=== PATIENT | male | born 1965 | race Caucasian/White ===

== ENCOUNTER → 2021-01-31 02:48 | Outpatient (CLI) | payer OTHER, SELFPAY ==
[2021-01-31 20:46] LABS: SARS-CoV-2 RNA PCR Negative
== END ==
PROVIDERS: PCP Internal Medicine; Visit Provider Internal Medicine Gastroenterology
DX: Z01.812 Encounter for preprocedural laboratory examination (principal); Z20.822 Contact with and (suspected) exposure to COVID-19
CPT/HCPCS: C9803; U0003; U0005

== ENCOUNTER 2021-02-03 02:06 | Day surgery (SDC) | payer OTHER, SELFPAY ==
[2021-01-24 15:14] VITALS: BMI 32.5
[2021-02-03 10:34] VITALS: BP 166/91; PULSE 104; RESP 18; TEMP 36.9; O2SAT 98
[2021-02-03] MEDS: LACTATED RINGERS 1,000 ML 150 ML IV CONT (10:45)
--- NOTE | 2021-02-03 11:10 | WPDANESEPPF ---
Anes - Initial Pre Proc Eval Procedure: Operation Date: 02/03/21 11:00 Proposed Procedures p Screening Colonoscopy - Jeffrey Duke MD Date/Time: 02/03/21 11:10 Surgeon: Jeffrey Duke MD Pre Op Diagnosis: neoplasm screening z12.11 Patient Data Age: 55 Gender: M Height: 1.83 m Weight: 109.6 kg Last Vital Signs Temp 98.4 F 02/03/21 10:34 Pulse 104 H 02/03/21 10:34 Resp 18 02/03/21 10:34 BP 166/91 H 02/03/21 10:34 Pulse Ox 98 02/03/21 10:34 Allergies Allergy/AdvReac Type Severity Reaction Status Date / Time No Known Allergies Allergy Verified 02/03/21 10:33 Home Medications Medication Instructions Recorded Confirmed Type allopurinol 100 mg PO DAILY 01/24/21 02/03/21 History duloxetine [Cymbalta] 30 mg PO DAILY 01/24/21 02/03/21 History furosemide 40 mg PO DAILY 01/24/21 02/03/21 History lisinopril 10 mg PO DAILY 01/24/21 02/03/21 History meloxicam 15 mg PO DAILY 01/24/21 02/03/21 History omeprazole 40 mg PO DAILY 01/24/21 02/03/21 History prednisone 5 mg PO DAILY 01/24/21 02/03/21 History Patient hx anesthesia problems: none Family hx anesthesia problems: none PMFSH Social History Social History Smoking status: Never smoker Substance use: never Substance use type: does not use Living arrangements: alone Gender identity (if verbalized by the patient): Male Spiritual care concerns: No Anes - Eval Final PreProcedure Day of Procedure 02/03/21 11:10 Patient weight: obese Heart: regular rate and rhythm Lungs: clear to auscultation Airway: Mallampati scale class II Neurological: alert and oriented Last oral intake: >/= 8 hours ASA classification: III Emergent: no Anesthetic plan: proceed Anesthesia type and monitoring: general GIVS and standard monitoring Informed Consent: The patient's anesthetic plan and its attendant risks and benefits were discussed with the patient/family/POA. Questions were solicited and answers provided to the satisfaction of the patient/family/POA.
--- NOTE | 2021-02-03 11:21 | PM.HPGS ---
History of Present Illness History of Present Illness Consent: Risks, benefits, and alternatives have been discussed and questions answered. Patient agrees to proceed with procedure. Chief complaint: neoplasm screening z12.11 Narrative: Odilon May is a 55 year old male here for first screening colonoscopy Review of Systems Constitutional: Constitutional: Denies headache(s) and Denies weakness Eyes: Eyes: Denies blurry vision ENT: Reports Normal hearing present, Denies headache(s) and Denies neck pain Cardiovascular: Cardiovascular: Denies chest pain and Denies dyspnea Respiratory: Respiratory: Denies dyspnea Gastrointestinal: Gastrointestinal: Reports no additional gastrointestinal complaints Genitourinary: Genitourinary: Denies dysuria Musculoskeletal: Musculoskeletal: Denies neck pain Integumentary/Breasts: Skin/Breast: Denies dry skin Neurologic: Reports Normal hearing present, Denies headache(s) and Denies weakness Psychiatric: Psychiatric: Denies anxiety Endocrine: Endocrine: Denies change in body appearance Hematologic/Lymphatic: Hematologic/Lymphatic: Denies easy bleeding Allergic/Immunologic: Allergic/Immunologic: Denies urticaria PMFSH Past Medical History Medical History (Updated 02/03/21 @ 11:21 by Jeffrey Duke MD) Colon cancer screening Social History Social History Smoking status: Never smoker Substance use: never Substance use type: does not use Living arrangements: alone Gender identity (if verbalized by the patient): Male Spiritual care concerns: No Meds Home Medications and Allergies Home Medications Medication Instructions Recorded Confirmed Type allopurinol 100 mg PO DAILY 01/24/21 02/03/21 History duloxetine [Cymbalta] 30 mg PO DAILY 01/24/21 02/03/21 History furosemide 40 mg PO DAILY 01/24/21 02/03/21 History lisinopril 10 mg PO DAILY 01/24/21 02/03/21 History meloxicam 15 mg PO DAILY 01/24/21 02/03/21 History omeprazole 40 mg PO DAILY 01/24/21 02/03/21 History prednisone 5 mg PO DAILY 01/24/21 02/03/21 History Allergies Allergy/AdvReac Type Severity Reaction Status Date / Time No Known Allergies Allergy Verified 02/03/21 10:33 Vital Signs Vital Signs - 24 hr 02/03/21 10:34 Temperature 98.4 F Pulse Rate 104 H Respiratory Rate 18 Blood Pressure 166/91 H Pulse Oximetry 98 Exam Const: General: comfortable and no acute distress HENMT: General nose exam: Normal nares present Eyes: General: appearance normal, both eyes and all related structures Neck: Neck: no JVD Resp: Auscultation: clear to auscultation bilaterally Cardio: Rate: regular rate Rhythm: regular rhythm GI: Inspection: non-distended GI Palp: Yes Soft to palpation Skin: General skin exam: normal color Neuro: General: gait normal Speech: normal speech Extrem: General: normal to inspection Psych: Mental Status: mental status grossly normal Assessment and Plan Assessment and plan (1) Colon cancer screening: Code(s): Z12.11 - Encounter for screening for malignant neoplasm of colon Status: Acute Assessment and Plan: colonoscopy
[2021-02-03 12:02] VITALS: BP 124/87; PULSE 91; RESP 23; O2SAT 94
[2021-02-03 12:12] VITALS: BP 130/84; PULSE 96; RESP 24; O2SAT 96
[2021-02-03 12:22] VITALS: BP 127/71; PULSE 80; RESP 19; O2SAT 100
== END 2021-02-03 12:49 | disposition home or self-care (01) ==
PROVIDERS: PCP Internal Medicine; Visit Provider Internal Medicine Gastroenterology
PROC: 0DJD8ZZ Inspection of Lower Intestinal Tract, Via Natural or Artificial Opening Endoscopic (ICD-10-PCS; CPT 45378; principal; 2021-02-03 11:00)
DX: Z12.11 Encounter for screening for malignant neoplasm of colon (principal); D12.3 Benign neoplasm of transverse colon; D12.4 Benign neoplasm of descending colon; D12.5 Benign neoplasm of sigmoid colon; D12.7 Benign neoplasm of rectosigmoid junction; K63.5 Polyp of colon; K64.8 Other hemorrhoids; E66.9 Obesity, unspecified; Z68.32 Body mass index [BMI] 32.0-32.9, adult
CPT/HCPCS: 45385; 45381; 88305; J2704; J7120

== ENCOUNTER 2021-02-05 21:23 | Emergency (ER) | payer OTHER, SELFPAY ==
--- NOTE | ~2021-02-05 | XR_ITS ---
EXAMINATION: XR knee RT 3V DATE: 02/05/2021 21:57 INDICATION: Right knee pain. TECHNIQUE: 4 views of right knee were obtained. COMPARISON: Right knee radiographs 05/09/2016 FINDINGS: There is a total right knee arthroplasty in near-anatomic alignment with patellar resurfaci ng. No fracture. No periprosthetic lucency to suggest loosening or infection. There is a moderate-siz ed knee joint effusion. There is prepatellar and superficial infrapatellar soft tissue swelling. IMPRESSION: 1. Total right knee arthroplasty in near-anatomic alignment. 2. Moderate-sized right knee joint effusion. Reviewed, dictated and finalized at location A.
[2021-02-05 21:25] VITALS: BP 139/91; PULSE 103; RESP 20; TEMP 36.8; O2SAT 99
[2021-02-05] MEDS: KETOROLAC (*BKC) 60 MG/2 ML VIAL IM (21:57)
--- NOTE | 2021-02-05 22:25 | ED.EXTPRO ---
HPI - Extremity Problem General Chief complaint: Extremity Problem,Nontraumatic Stated complaint: knee pain Time Seen by Provider: 02/05/21 21:25 Source: patient and RN notes reviewed Mode of arrival: ambulatory Limitations: no limitations History of Present Illness MD Complaint: extremity pain and joint paint (right knee pain after a twist x this PM.) Onset (ago): hour(s) (2) Location: right and knee Severity scale (1-10): 8 Quality: aching Radiation: none Relieving factors: immobilization and medication Related Data Home Medications Medication Instructions Recorded Confirmed allopurinol 100 mg PO DAILY 01/24/21 02/05/21 duloxetine [Cymbalta] 30 mg PO DAILY 01/24/21 02/05/21 furosemide 40 mg PO DAILY 01/24/21 02/05/21 lisinopril 10 mg PO DAILY 01/24/21 02/05/21 meloxicam 15 mg PO DAILY 01/24/21 02/05/21 omeprazole 40 mg PO DAILY 01/24/21 02/05/21 prednisone 5 mg PO DAILY 01/24/21 02/05/21 Allergies Allergy/AdvReac Type Severity Reaction Status Date / Time No Known Allergies Allergy Verified 02/03/21 10:33 Review of Systems Review of Systems: All systems reviewed & are unremarkable except as noted in HPI and below Musculoskeletal: Musculoskeletal: Reports arthralgias PMFSH Past Medical History Medical History Colon cancer screening Knee pain Social History Social History Smoking status: Never smoker Substance use: never Substance use type: does not use Gender identity (if verbalized by the patient): Male Spiritual care concerns: No Exam Const: General: no acute distress and alert Nutritional Appearance: well nourished Orientation/consciousness: patient oriented x3 Limitations: no limitations HENMT: Head: normal to inspection Ears: external ears normal and TM's normal bilaterally General nose exam: Normal external nose present and Normal nares present Mouth: Yes moist mucous membranes Eyes: Conjunctivae: conjunctivae normal Pupils: Equal, round and reactive pupils present EOM: EOMs intact bilaterally Neck: Neck: normal visual inspection and no lymphadenopathy Chest: Chest palpation & inspection: normal inspection of the chest Resp: Effort & Inspection: normal respiratory effort Auscultation: clear to auscultation bilaterally Cardio: Rate: regular rate Rhythm: regular rhythm GI: GI Palp: Yes Soft to palpation (non-tender.) Percussion: Yes normal to percussion : General: Yes bladder normal to palpation and Yes no CVA tenderness Male General Exam: Yes normal external exam Testes: Testes normal Back/Spine/Pelvis: Back: no CVA tenderness Skin: General skin exam: normal color Neuro: General: patient oriented x3, moves all extremities, no meningeal signs, no focal motor deficits and CN's II-XI intact bilaterally Extrem: General: no pedal edema Other: mild right knee effusion with no acute redness, deformity or marked swelling. full ROM with pain. no acute neurovascular deficit. Psych: Appearance: grossly normal and well kempt Mental Status: mental status grossly normal Affect: normal affect Thought content: Yes Normal thought content present Course Course Emergency Course: Pt was stable in the ED with less right knee pain. Reevaluation(s) Reevaluation #1: Pt was stable in the ED with less right knee pain Date: 02/06/21 Time: 22:21 Vital Signs Vital signs: Vital Signs Temperature 36.8 C 02/05/21 21:25 Pulse Rate 103 H 02/05/21 21:25 Respiratory Rate 02/05/21 21:25 Blood Pressure 139/91 H 02/05/21 21:25 Pulse Oximetry 99 02/05/21 21:25 Temperature 36.3 C L 02/05/21 22:36 Pulse Rate 84 02/05/21 22:36 Respiratory Rate 20 02/05/21 22:36 Blood Pressure 142/67 H 02/05/21 22:36 Pulse Oximetry 98 02/05/21 22:36 MDM - Extremity (Nontraumatic) Differential Diagnosis Differential diagnosis: Likely other (right knee sprain)
[2021-02-05 22:36] VITALS: BP 142/67; PULSE 84; RESP 20; TEMP 36.3; O2SAT 98
== END 2021-02-05 22:40 | disposition home or self-care (01) ==
PROVIDERS: Emergency Provider Emergency Medicine; PCP Internal Medicine
DX: S83.91XA Sprain of unspecified site of right knee, initial encounter (principal)
CPT/HCPCS: 73562; 96372; 99283; J1885; L1830

== ENCOUNTER 2021-02-13 10:52 | Outpatient (RCR) | payer OTHER, SELFPAY ==
--- NOTE | 2021-02-13 12:04 | PTOPEVAL ---
Thank you for referring Odilon May to [facility].? The patient is scheduled to be seen for therapy? ____x/week for ___ weeks. Please review, sign, date and return this plan of care JUAN ALBERTO. I agree with and certify that the following plan of care is medically necessary. Referring Physician Date Admitting Provider: Attending Provider: Sally Cason, MINILAB OPERATOR Referring Provider: *PT Outpatient Evaluation Start: 02/13/21 11:05 Freq: Status: Active Protocol: Document 02/13/21 11:05 [facility] (Rec: 02/13/21 12:03 [facility] [id number]) Therapy Assessment Status Assessment Status Assessment Status Evaluation Outpatient Past Medical History Neurological History Hx Neurological Disorders No Significant History Cardiovascular History Hx Hypercholesterolemia Yes Hx Hypertension Yes Respiratory History Hx Sleep Apnea Yes Gastrointestinal History Hx Other Gastrointestinal Disorders Yes: colonoscopy 02/03/21 Genitourinary History Hx Genitourinary Disorders No Significant History Musculoskeletal History Hx Arthritis Yes Hx Joint Replacement Yes: R. knee Hx Rheumatoid Arthritis Yes Hematological History Hx Hematological Disorders No Significant History Endocrine History Hx Endocrine Disorders No Significant History HEENT History Hx HEENT Disorders No Significant History Integumentary History Hx Skin Disorders No Significant History Reproductive History Hx Reproductive Disorders No Significant History Psychosocial History Hx Depression Yes Pain History History of Any Previous or Ongoing No Significant History Instance of Pain Anesthesia History Hx Anesthesia Reactions No Significant History Evaluation Information Problem Diagnosis R knee pain Onset 02/05/21 Additional Evaluation Detail LEFS = 42% functionally declined Subjective Information patient reports he has been Query Text:As Reported By Patient/ doing well with his knee Family replacement up until this past weekend when he stepped off his porch. he reports he did not twist the knee, but felt a sharp/immediate pop/pain along the inside of the R knee . he reports the ortho thinks his hardware looks goog, but he may have had an ligamentous injury along the medial R knee. he reports initially he had a palpable swollen knot,
--- NOTE | 2021-03-03 13:49 | PTOPEVAL ---
Thank you for referring Odilon May to [facility].? The patient is scheduled to be seen for therapy? ____x/week for ___ weeks. Please review, sign, date and return this plan of care JUAN ALBERTO. I agree with and certify that the following plan of care is medically necessary. Referring Physician Date Admitting Provider: Attending Provider: Sally Cason, CAMERA TUNING ENGINEER Referring Provider: *PT Outpatient Evaluation Start: 02/13/21 11:05 Freq: Status: Active Protocol: Document 03/03/21 13:00 [facility] (Rec: 03/03/21 13:47 [facility] [id number]) Therapy Assessment Status Assessment Status Assessment Status Evaluation Outpatient Past Medical History Neurological History Hx Neurological Disorders No Significant History Cardiovascular History Hx Hypercholesterolemia Yes Hx Hypertension Yes Respiratory History Hx Sleep Apnea Yes Gastrointestinal History Hx Other Gastrointestinal Disorders Yes: colonoscopy 02/03/21 Genitourinary History Hx Genitourinary Disorders No Significant History Musculoskeletal History Hx Arthritis Yes Hx Joint Replacement Yes: R. knee Hx Rheumatoid Arthritis Yes Hematological History Hx Hematological Disorders No Significant History Endocrine History Hx Endocrine Disorders No Significant History HEENT History Hx HEENT Disorders No Significant History Integumentary History Hx Skin Disorders No Significant History Reproductive History Hx Reproductive Disorders No Significant History Psychosocial History Hx Depression Yes Pain History History of Any Previous or Ongoing No Significant History Instance of Pain Anesthesia History Hx Anesthesia Reactions No Significant History Evaluation Information Problem Diagnosis R knee pain Onset 02/05/21 Subjective Information patient reports he feels good Query Text:As Reported By Patient/ this date. he reports no Family pain in the R knee this date. he reports the last few days he has no noticed any fluid in the R knee. he reports a mild bit of tightness in the R knee, but reports barely even enough to notice. Pain Assessment Timing of Pain Assessment Timing of Pain Assessment Assessment Pain Scale Pain Scale Used Numeric (1 - 10) Self Report Pain Assessment Right Knee(s) Reported Pain Level 0 Pain Score Pain Score 0: Self Report Interventions Used Interventions Used By Clinicians Activity or ADL's,Education, Exercise Lower Extremity R
== END 2021-03-03 14:41 | disposition home or self-care (01) ==
LOC: CHSPT 10:52
PROVIDERS: PCP Internal Medicine; Visit Provider Nurse Practitioner Family
DX: S86.911A Strain of unspecified muscle(s) and tendon(s) at lower leg level, right leg, initial encounter (principal)
CPT/HCPCS: 97110; 97161; 97530

== ENCOUNTER → 2021-09-12 01:59 | Outpatient (CLI) | payer MEDICARE, SELFPAY ==
[2021-09-12 11:50] LABS: SARS-CoV-2 RNA PCR Negative
== END ==
PROVIDERS: PCP Internal Medicine; Visit Provider Internal Medicine Gastroenterology
DX: Z01.812 Encounter for preprocedural laboratory examination (principal); Z20.822 Contact with and (suspected) exposure to COVID-19
CPT/HCPCS: C9803; U0003; U0005

== ENCOUNTER 2021-09-15 00:31 | Day surgery (SDC) | payer MEDICARE, SELFPAY ==
[2021-09-04 13:09] VITALS: BMI 33.0
[2021-09-15 10:08] VITALS: BP 155/86; PULSE 91; RESP 18; TEMP 36.1; O2SAT 99
--- NOTE | 2021-09-15 10:10 | P.PNAN_ITS ---
Anes - Initial Pre Proc Eval Procedure: Operation Date: 09/15/21 11:30 Proposed Procedures p Screening Colonoscopy - Jeffrey Duke MD Date/Time: 09/15/21 10:10 Surgeon: Jeffrey Duke MD Pre Op Diagnosis: hx of colon polyps Patient Data Age: 55 Gender: M Height: 1.85 m Weight: 113.6 kg Allergies Allergy/AdvReac Type Severity Reaction Status Date / Time No Known Allergies Allergy Verified 09/15/21 10:06 Home Medications Medication Instructions Recorded Confirmed Type allopurinol 100 mg PO DAILY 01/24/21 09/15/21 History duloxetine [Cymbalta] 30 mg PO DAILY 01/24/21 09/15/21 History furosemide 40 mg PO DAILY 01/24/21 09/15/21 History lisinopril 10 mg PO DAILY 01/24/21 09/15/21 History meloxicam 15 mg PO DAILY 01/24/21 09/15/21 History omeprazole 40 mg PO DAILY 01/24/21 09/15/21 History prednisone 5 mg PO DAILY 01/24/21 09/15/21 History tamsulosin 0.4 mg PO DAILY 09/04/21 09/15/21 History Patient hx anesthesia problems: none Family hx anesthesia problems: none Results Review: All pre-operative results and documents have been reviewed as part of the pre-operative evaluation. [facility] Past Medical History Medical History (Updated 09/15/21 @ 10:10 by Orlando Loaiza MD) Colon cancer screening HTN (hypertension) Knee pain Obesity MYA (obstructive sleep apnea) Social History Social History Smoking status: Never smoker Substance use: never Substance use type: does not use Living arrangements: alone Gender identity (if verbalized by the patient): Male Spiritual care concerns: No Anes - Eval Final PreProcedure Day of Procedure 09/15/21 10:10 Patient weight: obese Heart: regular rate and rhythm Lungs: clear to auscultation Airway: Mallampati scale class II and special considerations poor dentition (chipped teeth) Neurological: alert and oriented Last oral intake: >/= 8 hours ASA classification: III Emergent: no Anesthetic plan: proceed Anesthesia type and monitoring: general GIVS and standard monitoring Results Review: All pre-operative results and documents have been reviewed as part of the pre-operative evaluation. Informed Consent: The patient's anesthetic plan and its attendant risks and benefits were discussed with the patient/family/POA. Questions were solicited and answers provided to the satisfaction of the patient/family/POA.
[2021-09-15] MEDS: LACTATED RINGERS 1,000 ML 150 ML IV CONT (10:19)
--- NOTE | 2021-09-15 10:21 | PM.HPGS ---
History of Present Illness History of Present Illness Consent: Risks, benefits, and alternatives have been discussed and questions answered. Patient agrees to proceed with procedure. Chief complaint: hx of colon polyps Narrative: Odilon May is a 55 year old male with large polyp removed in piece-meal 01/2021 Review of Systems Constitutional: Constitutional: Denies headache(s) and Denies weakness Eyes: Eyes: Denies blurry vision ENT: Reports Normal hearing present, Denies headache(s) and Denies neck pain Cardiovascular: Cardiovascular: Denies chest pain and Denies dyspnea Respiratory: Respiratory: Denies dyspnea Gastrointestinal: Gastrointestinal: Reports no additional gastrointestinal complaints Genitourinary: Genitourinary: Denies dysuria Musculoskeletal: Musculoskeletal: Denies neck pain Integumentary/Breasts: Skin/Breast: Denies dry skin Neurologic: Reports Normal hearing present, Denies headache(s) and Denies weakness Psychiatric: Psychiatric: Denies anxiety Endocrine: Endocrine: Denies change in body appearance Hematologic/Lymphatic: Hematologic/Lymphatic: Denies easy bleeding Allergic/Immunologic: Allergic/Immunologic: Denies urticaria PMFSH Past Medical History Medical History (Updated 09/15/21 @ 10:21 by Jeffrey Duke MD) Adenomatous colon polyp Colon cancer screening HTN (hypertension) Knee pain Obesity MYA (obstructive sleep apnea) Social History Social History Smoking status: Never smoker Substance use: never Substance use type: does not use Living arrangements: alone Gender identity (if verbalized by the patient): Male Spiritual care concerns: No Meds Home Medications and Allergies Home Medications Medication Instructions Recorded Confirmed Type allopurinol 100 mg PO DAILY 01/24/21 09/15/21 History duloxetine [Cymbalta] 30 mg PO DAILY 01/24/21 09/15/21 History furosemide 40 mg PO DAILY 01/24/21 09/15/21 History lisinopril 10 mg PO DAILY 01/24/21 09/15/21 History meloxicam 15 mg PO DAILY 01/24/21 09/15/21 History omeprazole 40 mg PO DAILY 01/24/21 09/15/21 History prednisone 5 mg PO DAILY 01/24/21 09/15/21 History tamsulosin 0.4 mg PO DAILY 04/18/22 04/29/22 History Allergies Allergy/AdvReac Type Severity Reaction Status Date / Time No Known Allergies Allergy Verified 09/15/21 10:06 Vital Signs Vital Signs - 24 hr 09/15/21 10:08 Temperature 97.0 F L Pulse Rate 91 Respiratory Rate 18 Blood Pressure 155/86 H Pulse Oximetry 99 Exam Const: General: comfortable and no acute distress HENMT: General nose exam: Normal nares present Eyes: General: appearance normal, both eyes and all related structures Neck: Neck: no JVD Resp: Auscultation: clear to auscultation bilaterally Cardio: Rate: regular rate Rhythm: regular rhythm GI: Inspection: non-distended GI Palp: Yes Soft to palpation Skin: General skin exam: normal color Neuro: General: gait normal Speech: normal speech Extrem: General: normal to inspection Psych: Mental Status: mental status grossly normal Assessment and Plan Assessment and plan (1) Adenomatous colon polyp: Code(s): D12.6 - Benign neoplasm of colon, unspecified Status: Acute Assessment and Plan: colonoscopy
[2021-09-15 10:51] VITALS: BP 125/75; PULSE 71; RESP 14; O2SAT 97
[2021-09-15 11:01] VITALS: BP 139/91; PULSE 66; RESP 17; O2SAT 98
[2021-09-15 11:11] VITALS: BP 138/90; PULSE 65; RESP 16; O2SAT 98
== END 2021-09-15 11:17 | disposition home or self-care (01) ==
PROVIDERS: PCP Internal Medicine; Visit Provider Internal Medicine Gastroenterology
PROC: 0DJD8ZZ Inspection of Lower Intestinal Tract, Via Natural or Artificial Opening Endoscopic (ICD-10-PCS; CPT 45378; principal; 2021-09-15 11:30)
DX: Z09 Encounter for follow-up examination after completed treatment for conditions other than malignant neoplasm (principal); D12.3 Benign neoplasm of transverse colon; K63.5 Polyp of colon; K57.30 Diverticulosis of large intestine without perforation or abscess without bleeding; K64.8 Other hemorrhoids; I10 Essential (primary) hypertension; G47.33 Obstructive sleep apnea (adult) (pediatric); E66.9 Obesity, unspecified; Z68.32 Body mass index [BMI] 32.0-32.9, adult
CPT/HCPCS: 45385; 88305; C9803; J2704; J7120; U0003; U0005

== ENCOUNTER 2022-09-03 09:28 | Outpatient (CLI) | payer MEDICARE, MEDICAID, SELFPAY ==
--- NOTE | ~2022-09-03 | XR_ITS ---
Lumbosacral Spine: AP and lateral views Clinical History: Pain Findings: The normal lordotic curve is maintained. The vertebral bodies and posterior elements are i ntact. There is mild degenerative disc narrowing at L4-L5 and L5-S1. There is mild facet arthropathy from L3 through S1.. The sacroiliac joints are normally outlined. Impression: Mild degenerative change, as above. Reviewed, dictated and finalized at location M. Impression: Mild degenerative change, as above.
== END 2022-09-03 09:29 | disposition home or self-care (01) ==
LOC: CHSLAB 09:32
PROVIDERS: PCP Internal Medicine; Visit Provider Internal Medicine
DX: M54.50 Low back pain, unspecified (principal)
CPT/HCPCS: 72100

== ENCOUNTER 2022-10-11 09:03 | Outpatient (CLI) | payer MEDICARE, MEDICAID, SELFPAY ==
--- NOTE | 2022-10-11 11:00 | NEURO_ITS ---
IMPRESSION: Patient reports a history of numbness on the plantar surface of both feet. 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 # Clinical correlation recommended. Nerve Conduction Studies Anti Sensory Summary Table Stim Site NR Peak (ms) P-T Amp (?V) Site1 Site2 Delta-P (ms) Dist (cm) Sawyer (m/s) Left Sup Fibular Anti Sensory (Ant Lat Mall) 14 cm 4.2 3.8 14 cm Ant Lat Mall 4.2 16.0 38 Right Sup Fibular Anti Sensory (Ant Lat Mall) 14 cm 4.6 2.6 14 cm Ant Lat Mall 4.6 16.0 35 Left Sural Anti Sensory (Lat Mall) Calf 4.9 4.8 Calf Lat Mall 4.9 16.0 33 Right Sural Anti Sensory (Lat Mall) Calf 4.8 5.4 Calf Lat Mall 4.8 16.0 33 Motor Summary Table Stim Site NR Onset (ms) O-P Amp (mV) Site1 Site2 Delta-0 (ms) Dist (cm) Sawyer (m/s) Left Peroneal Motor (Vastus Med) Ankle 5.0 1.6 Popit Ankle 10.0 50.0 50 Popit 15.0 1.2 B Fib Ankle 7.3 38.0 52 B Fib 12.3 1.2 Right Peroneal Motor (Vastus Med) Ankle 4.7 2.8 Popit Ankle 12.5 50.0 40 Popit 17.2 2.1 B Fib Ankle 9.1 38.0 42 B Fib 13.8 2.4 Left Tibial Motor (Abd Giraldo Brev) Ankle 4.8 0.8 Knee Ankle 13.1 47.0 36 Knee 17.9 1.0 Right Tibial Motor (Abd Giraldo Brev) Ankle 5.4 1.5 Knee Ankle 10.9 46.0 42 Knee 16.3 0.5 F Wave Studies NR F-Lat (ms) L-R F-Lat (ms) Left Peroneal (Mrkrs) (EDB) 59.13 3.04 Right Peroneal (Mrkrs) (EDB) 56.09 3.04 Left Tibial (Mrkrs) (Abd Hallucis) 57.89 0.22 Right Tibial (Mrkrs) Run #2 (Abd Hallucis) 58.11 0.22 EMG Side Muscle Nerve Root Ins Act Fibs Amp Dur Recrt Comment Right AntTibialis Dp Br Fibular L4-5 Nml Nml Nml Nml Nml Right Gastroc Tibial S1-2 Nml Nml Nml Nml Reduced Right Fibularis Long Sup Br Fibular L5-S1 Nml Nml Nml Nml Reduced Right Flex Dig Long Tibial L5-S2 Nml Nml Nml Nml Nml Right Ext Dig Brev Dp Br Fibular L5, S1 Nml Nml Nml Nml Reduced Left AntTibialis Dp Br Fibular L4-5 Nml Nml Nml Nml Nml Left Gastroc Tibial S1-2 Nml Nml Nml Nml Nml Left Fibularis Long Sup Br Fibular L5-S1 Nml Nml Nml Nml Reduced Left Flex Dig Long Tibial L5-S2 Nml Nml Nml Nml Nml Left Ext Dig Brev Dp Br Fibular L5, S1 Nml Nml Nml Nml Reduced MTDD
== END 2022-10-11 09:04 | disposition home or self-care (01) ==
LOC: ANHNEURO 09:04
PROVIDERS: PCP Internal Medicine; Visit Provider Internal Medicine
DX: I73.89 Other specified peripheral vascular diseases (principal); R94.131 Abnormal electromyogram [EMG]
CPT/HCPCS: 95886; 95910

== ENCOUNTER 2023-03-26 23:57 | Emergency (ER) | payer MEDICARE, MEDICAID, SELFPAY ==
--- NOTE | ~2023-03-26 | XR_ITS ---
Portable chest x-ray Comparison: 07/11/2015 Clinical History: Chest pain Findings: Lungs are clear, without focal consolidation or pleural effusion. Cardiomediastinal silho uette is stable. Bones and soft tissues are unremarkable. Impression: Normal chest. Reviewed, dictated and finalized at location . NICAL ARTIST Impression: Normal chest.
[2023-03-27 00:02] VITALS: BP 152/74; PULSE 116; RESP 20; TEMP 38.3; O2SAT 96
--- NOTE | 2023-03-27 00:06 | ECG_ITS ---
Measurements Intervals Butler Rate: 110 P: 37 MT: 156 QRS: 1 QRSD: 88 T: 29 QT: 301 QTc: 409 Interpretive Statements SINUS TACHYCARDIA MINIMAL Q WAVES- INFERIOR LEADS BASELINE WANDER- II, III ABNORMAL ECG NO PREVIOUS ECG AVAILABLE FOR COMPARISON Electronically Signed On 03-27-2023 6:55:54 ETHNOGRAPHER by Porter Hays D.O.
--- NOTE | 2023-03-27 00:08 | ED.CHESTPAIN ---
HPI - Chest Pain General Chief Complaint: Chest Pain Stated Complaint: chest burning and dizziness Time Seen by Provider: 03/27/23 00:06 Source: patient and family Mode of arrival: ambulatory Limitations: no limitations History of Present Illness HPI narrative: 57 years old white male status post prostatectomy secondary to cancer 1 month ago at [facility] / Dr. Galindo. Patient complaining of cold chills, headache, started 3-4 days ago gets better on Tylenol and Advil. Tonight while lying down in bed felt a burning sensation across the chest with tender nails lasted for 20 minutes. He denies any shortness of breath. History of hypertension, hyperlipidemia, congestive heart failure, stop taking his Lasix for the last 1 and half weeks because urination comes suddenly hand he does not like that. currently patient wearing depend Related Data Home Medications Medication Instructions Recorded Confirmed allopurinol 100 mg tablet 100 mg PO BID 03/27/23 03/27/23 (Zyloprim) duloxetine 30 mg capsule,delayed 30 mg PO DAILY 03/27/23 03/27/23 release (Cymbalta) duloxetine 60 mg capsule,delayed 60 mg PO DAILY 03/27/23 03/27/23 release (Cymbalta) furosemide 40 mg tablet (Lasix) 40 mg PO DAILY 03/27/23 03/27/23 lisinopril 10 mg tablet (Zestril) 10 mg PO DAILY 03/27/23 03/27/23 meloxicam 15 mg tablet 15 mg PO DAILY 03/27/23 03/27/23 omeprazole 40 mg capsule,delayed 40 mg PO DAILY 03/27/23 03/27/23 release prednisone 5 mg tablet 5 mg PO DAILY 03/27/23 03/27/23 Allergies Allergy/AdvReac Type Severity Reaction Status Date / Time Qutawxn-[id number]-KjI Reductase AdvReac Unknown Unknown Verified 03/27/23 00:52 Inhibitor Review of Systems Review of Systems: All systems reviewed & are unremarkable except as noted in HPI and below PMFSH Past Medical History Medical History Adenomatous colon polyp Colon cancer screening HTN (hypertension) Knee pain Obesity MYA (obstructive sleep apnea) Social History Social History Smoking status: Never smoker Substance use: never Substance use type: does not use Living arrangements: alone Gender identity (if verbalized by the patient): Male Spiritual care concerns: No Exam Narrative: General appearance: Well-developed, well-nourished Skin: Normal color Head: Normocephalic, nontraumatic Eyes: Clear conjunctiva ENT: Oropharynx normal, ears normal, nose normal Neck: Supple, nontender Chest and respiratory: Airway patent, no respiratory distress, no accessory muscle use Heart: Regular rate/rhythm Abdomen: Soft, nontender, no organomegaly, quiet bowel sounds, surgical wounds dry and clean without any sign of infection Vascular: Normal peripheral pulses, normal capillary refill. Musculoskeletal: Normal range of motion, nontender back Neurologic: Alert and oriented ?3, PLANNING OFFICIAL is normal as tested, no gross motor deficit Course Vital Signs Vital signs: Vital Signs Temperature 38.3 C H 03/27/23 00:02 Pulse Rate 116 H 03/27/23 00:02 Respiratory Rate 20 03/27/23 00:02 Blood Pressure 152/74 H 03/27/23 00:02 Pulse Oximetry 96 03/27/23 00:02 Oxygen Delivery Room Air 03/27/23 00:02 Temperature 38.3 C H 03/27/23 00:02 Pulse Rate 97 03/27/23 01:00 Respiratory Rate 20 03/27/23 01:00 Blood Pressure 133/78 03/27/23 01:00 Pulse Oximetry 97 03/27/23 01:00 Oxygen Delivery Room Air 03/27/23 01:00 MDM - Chest Pain MDM Narrative Medical decision making narrative: patient presents with fever, Physical examination was unremarkable, vital signs s
[2023-03-27 00:34] LABS: Basophils Absolute Auto 0.03 K/mm3 (0.00-0.10); Basophils Percent Auto 0.2 % (0.0-1.0); Eosinophils Absolute Auto 0.04 K/mm3 (0.02-0.50); Eosinophils Percent Auto 0.3 % (1.0-6.0); Hematocrit 38.9 % (40.0-54.0); Immature Granulocyte Absolute 0.06 K/mm3 (0.00-0.00); Immature Granulocyte Percent A 0.5 % (0.0-0.0); Lymphocytes Absolute Auto 0.72 K/mm3 (1.10-4.50); Lymphocytes Percent Auto 5.7 % (18.0-42.0); Mean Corpuscular HGB Conc 33.4 g/dL (32.0-36.0); Mean Corpuscular Hemoglobin 30.9 pg (27.0-31.0); Mean Corpuscular Volume 92.4 fL (78.0-102.0); Mean Platelet Volume 9.2 fl (8.7-11.0); Monocytes Absolute Auto 0.89 K/mm3 (0.10-0.90); Monocytes Percent Auto 7.1 % (2.0-11.0); Neutrophils Absolute Auto 10.9 K/mm3 (1.7-7.2); Neutrophils Percent Auto 86.2 % (50.0-70.0); Platelet Count Result 257 K/mm3 (150-420); Red Blood Count 4.21 M/mm3 (4.70-6.10); Red Cell Distribution Width 13.5 % (11.6-14.4); White Blood Count 12.6 K/mm3 (4.8-10.8)
[2023-03-27] MEDS: ASPIRIN 81 MG CHEWABLE TABLET 324 MG PO (00:34)
[2023-03-27 00:44] LABS: Alanine Aminotransferase 25 U/L (16-63); Albumin Level 2.8 g/dL (3.4-5.0); Alkaline Phosphatase 82 U/L (46-116); Anion Gap 11 mmol/L (8-16); Aspartate Amino Transferase 16 U/L (15-37); Bilirubin,Total 0.4 mg/dL (0.00-1.00); Blood Urea Nitrogen 21 mg/dL (7-18); Calcium 9.1 mg/dL (8.5-10.1); Carbon Dioxide 25 mmol/L (21-32); Chloride 101 mmol/L (98-108); Estimated CRCL calculation 77 ml/min; Estimated Glomerular Filt Rate > 60; Glucose 148 mg/dL (70-99); Osmolality Calculated 290 mOsm/kg (285-295); Potassium 3.6 mmol/L (3.5-5.1); Sodium 137 mmol/L (136-145); Total Protein 7.3 g/dL (6.4-8.2); Troponin I 5.4 ng/L (0.00-60.4)
[2023-03-27 00:47] LABS: INR 1.1; Lactic Acid Reflex 1.8 mmol/L (0.4-2.0); Partial Thromboplastin Time 36.1 SEC (23.90-30.70); Prothrombin Time 11.9 Seconds (9.50-12.10)
[2023-03-27 00:48] VITALS: PULSE 110
[2023-03-27 00:48] LABS: CRP 22.2 mg/dL (0.0-0.9)
[2023-03-27 01:00] VITALS: BP 133/78; PULSE 97; RESP 20; O2SAT 97
[2023-03-27 01:06] LABS: Influenza A QL RT-PCR Negative (Negative); Influenza B QL RT-PCR Negative (Negative); SARS-CoV-2 RNA PCR Negative (Negative)
[2023-03-27 01:07] LABS: NT Pro B Type Natriuretic Pept 82 pg/mL (0-125)
[2023-03-27] MEDS: SODIUM CHLORIDE 0.9% IV 1,000 ML 999 ML IV CONT (01:07)
[2023-03-27 01:08] LABS: RSV RNA, RT-PCR Negative (Negative)
[2023-03-27 01:11] LABS: Appearance Urine Cloudy (Clear); Bilirubin Urine 1+ (Negative); Blood Urine 3+ (Negative); Glucose Urine UA Negative (Negative); Ketones Urine Negative (Negative); Leukocyte Esterase Ur 1+ LEU/UL (Negative); Nitrate Urine Positive (Negative); Protein Urine 2+ (Negative); Urobilinogen Urine >=8.0 mg/dL (0.2-1.0)
[2023-03-27 01:16] LABS: Add Urine Microscopic? YES; Bacteria Urine 2+ /hpf; Color Urine Dark Yellow (Yellow); RBC Urine 21-50 /hpf (0-2); Squamous Epithelial Cell Urine Few /hpf (Few); WBC Urine 51-75 /hpf (0-3)
[2023-03-27 01:17] LABS: Mucus Urine Few /lpf
[2023-03-27 02:25] VITALS: BP 132/87; PULSE 92; RESP 20; TEMP 37.7; O2SAT 97
--- NOTE | 2023-03-30 15:50 | PC.NURSE ---
Final Urine culture report: Escherichia Coli- patient was discharged on Clindamycin 300mg 1 po BID x10 days, medication is resistant to the organism, New prescription for Macrobid 100mg, 1 po BID x7 days, #14,[address] Hooks to be called to [facility] per patient request.
--- NOTE | 2023-04-02 12:56 | PC.NURSE ---
FINAL BLOOD CULTURE RESULTS X1 SET: NO GROWTH AFTER 5 DAYS. NO ACTION NEEDED.
--- NOTE | 2023-04-02 13:17 | PC.NURSE ---
FINAL BLOOD CULTURE X1: ISOLATE 1 : ESCHERICHIA COLI IN AEROBIC BOTTLE ONLY PT TO STOP MACROBID, START TAKING BACTRIM DS PO BID X [address] COX AND C&S. RX CALLED INTO [facility] IN [place]. SPOKE WITH PT, HE IS AWARE OF PLAN OF CARE. REPORTS HE IS FEELING BETTER, HAS NOT HAD FOLLOW UP WITH PMD OF YET.
== END 2023-03-27 02:30 | disposition home or self-care (01) ==
LOC: CHSED 03-27 02:21
PROVIDERS: Emergency Provider Emergency Medicine; PCP Internal Medicine
DX: N39.0 Urinary tract infection, site not specified (principal); I11.0 Hypertensive heart disease with heart failure; I50.9 Heart failure, unspecified; Z79.1 Long term (current) use of non-steroidal anti-inflammatories (NSAID); Z20.822 Contact with and (suspected) exposure to COVID-19; Z79.899 Other long term (current) drug therapy
CPT/HCPCS: 36415; 71045; 80053; 81001; 83605; 83880; 84484; 85025; 85610; 85730; 86140; 87040; 87077; 87086; 87088; 87147; 87186; 87637; 93005; 96365; 99284; A9270; J0696; J7030

== ENCOUNTER 2024-09-10 11:38 | Outpatient (CLI) | payer MEDICARE, SELFPAY ==
--- NOTE | ~2024-09-10 | XR_ITS ---
Clinical Indication: Cough PA and lateral views of the chest: Comparison: 03/27/2023 Findings: The lungs are clear, without evidence of focal consolidation or pleural effusion. Cardiome diastinal silhouette is within normal limits. Bones and soft tissues are unremarkable. Impression: Normal chest. Reviewed, dictated and finalized at location . Impression: Normal chest.
[2024-09-10 11:59] LABS: Add Urine Microscopic? YES; Bilirubin Urine Negative (Negative); Blood Urine Trace-intact (Negative); Color Urine Yellow (Yellow); Glucose Urine UA Negative (Negative); Hematocrit 43.9 % (40.0-54.0); Ketones Urine Negative (Negative); Leukocyte Esterase Ur 1+ (Negative); Mean Corpuscular HGB Conc 31.9 g/dL (32-36); Mean Corpuscular Hemoglobin 31.3 pg (27.0-31.0); Mean Corpuscular Volume 98.2 fL (78.0-102.0); Mean Platelet Volume 9.3 fl (8.7-11.0); Nitrate Urine Positive (Negative); Platelet Count Result 373 K/mm3 (150-420); Protein Urine 1+ (Negative); Red Blood Count 4.47 M/mm3 (4.70-6.10); Red Cell Distribution Width 15.6 % (11.6-14.4); Specific Grav Ur >= 1.030 (1.010-1.020); White Blood Count 7.7 K/mm3 (4.8-10.8); pH Urine 5.5 (5.0-8.0)
[2024-09-10 12:11] LABS: Appearance Urine Cloudy (Clear); Bacteria Urine 2+ /hpf; RBC Urine 0-2 /hpf (0-2); Squamous Epithelial Cell Urine Few /hpf (Few); WBC Urine >75 /hpf (0-3)
[2024-09-10 12:50] LABS: Alanine Aminotransferase 22 U/L (16-63); Albumin Level 3.6 g/dL (3.4-5.0); Alkaline Phosphatase 119 U/L (46-116); Anion Gap 8 mmol/L (4-12); Aspartate Amino Transferase 16 U/L (15-37); Bilirubin,Total 0.4 mg/dL (0.00-1.00); Blood Urea Nitrogen 14 mg/dL (7-18); Carbon Dioxide 30 mmol/L (21-32); Chloride 103 mmol/L (98-108); Cholesterol 227 mg/dL (0-200); Estimated Glomerular Filt Rate > 60; Glucose 100 mg/dL (70-99); HDL Direct 47 mg/dL (40-60); LDL Cholesterol Calculated 156 mg/dL (<130); Osmolality Calculated 292 mOsm/kg (285-295); Potassium 4.7 mmol/L (3.5-5.1); Sodium 141 mmol/L (136-145); Total Protein 7.5 g/dL (6.4-8.2); Triglycerides 119 mg/dL (0-150); Uric Acid 3.6 mg/dL (3.5-7.2)
[2024-09-10 12:54] LABS: Prostate Specific Antigen < 0.1 ng/mL (< OR = 4.0)
--- OUTSIDE RECORDS SUMMARY | 2024-09-10 13:09 | XMS_ITS | Referral Summary ---
Author Organization [facility] Address [address] [place] [address] Care Team Providers Care Certified Fire Investigator Name Role Phone Mikel Krueger MD Primary Care Provider [phone] Allergies Active Allergy Reactions Criticality Noted Date Comments Ezetimibe Muscle pain High Reaction: myalgias, Ulzfyqy-Rki-Qzy Reductase Inhibitors Muscle pain High Reaction: myalgias, Medications allopurinol (ZYLOPRIM) 100 mg tablet 11/12/2016 Active furosemide (LASIX) 40 mg tablet 10/29/2016 Active lisinopril (PRINIVIL,ZESTRI L) 10 mg tablet 11/22/2016 Act alejandrina omeprazole (PriLOSEC) 40 mg capsule Take 40 mg by mouth daily. Active HYDROcodone-acet aminophen (NORCO) 5-325 mg per tabletIndication s:Pain 0 06/09/2018 Active ibuprofen (ADVIL,MOTRIN) 600 mg tablet Take 1 tablet (600 mg total) by mouth every 6 (six) hours as needed for pain. 06/24/2018 Active Active Problems Problem Noted Date Diagnosed Date Obstructive sleep apnea syndrome 10/03/2013 Overview (08/22/2016): OBSTRUCTIVE SLEEP APNEA Disorder of intervertebral disc 10/03/2013 Overview (08/23/2016): DISC DIS NEC/NOS-LUMBAR Impaired glucose tolerance 11/26/2011 Overview (08/23/2016): Prediabetes Benign hypertension 12/31/2008 Overview (08/23/2016): BENIGN HYPERTENSION Hyperlipidemia 04/23/2008 Overview (08/22/2016): Hyperlipidemia NEC/NOS Adiposity 04/23/2008 Overview (08/22/2016): OBESITY NOS Immunizations Immunization Administration Dates Next Due Influenza, Split 07/06/2011 Social History Tobacco Use Types Packs/Day Years Used Date Smoking Tobacco: Never Smokeless Tobacco: Never Alcohol Use Standard Drinks/Week Comments No 0 (1 standard drink = 0.6 oz pur e alcohol) Sex and Gender Information Value Date Recorded Sex Assigned at Not on file Legal Sex Male 12:50 AM COAL MILL OPERATOR Gender Identity Not on file Sexual Orientation Not on file Last Filed Vital Signs Vital Sign Reading Time Taken Comments Blood Pressure 155/94 07/25/2018 8:36 AM COAL MILL OPERATOR Pulse 106 07/25/2018 8:36 AM COAL MILL OPERATOR Temperature - - Respiratory Rate - - Oxygen Saturation - - Inhaled Oxygen Concentration - - Weight 118.8 kg (262 lb) 07/25/2018 8:36 AM COAL MILL OPERATOR Height 185.4 cm (6' 1 ) 07/25/2018 8:36 AM COAL MILL OPERATOR Body Mass Index 34.57 07/25/2018 8:36 AM COAL MILL OPERATOR Plan of Treatment Not on file Insurance [employer] MEDICARE ADVANTAGE Care Teams Certified Fire Investigator Relationship Specialty Start Date End Date Mikel Krueger MD PCP - General 07/06/16
--- OUTSIDE RECORDS SUMMARY | 2024-09-10 13:09 | XMS_ITS | Clinical Summary ---
Author Organization [facility] Address [address] [place] [address] Care Team Providers Care Clinical Research Specialist Name Role Phone Mikel Krueger MD Primary Care Provider [phone] Allergies Active Allergy Reactions Criticality Noted Date Comments Ezetimibe Muscle pain High Reaction: myalgias, Yixzvzw-Csj-Wtk Reductase Inhibitors Muscle pain High Reaction: myalgias, [...] Administration Dates Next Due Influenza, Split 07/06/2011 Surgical History Surgery Date Site/Laterality Comments OTHER SURGICAL HISTORY 1989 L wrist cartilage tear: repair OTHER SURGICAL HISTORY Nasal polyps: Excision OTHER SURGICAL HISTORY 2009 LIPOPROTEIN DEFICIENCIES: OTHER SURGICAL HISTORY 1990 Left Wrist cartilage damage: Surgery OTHER SURGICAL HISTORY 1995 Left wrist: metal plate Medical History Medical History Date Comments Hx Other Medical 01/1990 L wrist cartila ge tear; Comments: [facility] this injury has had multiple procedures: 3 cartilage repairs, 1 bone fusion, 1 metal plate, 1 screw removal. dates from Jan 1990 - 1996 Hx Other Medical Nasal polyps Hx Other Medical LIPOPROTEIN DEF ICIENCIES; Comments: Henry Jacobsen DO; Outcome: Resolved from Problem List Hx Other Medical 1990 Left Wrist cart ilage damage Hx Other Medical L wrist bone fu garry Hx Other Medical 1995 Left wrist Hx Other Medical 1996 Left Wrist scew removed Hx Other Medical chest pain Family History Medical History Relation Name Comments Asthma Daughter Lyssa Asthma; Cancer Father Cancer; cancer started behind knee cap (per pt) Lung cancer Father Cancer -lung; C ause of : Cancer -lung Prostate cancer Maternal Grandfather Canc er -prostate; Cause of : Cancer -prostate Bone cancer Mother bone cancer; Breast cancer Mother Cancer -breast ; Cause of : Cancer -breast Breast cancer Sister 1 Vida Cancer -breast ; Throat cancer Sister 2 Angy Cancer -throat ; Diabetes Sister 3 Qian Diabetes [facility]; Relation Name Status Comments Daughter Lyssa Father Alive Maternal Grandfather (Age 70) Mother (Age 51) Sister 1 Vida Alive Sister 2 Angy Sister 3 Qian Social History Tobacco Use Types Packs/Day Years Used Date Smoking Tobacco: Never Smokeless Tobacco: Never Alcohol Use Standard Drinks/Week Comments No 0 (1 standard drink = 0.6 oz pur e alcohol) Sex and Gender Information Value Date Recorded Sex Assigned at Not on file Legal Sex Male 12:50 AM CHIEF LOCK TENDER OPERATOR Gender Identity Not on file Sexual Orientation Not on file Obstetrics History Last Filed Vital Signs Vital Sign Reading Time Taken Comments Blood Pressure 155/94 07/25/2018 8:36 AM CHIEF LOCK TENDER OPERATOR Pulse 106 07/25/2018 8:36 AM CHIEF LOCK TENDER OPERATOR Temperature - - Respiratory Rate - - Oxygen Saturation - - Inhaled Oxygen Concentration - - Weight 118.8 kg (262 lb) 07/25/2018 8:36 AM CHIEF LOCK TENDER OPERATOR Height 185.4 cm (6' 1 ) 07/25/2018 8:36 AM CHIEF LOCK TENDER OPERATOR Body Mass Index 34.57 07/25/2018 8:36 AM CHIEF LOCK TENDER OPERATOR Plan of Treatment Not on file Insurance MEDICARE ADVANTAGE Care Teams Clinical Research Specialist Relationship Specialty Start Date End Date Mikel Krueger MD [facility] - General 07/06/16
--- OUTSIDE RECORDS SUMMARY | 2024-09-10 13:09 | XMS_ITS | Clinical Summary ---
Author Organization [facility] Address [address] [place] [address] Phone Care Team Providers Care Data Entry Assistant Name Role Phone Mikel Krueger MD Primary Care Provider [phone] Allergies Active Allergy Reactions Criticality Noted Date Comments Ezetimibe Unknown High 07/03/2021 Reaction: myalgias, Reaction: myalgias, Statins Unknown High 07/03/2021 Reaction: myalgias, Medications allopurinol (ZYLOPRIM) 100 MG Tablet 06/08/2021 Active DULoxetine (CYMBALTA) [address] Particles 06/26/2021 Active furosemide (LASIX) 40 MG Tablet 06/08/2021 Active lisinopril (PRINIVIL, ZESTRIL) 10 MG Tablet Take 10 mg by mouth. 11/22/2016 Active meloxicam (MOBIC) 15 MG Tablet Take 15 mg by mouth. 04/01/2019 Active omeprazole (PriLOSEC) 40 MG CAPSULE DELAYED RELEASE Take 40 mg by mouth. Active predniSONE (DELTASONE) 5 MG Tablet Take 5 mg by mouth daily. Active ibuprofen (MOTRIN) 600 MG Tablet Take 600 mg by mouth. 06/24/2018 Active tamsulosin (FLOMAX) 0.4 MG Capsule Take 1 Capsule by mouth daily. 90 Capsule 3 07/03/2021 Active Social History Tobacco Use Types Packs/Day Years Used Date Smoking Tobacco: Never Smokeless Tobacco: Never Tobacco Cessation:Counseling Given: No Alcohol Use Standard Drinks/Week Comments Never 0 (1 standard drink = 0.6 oz pur e alcohol) Sex and Gender Information Value Date Recorded Sex Assigned at Not on file Legal Sex Male 8:22 AM TRAPEZE PERFORMER Gender Identity Not on file Sexual Orientation Not on file Last Filed Vital Signs Vital Sign Reading Time Taken Comments Blood Pressure 122/82 07/03/2021 9:10 AM TRAPEZE PERFORMER Pulse 102 07/03/2021 9:10 AM TRAPEZE PERFORMER Temperature 36.4 C (97.6 F) 07/03/2021 9:10 AM TRAPEZE PERFORMER Respiratory Rate 20 07/03/2021 9:10 AM TRAPEZE PERFORMER Oxygen Saturation 97% 07/03/2021 9:10 AM TRAPEZE PERFORMER Inhaled Oxygen Concentration - - Weight 115.3 kg (254 lb 3.2 oz) 07/03/2021 9:10 AM TRAPEZE PERFORMER Height 185.4 cm (6' 1 ) 07/03/2021 9:10 AM TRAPEZE PERFORMER Body Mass Index 33.54 07/03/2021 9:10 AM TRAPEZE PERFORMER Plan of Treatment Health Maintenance Due Date Last Done Comments Hepatitis C Virus (HCV) Screening 1965 TdaP Immunization 1965 Colonoscopy 11/10/2008 Colorectal Cancer Screening 11/10/2008 Cologuard 11/10/2013 Immunochemical Fecal Occult Blood 11/10/2013 Pneumococcal Immunization (5 0+ years) (1 of 1 - PCV) 11/10/2013 Zoster Immunization (1 of 2) 11/10/2013 Influenza Immunization (#1) 2024 1009/2016, 05/09/2016 SARS-COV-2 Immunization ( - 2023- season) 2024 Respiratory Syncytial Virus (RSV) Immunization (Adult) (1 - 1-dose 75+ series) 11/10/2038 PSA Discussion Discontinued 07/03/2021 Hepatitis B Immunization Aged Out No longer eligible based on patient's age to complete this topic Meningococcal Immunization (ACWY) Aged Out No longer eligible based on patient's age to complete this topic Rotavirus Immunization Aged Out No lo nger eligible based on patient's age to complete this topic Procedures Procedure Name Priority Date/Time Associated Diagnosis Comments PSA SCREEN Routine 07/03/2021 10:28 AM TRAPEZE PERFORMER Elevated PSA from Last 3 Months or Most Recently Relevant to Health Maintenance Results * (ABNORMAL) PSA SCREEN (07/03/2021 10:28 AM TRAPEZE PERFORMER) PSA SCREEN, TOTAL 6.22(H) <=4.00 ng/mL 07/03/2021 12:02 PM TRAPEZE PERFORMER [facility] Blood Venipuncture / Unknown 07/03/2021 10:28 AM TRAPEZE PERFORMER 07/03/2021 10:51 AM TRAPEZE PERFORMER Narrative [facility] - 07/03/2021 12:02 PM TRAPEZE PERFORMER PSA NOTE: The PSA value should be used in conjunction with information available from clinical evaluation and other diagnostic procedures. us Elias Bridges MD CHEMISTRY ORDERABLES Final Result [facility] [address] [place] [address] from Last 3 Months or Most Recently Relevant to Health Maintenance Insurance [facility]IC[email or web address] Advance Directives Documents on File Type Date Recorded Patient Lead Recreation Assistant Expl anation Other Advance Directive 07/05/2021 3:54 PM PSA LAB RESULTS Care Teams Data Entry Assistant Relationship Specialty Start Date End Date Mikel Krueger MD [address] [place] [address] PCP - General Internal Medicine 06/02/21
--- OUTSIDE RECORDS SUMMARY | 2024-09-10 13:10 | XMS_ITS | Data Portability ---
Author Organization [facility], [address] [address] ([place]) Address [address] [place] [address] Care Team Providers Care Roll Former Name Role Phone NEL CARLSON Primary Care Provider [phone] Assessment Encounter Date Assessment Date Assessment LastModified by Organization Details LastModified Time 09/09/2023 09/09/2023 IMPRESSION: 1. Polyarthralgias, likely related to underlying osteoarthritis rather than autoimmune disease. 2. Mechanical lower back pain. 3. Elevated C-reactive protein, a rather nonspecific finding. Do not at this time see any signs or symptoms of underlying active autoimmune disease. nv PLAN: 1. X-rays today of the hands and wrists. 2. Labs today, including a Sjogren s antibody panel, HLAB27 screen, C3 and C4 complement levels, anti-Urena and OPERATIONS AGENT antibodies, lxsq-loinpp-gytgfu ed DNA antibody level, arthritis panel, CBC, CMP, Westergren sed rate and C-reactive protein. 3. Discontinue meloxicam. 4. Trial of diclofenac 50 mg p.o. b.i.d. with food. 5. Taper prednisone by 2.5 mg decrements every 14 days until off. 6. Followup visit in 2-1/2 months for recheck. Today I had a lengthy discussion with the patient and his regarding my clinical impressions and overall recommendations. All of his questions and concerns are addressed in detail. I personally spent a total of 62 minutes on the patient on this date of service including both dpzj-ak-xojs and ekh-ihlz-dc-face time excluding any separately reportable services. nv Not available 09/10/2023 08:52:58 12/12/2023 12/12/2023 IMPRESSION: 1. PMR versus seronegative RA. 2. Osteoarthritis. 3. Visual blurring, likely related to steroid therapy. PLAN: 1. 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 2. Increase prednisone to 10 mg daily. 3. Minimize and avoid the use of diclofenac if at all possible. 4. Add methotrexate 12.5 mg orally once weekly at bedtime. The indications, risks, benefits and potential side effects of this medication are discussed with the patient today in detail. 5. Add folic acid 1 mg daily. 6. Labs in 4 weeks, then again in 8 weeks for DMARD monitoring. 7. Followup visit in 4 months for recheck. nv Not available 12/14/2023 12:41:53 05/28/2024 05/28/2024 IMPRESSION: 1. 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 2. Osteoarthritis. PLAN: 1. Patient will obtain labs today as ordered. I did emphasize to him the importance of compliance with laboratory ordering. He will continue DMARD labs every 3 months as ordered. 2. Continue current methotrexate, folic acid, low dose prednisone and diclofenac therapy for now. If his labs demonstrate normal acute phase reactants, we will taper his prednisone and try to get him off of steroids altogether. 3. Followup visit in 6 months. [email or web address] Not available 05/28/2024 16:31:51 Plan of Treatment Reminders Order Date Submit Date Provider Last Modified By Organization Details Last Modified Time Details Appointments Establish ed Patient 15.EST 2024 11:15A M Dr. Kapil Ramirez Not available Not available Not available Lab CBC 2023 024 [email or web address] [facility], [address] [place] [address], [id number], 05/21/2024 15:57:20 CMP, serum or plasma 2023 024 [email or web address] [facility], [address] [place] [address], [id number], 05/21/2024 15:57:20 ESR (erythroc yte sedimenta tion rate), blood 2023 024 [id number] [facility], [address] [place] [address], [id number], 05/21/2024 15:57:20 unlisted lab - CRP ([facility] only) 2023 024 [facility], [address] [place] [address], [id number], 05/21/2024 15:57:21 CBC 2023 024 [email or web address] [facility], [address] [place] [address], [id number], 05/21/2024 15:57:28 CMP, serum or plasma 2023 024 [facility], [address] [place] [address], [id number], 05/21/2024 15:57:28 ESR (erythroc yte sedimenta tion rate), blood 2023 024 [email or web address] [facility], [address] [place] [address], [id number], 05/21/2024 15:57:28 unlisted lab - CRP ([facility] only) 2023 024 [email or web address] [facility], [address] [place] [address], [id number], 05/21/2024 15:57:29 Referral None recorded. Procedures None recorded. Surgeries None recorded. Imaging None recorded. Medication Orders methotrex ate sodium 2.5 mg tablet 2023 024 [facility] #[id number], [address] [place], [address], 12/12/2023 22:08:38 folic acid 1 mg tablet 2023 024 [facility] #[id number], [address] [place], [address], 12/12/2023 22:08:38 Patient TargetsNo targets recorded. Patient InstructionsNo instructions recorded. Reason for Referral None Reported. Results Created Date Observation Date Name Description Value Unit Range Abnormal Flag Note LastModifiedBy Organization Detail LastModifiedTime 09/09/19 24 09/09/2023 CBC CBC Not Available [facility] [address] [place] [address], [id number], 09/09/2023 18:51:33 09/09/19 24 09/09/2023 CBC WBC 7.9 K/uL 4.8- 10.8 Not Available [facility] [address] [place] [address], [id number], 09/09/2023 18:51:33 09/09/19 24 09/09/2023 CBC RBC 4.65 M/uL 4.70-6 .10 low Not Available [facility] [address] [place] [address], 15001, 09/09/2023 18:51:33 09/09/19 24 09/09/2023 CBC HGB 14.1 g/dL 14.0-1 8.0 Not Available [facility] [address] [place] [address], 48339, 09/09/2023 18:51:33 09/09/19 24 09/09/2023 CBC HCT 42.4 % 42.0-5 2.0 Not Available [facility] [address] [place] [address], [id number], 09/09/2023 18:51:33 09/09/19 24 09/09/2023 CBC MCV 91.2 fL 80.0-9 4.0 Not Available [facility] [address] [place] [address], [id number], 09/09/2023 18:51:33 09/09/19 24 09/09/2023 CBC MCH 30.3 pg 27.0- 31.0 Not Available [facility] [address] [place] [address], [id number], 09/09/2023 18:51:33 09/09/19 24 09/09/2023 CBC MCHC 33.3 g/dL 32.0-3 6.0 Not Available [facility] [address] [place] [address], [id number], 09/09/2023 18:51:33 09/09/19 24 09/09/2023 CBC RDW-SD 48.1 fL 35.1 - 46.3 high Not Available [facility] [address] [place] [address], 73000, 09/09/2023 18:51:33 09/09/19 24 09/09/2023 CBC plt 384 K/uL 130-40 0 Not Available [facility] [address] [place] [address], [id number], 09/09/2023 18:51:33 09/09/19 24 09/09/2023 CBC MPV 9.7 fL 7.5- 11.8 Not Available [facility] [address] [place] [address], [id number], 09/09/2023 18:51:33 09/09/19 24 09/09/2023 ESR (eryt hrocy te sedim entat ion rate) , blood sed rate 49 mm/HR 0 - 20 high Not Available [facility] [address] [place] [address], [id number], 09/09/2023 19:15:35 09/09/19 24 09/09/2023 CMP, serum or plasm a comp. met. panel Not Available [facility] [address] [place] [address], [id number], 09/09/2023 19:42:14 09/09/19 24 09/09/2023 CMP, serum or plasm a sodium 139 mmol/ L 136-14 6 Not Available [facility] [address] [place] [address], [id number], 09/09/2023 19:42:14 09/09/19 24 09/09/2023 CMP, serum or plasm a potassium 4.5 mmol/ L 3.5-5. 1 Not Available [facility] [address] [place] [address], [id number], 09/09/2023 19:42:14 09/09/19 24 09/09/2023 CMP, serum or plasm a chloride 104 mmol/ L 98-110 Not Available [facility] [address] [place] [address], [id number], 09/09/2023 19:42:14 09/09/19 24 09/09/2023 CMP, serum or plasm a CO2 26 mEq/L 20-32 Not Available [facility] [address] [place] [address], [id number], 09/09/2023 19:42:14 09/09/19 24 09/09/2023 CMP, serum or plasm a anion gap 14 mmol/ L 10-22 Not Available [facility] [address] [place] [address], 14683, 09/09/2023 19:42:14 09/09/19 24 09/09/2023 CMP, serum or plasm a glucose 98 mg/dL 70-100 Not Available [facility] [address] [place] [address], 03464, 09/09/2023 19:42:14 09/09/19 24 09/09/2023 CMP, serum or plasm a calcium 9.7 mg/dL 8.4-10 .4 Not Available [facility] [address] [place] [address], 75389, 09/09/2023 19:42:14 09/09/19 24 09/09/2023 CMP, serum or plasm a total protein 7.4 g/dL 6.4-8. 3 Not Available [facility] [address] [place] [address], 36544, 09/09/2023 19:42:14 09/09/19 24 09/09/2023 CMP, serum or plasm a albumin 4.5 g/dL 3.5-5. 3 Not Available [facility] [address] [place] [address], 60711, 09/09/2023 19:42:14 09/09/19 24 09/09/2023 CMP, serum or plasm a ALP 98 U/L 44 - 127 Not Available [facility] [address] [place] [address], 66472, 09/09/2023 19:42:14 09/09/19 24 09/09/2023 CMP, serum or plasm a AST (SGOT) 22 U/L 10-40 Not Available [facility] [address] [place] [address], [id number], 09/09/2023 19:42:14 09/09/19 24 09/09/2023 CMP, serum or plasm a total bilirubin 0.3 mg/dL 0.2-1. 0 Not Available [facility] [address] [place] [address], 63325, 09/09/2023 19:42:14 09/09/19 24 09/09/2023 CMP, serum or plasm a ALT (SGPT) 32 U/L 8-35 Not Available [facility] [address] [place] [address], 58030, 09/09/2023 19:42:14 09/09/19 24 09/09/2023 CMP, serum or plasm a BUN 16 mg/dL 7-21 Not Available [facility] [address] [place] [address], 39723, 09/09/2023 19:42:14 09/09/19 24 09/09/2023 CMP, serum or plasm a creatinine 0.9 mg/dL 0.7-1. 3 Not Available [facility] [address] [place] [address], 42674, 09/09/2023 19:42:14 09/09/19 24 09/09/2023 CMP, serum or plasm a GFR(non-afri can lithuanian) 92 Not Available [facility] [address] [place] [address], 25688, 09/09/2023 19:42:14 09/09/19 24 09/09/2023 CMP, serum or plasm a GFR() 111 (POWER HAIR CLIPPER CAITLIN KIDNE Y DISEA SE HAS A GFR LESS THAN 60 ML/AZ N/1.7 3 MM FOR A PERIO D OF THREE MONTH S OR MORE. ) Not Available [facility] [address] [place] [address], [id number], 09/09/2023 19:42:14 09/09/19 24 09/09/2023 C-carlene ctive prote in, quant itati ve, serum or plasm a CRP high Not Available [facility] [address] [place] [address], 48341, 09/09/2023 19:42:16 09/09/19 24 09/09/2023 C-carlene ctive prote in, quant itati ve, serum or plasm a CRP 1.4 mg/dL <0.4-0 .5 high Not Available [facility] [address] [place] [address], 14343, 09/09/2023 19:42:16 09/09/19 24 09/10/2023 C4 (comp lemen t), serum or plasm a complement C4 42 mg/dL 12-38 high Not Available [facility] [address] [place] [address], 49263, 09/10/2023 11:39:17 09/09/19 24 09/10/2023 sjogr en antib radha panel (ssa, ssb, ro, la), serum sjogren's Ab (ssa Not Available [facility] [address] [place] [address], 97440, 09/10/2023 11:39:21 09/09/19 24 09/10/2023 sjogr en antib radha panel (ssa, ssb, ro, la), serum *ssa result <0.2 ai 0.0-0. 9 Not Available [facility] [address] [place] [address], 86364, 09/10/2023 11:39:21 09/09/19 24 09/10/2023 sjogr en antib radha panel (ssa, ssb, ro, la), serum *ssb result <0.2 ai 0.0-0. 9 Not Available [facility] [address] [place] [address], [id number], 09/10/2023 11:39:21 09/09/19 24 09/10/2023 urena Ab + airline pilot/first officer Ab, serum sm/airline pilot/first officer antibodies Not Available [facility] [address] [place] [address], 85706, 09/10/2023 11:39:23 09/09/19 24 09/10/2023 urena Ab + airline pilot/first officer Ab, serum sm antibodies <0.2 ai 0.0-0. 9 Not Available [facility] [address] [place] [address], 61714, 09/10/2023 11:39:23 09/09/19 24 09/10/2023 urena Ab + airline pilot/first officer Ab, serum airline pilot/first officer antibody. 0.7 ai 0.0-0. 9 Not Available [facility] [address] [place] [address], 32850, 09/10/2023 11:39:23 09/09/19 24 09/10/2023 C3 (comp lemen t), serum or plasm a complement C3 175 mg/dL 82-167 high Not Available [facility] [address] [place] [address], 84985, 09/10/2023 11:39:25 09/09/19 24 09/09/2023 arthr itis panel uric acid 4.2 mg/dL 4.4-7. 6 low Not Available [facility] [address] [place] [address], 94038, 09/12/2023 12:18:18 09/09/19 24 09/09/2023 arthr itis panel rf <3.5 IU/mL <3.5-1 4 Not Available [facility] [address] [place] [address], 69780, 09/12/2023 12:18:18 09/09/19 24 09/09/2023 arthr itis panel ccp antibody, IgG <0.54 U/mL <=4.9 Not Available [facility] [address] [place] [address], 68011, 09/12/2023 12:18:18 09/09/19 24 09/12/2023 arthr itis panel arthritis panel Not Available [facility] [address] [place] [address], 35691, 09/12/2023 12:18:18 09/09/19 24 09/12/2023 arthr itis panel ENRIQUE screen NEGATI VE negati ve Perfo rmed by Bio-R ad enzym e immun oassa y Not Available [facility] [address] [place] [address], 00591, 09/12/2023 12:18:18 09/09/19 24 09/16/2023 DNA doubl e stran d Ab, QL, serum DNA Ab; double stranded NEGATI VE negati ve Not Available [facility] [address] [place] [address], 08963, 09/16/2023 15:13:20 09/09/19 24 09/18/2023 hla-B 27, blood hla-B27, DNA typing Not Available [facility] [address] [place] [address], 90522, 09/18/2023 11:38:39 09/09/19 24 09/18/2023 hla-B 27, blood hla-B27 NEGATI VE HLA-B *27 Negat alejandrina B27 allel e inter preta tion for all loci based on IMGT/ HLA datab ase versi on . 0 This test was devel oped and its perfo rmanc e tatum cteri stics deter mined by [facility]. It has not been clear ed or appro betty by the Food and Drug Admin istra tion. [facility] CLIA ID Patito cobb [id number] THis test was perfo rmed using Polym erase Chain React ion (PCR) and Seque nce Speci fic Oligo nucle otide Probe s (SSOP ) techn ique. Seque nce Based Typin g (SBT) may be used as a suppl ement al metho d when neces nader. If you have quest ions, plejustyna e call HLA custo darinel servi ce at [phone] or email at HLA [email or web address] or.c om. Not Available [facility] [address] [place] [address], 01518, 09/18/2023 11:38:39 09/09/19 24 09/09/2023 arthr itis panel arthritis panel Not Available [facility] [address] [place] [address], 26839, 09/09/2023 20:07:53 09/09/19 24 09/09/2023 arthr itis panel uric acid 4.2 mg/dL 4.4-7. 6 low Not Available [facility] [address] [place] [address], 98634, 09/09/2023 20:07:53 09/09/19 24 09/09/2023 arthr itis panel ENRIQUE screen PENDIN G Not Available [facility] [address] [place] [address], 19348, 09/09/2023 20:07:53 09/09/19 24 09/09/2023 arthr itis panel rf <3.5 IU/mL <3.5-1 4 Not Available [facility] [address] [place] [address], 26703, 09/09/2023 20:07:53 09/09/19 24 09/09/2023 arthr itis panel ccp antibody, IgG <0.54 U/mL <=4.9 Not Available [facility] [address] [place] [address], 35850, 09/09/2023 20:07:53 09/09/19 24 09/09/2023 arthr itis panel arthritis panel Not Available [facility] [address] [place] [address], 20085, 09/09/2023 19:42:18 09/09/19 24 09/09/2023 arthr itis panel uric acid 4.2 mg/dL 4.4-7. 6 low Not Available [facility] [address] [place] [address], 62130, 09/09/2023 19:42:18 09/09/19 24 09/09/2023 arthr itis panel ENRIQUE screen PENDIN G Not Available [facility] [address] [place] [address], 83539, 09/09/2023 19:42:18 09/09/19 24 09/09/2023 arthr itis panel rf PENDIN G Not Available [facility] [address] [place] [address], 20705, 09/09/2023 19:42:18 09/09/19 24 09/09/2023 arthr itis panel ccp antibody, IgG PENDIN G Not Available [facility] [address] [place] [address], 89323, 09/09/2023 19:42:18 09/09/19 24 09/09/2023 urena Ab + airline pilot/first officer Ab, serum sm and sm/airline pilot/first officer antibodies Not Available [facility] [employer], [place] [address] [address], [address], 05/14/2024 06:38:12 09/09/19 09/09/2023 urena Ab + airline pilot/first officer Ab, serum sm antibodies <0.2 ai 0.0-0. 9 Not Available [facility] [employer] [employer] [address], [address], 05/14/2024 06:38:12 09/09/19 24 09/09/2023 urena Ab + airline pilot/first officer Ab, serum airline pilot/first officer antibody 0.7 ai 0.0-0. 9 Not Available [employer] [employer] [employer] [address] [facility] [address], [place], [address], 05/14/2024 06:38:12 09/09/19 24 09/09/2023 ESR (eryt hrocy te sedim entat ion rate) , blood sed rate 49 mm/HR 0 - 20 high Not Available [facility] - [address], [place], [address], 05/14/2024 06:38:12 09/09/19 24 09/09/2023 C-carlene ctive prote in, quant itati ve, serum or plasm a CRP Not Available [facility] [place] [address], [address], 05/14/2024 06:38:11 09/09/19 24 09/09/2023 C-carlene ctive prote in, quant itati ve, serum or plasm a CRP 1.4 mg/dL <0.4-0 .5 high Not Available [facility] [place] [address], [place], [address], 05/14/2024 06:38:11 09/09/19 24 09/09/2023 C4 (comp lemen t), serum or plasm a complement C4 42 mg/dL 12-38 high Not Available [facility] [address], [place], [address], 05/14/2024 06:38:11 09/09/19 24 09/09/2023 C3 (comp lemen t), serum or plasm a complement C3 175 mg/dL 82-167 high Not Available [facility] ([facility]) [address] [facility], [place], [address], 05/14/2024 06:38:10 09/09/19 24 09/09/2023 DNA doubl e stran d Ab, QL, serum DNA antibody negati ve negati ve Not Available Not Available 05/14/2024 06:38:10 09/09/19 24 09/09/2023 arthr itis panel arthritis panel Not Available Not Available 04/20 06:38:08 09/09/19 24 09/09/2023 arthr itis panel uric acid 4.2 mg/dL 4.4-7. 6 low Not Available Not Available 05/14/2024 06:38:08 09/09/19 24 09/09/2023 arthr itis panel ENRIQUE screen negati ve negati ve perfo rmed by bio-r ad enzym e immun oassa y ----- Not Available Not Available 05/14/2024 06:38:08 09/09/19 24 09/09/2023 arthr itis panel rheumatoid factor <3.5 IU/mL <3.5-1 4 Not Available Not Available 05/14/2024 06:38:08 09/09/19 24 09/09/2023 arthr itis panel ccp antibody, IgG <0.54 U/mL <=4.9 Not Available Not Available 04/20 06:38:08 09/09/19 24 09/09/2023 hla-B 27, blood hla-B27, DNA typing Not Available Not Available 04/20 06:38:07 09/09/19 24 09/09/2023 hla-B 27, blood hla-B27 negati ve hla-B *27 negat alejandrina B27 allel e inter preta tion for all loci based on imgt/ hla datab ase versi on 0 this test was devel oped and its perfo rmanc e tatum cteri stics deter mined by [facility]. IT has not been clear ed or appro betty by the food and drug admin istra tion. hla lab clia id patito cobb [id number] this test was perfo rmed using polym erase chain react ion (PCR) and seque nce speci fic oligo nucle otide probe s (ssop ) techn ique. seque nce based typin g (sbt) may BE used a suppl ement al metho d when neces nader. if you have quest ions, pleas e call [facility] [place] custo darinel servi ce at [phone] or email at [email or web address] or.c om. ----- Not Available Not Available 05/14/2024 06:38:07 09/09/19 24 09/09/2023 sjogr en antib radha panel , serum sjogren's Ab (ssa&ssb) Not Available Not Available 06:38:06 09/09/19 24 09/09/2023 sjogr en antib radha panel , serum *ssa result <0.2 ai 0.0-0. 9 Not Available Not Available 05/14/2024 06:38:06 09/09/19 24 09/09/2023 sjogr en antib radha panel , serum *ssb result <0.2 ai 0.0-0. 9 Not Available Not Available 05/14/2024 06:38:06 09/09/19 24 09/09/2023 CMP, serum or plasm a comp. met. panel Not Available Not Available 04/20 06:37:58 09/09/19 24 09/09/2023 CMP, serum or plasm a sodium 139 mmol/ L 136-14 6 Not Available Not Available 05/14/2024 06:37:58 09/09/19 24 09/09/2023 CMP, serum or plasm a potassium 4.5 mmol/ L 3.5-5. 1 Not Available Not Available 05/14/2024 06:37:58 09/09/19 24 09/09/2023 CMP, serum or plasm a chloride 104 mmol/ L 98-110 Not Available Not Available 05/14/20 06:37:58 09/09/19 24 09/09/2023 CMP, serum or plasm a CO2 26 mEq/L 20-32 Not Available Not Availa ble 05/14/2024 06:37:58 09/09/19 24 09/09/2023 CMP, serum or plasm a anion gap 14 mmol/ L 10-22 Not Available Not Available 05/14/20 06:37:58 09/09/19 24 09/09/2023 CMP, serum or plasm a glucose 98 mg/dL 70-100 Not Available Not Availa ble 05/14/2024 06:37:58 09/09/19 24 09/09/2023 CMP, serum or plasm a calcium 9.7 mg/dL 8.4-10 .4 Not Available Not Available 05/14/2024 06:37:58 09/09/19 24 09/09/2023 CMP, serum or plasm a total protein 7.4 g/dL 6.4-8. 3 Not Available Not Available 05/14/2024 06:37:58 09/09/19 24 09/09/2023 CMP, serum or plasm a albumin 4.5 g/dL 3.5-5. 3 Not Available Not Available 05/14/2024 06:37:58 09/09/19 24 09/09/2023 CMP, serum or plasm a ALP 98 U/L 44 - 127 Not Available Not Available 05/14/2024 06:37:58 09/09/19 24 09/09/2023 CMP, serum or plasm a AST/SGOT 22 U/L 10-40 Not Available Not Avail able 05/14/2024 06:37:58 09/09/19 24 09/09/2023 CMP, serum or plasm a total bili 0.3 mg/dL 0.2-1. 0 Not Available Not Available 05/14/2024 06:37:58 09/09/19 24 09/09/2023 CMP, serum or plasm a ALT/SGPT 32 U/L 8-35 Not Available Not Avail able 05/14/2024 06:37:58 09/09/19 24 09/09/2023 CMP, serum or plasm a BUN 16 mg/dL 7-21 Not Available Not Availa ble 05/14/2024 06:37:58 09/09/19 24 09/09/2023 CMP, serum or plasm a creatinine 0.9 mg/dL 0.7-1. 3 Not Available Not Available 05/14/2024 06:37:58 09/09/19 24 09/09/2023 CMP, serum or plasm a GFR;non-afri can lithuanian 92 Not Available Not Available 05/14/2024 06:37:58 09/09/19 24 09/09/2023 CMP, serum or plasm a GFR; 111 (cloth dyeing range tender caitlin kidne y disea se has A GFR less than 60 mL/mi n/1.7 3 mm for A perio d of three month s or more. ) ----- 111 Not Available Not Available 05/14/2024 06:37:58 09/09/19 24 09/09/2023 CBC CBC. Not Available Not [facility] 05/14/2024 06:37:54 09/09/19 24 09/09/2023 CBC WBC 7.9 K/uL 4.8- 10.8 Not Available Not Available 05/14/2024 06:37:54 09/09/19 24 09/09/2023 CBC RBC 4.65 M/uL 4.70-6 .10 low Not Available Not Available 05/14/2024 06:37:54 09/09/19 24 09/09/2023 CBC hemoglobin (HGB) 14.1 g/dL 14.0-1 8.0 Not Available Not Available 05/14/2024 06:37:54 09/09/19 24 09/09/2023 CBC hematocrit (HCT) 42.4 % 42.0-5 2.0 Not Available Not Available 05/14/2024 06:37:54 09/09/19 24 09/09/2023 CBC MCV 91.2 fL 80.0-9 4.0 Not Available Not Available 05/14/2024 06:37:54 09/09/19 24 09/09/2023 CBC MCH 30.3 pg 27.0- 31.0 Not Available Not Available 05/14/2024 06:37:54 09/09/19 24 09/09/2023 CBC MCHC 33.3 g/dL 32.0-3 6.0 Not Available Not Available 05/14/2024 06:37:54 09/09/19 24 09/09/2023 CBC RDW-SD 48.1 fL 35.1 - 46.3 high Not Available Not Available 05/14/2024 06:37:54 09/09/19 24 09/09/2023 CBC plt 384 K/uL 130-40 0 Not Available Not Available 05/14/2024 06:37:54 09/09/19 24 09/09/2023 CBC MPV 9.7 fL 7.5- 11.8 Not Available Not Available 05/14/2024 06:37:54 Result Notes None recorded. Problems Name Problem SNOMED Code Status Onset Date Resolution Date Notes Provider Name and Address Organization Details Recorded Time Hyperuricem ia 46744772 Active 2023 [facility] Mechanical low back pain 470352250 Active 2023 [facility] 12:[facility] Pain of bilateral hands [id number] 9109 Active 2023 Onesimo Boswell [facility] 4 17:18:47 Multiple joint pain 11196707 Active 2023 [facility] 4 17:23[facility]41 Osteoarthri tis 327019519 Active 2023 Kapil Ramirez MD [address] [place] [address], [phone], [facility] 4 18:36:54 Low back pain 133012318 Active 2023 Kapil Ramirez MD [address] [place] [address], [phone], [facility] 4 18:37:01 C-reactive protein above reference range 0565232059005 04 Active 2023 Kapil Ramirez MD [address] [place] [address], [phone], [facility] 4 18:37:17 Seronegativ e rheumatoid arthritis 923951928 Active 2023 [facility] 4 11:38:53 Notes:Some problems listed i n Documents: #[id number], #[id number], #[id number], #[id number] could not be added to this patient's chart. Please review these documents and add these problems to the patient's chart manually as needed. Problem Notes None recorded. Medical Equipment None Reported. Allergies Allergen ID Allergen Name Allergen Category Reaction Reaction Severity Criticality Documentation Date Start Date Code Code System Note Provider Name and Address Organization Details Recorded Time 9043456 Product containin g 3-hydroxy -3-methyl glutaryl- coenzyme A reductase inhibitor (product) medicatio n myalgias (muscle pain) Not available Not available 09/09/2023 09402 009 SNOMED Not Available Not Available Not Available Medications Name Sig Start Date Stop Date Status Note LastModified by Organization Details LastModified Time furosemide 40 mg tablet TAKE 1 TABLET BY MOUTH EVERY DAY IN THE MORNING active Not Available Not Available No t Available silver sulfadiazin e 1 % topical cream APPLY TO WOUND TWICE A DAY 12/11 completed Not Available Not Available Not Available meloxicam 15 mg tablet TAKE 1 TABLET BY MOUTH EVERY DAY 09/08 completed Not Available Not Available Not Available prednisone 5 mg tablet Take 1 tablet by mouth daily 2024 active Not Available Not Available Not Avai lable allopurinol 100 mg tablet TAKE 2 TABLETS BY MOUTH DAILY active Not Available Not Available No t Available ciprofloxac in 500 mg tablet TAKE 1 TABLET BY MOUTH EVERY 12 HOURS 09/08 completed Not Available Not Available Not Available sulfamethox azole 800 mg-trimetho prim 160 mg tablet TAKE 1 TABLET BY MOUTH TWICE A DAY 09/08 completed Not Available Not Available Not Available omeprazole 40 mg capsule,del ayed release TAKE 1 CAPSULE BY MOUTH EVERY DAY active Not Available Not Available No t Available methotrexat e sodium 2.5 mg tablet ONCE WEEKLY, TAKE 5 TABLETS BY MOUTH 2024 active Not Available Not Available Not Avai lable tamsulosin 0.4 mg capsule TAKE 1 CAPSULE (0.4 MG) BY ORAL ROUTE ONCE DAILY 1/2 HOUR FOLLOWING THE SAME MEAL EACH DAY 09/08 completed Not Available Not Available Not Available prednisone 2.5 mg tablet TAKE 3 TABS BY MOUTH DAILY X14 DAYS, THEN TAKE 2 TABS DAILY X14 DAYS, THEN TAKE 1 TAB DAILY X14 DAYS 12/11 completed Not Available Not Available Not Available cephalexin 500 mg capsule TAKE 1 CAPSULE BY MOUTH TWICE A DAY FOR 7 DAYS 09/08 completed Not Available Not Available Not Available lisinopril 10 mg tablet TAKE 1 TABLET BY MOUTH EVERYDAY AT BEDTIME active Not Available Not Available No t Available folic acid 1 mg tablet Take 1 tablet every day by oral route. 2024 active Not Available Not Available Not Avai lable diclofenac sodium 50 mg tablet,alok yed release TAKE 1 TABLET DAILY NEEDED FOR PAIN. PATIENT IS TO USE SPARINGLY 2024 active Not Available Not Available Not Avai lable nitrofurant oin monohydrate /macrocryst als 100 mg capsule TAKE 1 CAPSULE BY MOUTH TWICE A DAY FOR 7 DAYS 09/08 completed Not Available Not Available Not Available duloxetine 30 mg capsule,del ayed release TAKE 1 CAPSULE BY MOUTH EVERY MORNING active Not Available Not Available No t Available duloxetine 60 mg capsule,del ayed release TAKE 1 CAPSULE (60 MG) BY ORAL ROUTE ONCE DAILY AT BEDTIME active Not Available Not Available No t Available Vitals Date Recorded Body height Body mass index (BMI) Body weight Heart rate Oxygen saturation Oxygen saturation in Arterial blood by Pulse oximetry Pain severity - 0-10 verbal numeric rating [Score] - Reported Systolic blood pressure Diastolic blood pressure Provider Name and Address Organization Details Last Updated DateTime 4 185.42 cm 34.7 kg/m2 631681. 79 g 97 /min 96 % 96 % 8 144 mm[Hg] 90 mm[Hg] [facility] 4 16:28:01 Date Recorded Body height Body mass index (BMI) Body weight Heart rate Oxygen saturation Oxygen saturation in Arterial blood by Pulse oximetry Pain severity - 0-10 verbal numeric rating [Score] - Reported Systolic blood pressure Diastolic blood pressure Provider Name and Address Organization Details Last Updated DateTime 4 185.42 cm 34.3 kg/m2 896818. 02 g 87 /min 97 % 97 % 4 136 mm[Hg] 88 mm[Hg] [facility] 4 11:02:29 Date Recorded Body height Body mass index (BMI) Body weight Heart rate Oxygen saturation Oxygen saturation in Arterial blood by Pulse oximetry Pain severity - 0-10 verbal numeric rating [Score] - Reported Systolic blood pressure Diastolic blood pressure Provider Name and Address Organization Details Last Updated DateTime 5 185.42 cm 34.5 kg/m2 188207. 76 g 97 /min 96 % 96 % 0 140 mm[Hg] 82 mm[Hg] Chanelle Duke [facility] 5 12:07:17 Social History None recorded. Functional Status None recorded. Mental Status None recorded. Family History Relationship Description Onset Age of this Age Resolved Age Notes LastModified by Organization Details LastModified Time Father Malignant tumor of lung Not available 2023 16:29:23 Mother Malignant tumor of breast [email or web address] Not available 2023 16:29:34 Medical History No medical history recorded. Immunizations Vaccine Type Date Status Note Provider Nam e and Address Organization Details Recorded Time Influenza, split virus, quadrivalent, preservative 7 [facility]2023 16:28:16 Influenza, split virus, quadrivalent, preservative 6 [facility] 09/09/2023 16:28:16 Past Encounters Encounter ID Performer Location Encounter Start Date Encounter Closed Date Diagnosis/Indication Diagnosis SNOMED-CT Code Diagnosis ICD10 Code Diagnosis Note [id number] Kapil Ramirez MD [address] [facility] [place] [place] [address] [phone] 09/09/2023 15:46:58 09/19/2023 15:24:05 Multiple joint pain 51193134 M25.50 Osteoarthritis 944326500 M19.90 Low back pain 675374090 M54.50 C-reactive protein above reference range 4678961061 81463 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 4896498171 17873 Z79.1 Long-term current use of steroid 162206493 Z79.52 [id number] Kapil Ramirez MD [facility] [place]) [address] [place] [phone] 12/12/2023 10:21:06 12/17/2023 08:02:06 Multiple joint pain 25137300 M25.50 Seronegati ve rheumatoid arthritis 845187196 M06.00 Polymyalgi a rheumatica 21793642 M35.3 Mechanical low back pain 093782503 M54.50 Hyperuricemia 98292805 E 79.0 Long-term current use of steroid 795421414 Z79.52 [id number] Kapil Ramirez MD [facility] [place] [address] [facility] [place] Stone [address] 05/28/2024 11:57:14 05/30/2024 07:00:49 Seronegative rheumatoid arthritis 944624187 M06.00 Osteoarthritis 456463112 M19.90 Mechanical low back pain 108229235 M54.50 Hyperuricemia 70077397 E 79.0 Health Concerns Section Related Observation LastModified by Organization Detai ls LastModified Time None Recorded Concern Status LastModified by Organization Details LastModified Time None Recorded Advance Directives Directive None Recorded Payers Encounter Date Sequence Insurance Name Policy Number Policy Frazier Covered Member ID Frazier Member ID Guarantor Name 09/09/2023 2 MEDICAID[place]: [place] [employer] [facility] [id number] Odilon May 09/09/2023 1 [facility] (MEDICARE REPLACEMENT/A DVANTAGE - HMO) [id number] [facility] 12/12/2023 2 [place] Odilon May [id number] Odilon May 12/12/2023 1 [facility] (MEDICARE REPLACEMENT/A DVANTAGE - HMO) [id number] Odilon May [id number] Doilon May 05/28/2024 2 MEDICAID-ID: [facility] Odilon May [id number] Odilon May 05/28/2024 1 [facility] (MEDICARE REPLACEMENT/A DVANTAGE - HMO) [id number] [id number] Notes Date Note Type Note Provider Name and Address Organization Details Recorded Time 09/09/2023 text/html The patient is a 57-year-old white male, nonsmoker, nondrinker, with a history of hypertension, left ventricular hypertrophy with diastolic dysfunction, hyperlipidemia, peripheral vascular disease, GERD, hyperuricemia, degenerative cervical and lumbosacral spine disease, osteoarthritis, obstructive sleep apnea and prostate cancer status post prostatectomy in February 2023 without requiring any chemo or radiation therapy, who is seen today in consultation at the request of Dr. 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 The patient does have osteoarthritis and has undergone previous right total knee arthroplasty. He does perform all of his own ADLs. He does not require the use of an assistive device for ambulation. He has had no falls or fractures over the past year. He rates his overall pain at its worst an 8/10 on a scale. His morning stiffness is lasting less than 1 hour in duration. He currently continues on prednisone 10 mg daily, which he states he has taken for the past 5-6 years along with meloxicam. He states he really cannot tall any dramatic difference since being on the prednisone nor the meloxicam for that matter. He also takes duloxetine for the past couple of years for sensory peripheral neuropathy and generalized pain. He admits zsae-pac-fognpey he will use up to 1 g of Tylenol once to twice daily along with 200 mg to 400 mg of ibuprofen as needed.On review of systems, he has had no fevers, unexplained weight loss, skin rash, photosensitivity, aphthous ulcers, headache, tongue or jaw claudication, visual scatoma, Raynaud s symptoms, aphthous ulcers, sicca symptoms, neck swelling, lymph node swelling, cough, pleurisy, shortness of breath, chest pain or palpitations, GERD, melena or hematochezia, history of peptic ulcer disease or GI bleeding, loss of appetite, early satiety, renal calculi, glomerular nephritis, DVT or PE, cytopenia or seizures. He does have chronic numbness and tingling in his hands and feet.I did review his outside serologic workup from July 16, 2023, demonstrating a normal CBC, CMP and uric acid level. His C-reactive protein is modestly elevated at 1.13 mg/dL with an ENRIQUE of 1:40 in a mitotic/bridge pattern. Additional labs from last year do demonstrate that the CRP tends to vary somewhat. Around the time of his prostate surgery, he did have an E coli UTI and at that time his CRP went up significantly. He denies currently any dental issues, chronic sinus issues, cough or wheezing, or genitourinary complaints.I have reviewed the patient s past medical history and [employer] intake form.luis f Ramirez MD [address] [place] [address], [phone], [facility] 09/10/2023 21:35:37 12/12/2023 text/html The patient is a 58-year-old gentleman with polymyalgia rheumatica and osteoarthritis, as well as chronic mechanical lower back pain and hyperuricemia, who is here for a followup visit. The patient continues on allopurinol therapy along with low dose diclofenac. He remains prednisone dependent at 5 mg daily, but reports overall he is feeling much better. His ADLs are much easier. He does not require the use of an assistive device for ambulation. Currently he rates his pain level a 3-4/10 on a scale. His morning stiffness is lasting 10 minutes in duration. His workup from last visit revealed osteoarthritis of the hands and feet on x-rays, but his labs showed evidence of elevated acute phase reactants. Previous screens for RA have been negative. The patient denies any glaucoma. No GCA symptoms. He has had no fevers, unexplained weight loss, tongue or jaw claudication or visual scatoma, neck swelling, lymph node swelling, cough, pleurisy, shortness of breath, chest pain or palpitations, GERD, melena or hematochezia, diarrhea or constipation. His appetite is normal. Energy level has improved. He denies any renal calculi or gross hematuria.luis f Ramirez MD [address] [place] [address], [phone], [facility] 12/16/2023 22:41:49 05/28/2024 text/html The patient is a 58-year-old gentleman who is here for a followup visit at 6 months regarding his seronegative RA and osteoarthritis, reporting overall he is feeling tremendously better. He currently is experiencing 10-15 minutes of morning stiffness and no significant joint pain aside from some occasional aching in his knees with prolonged standing. This is better with rest and elevation of the legs within minutes. He denies any calf claudication. He has had no methotrexate associated postdosing headache, stomatitis, cough, wheezing, shortness of breath, fevers, chest pain or palpitations, GERD, melena or hematochezia, diarrhea or constipation. He is now down to 5 mg of prednisone daily and has not encountered any flares of his arthritis. He still takes his diclofenac 50 mg once daily in the evening to help control his morning stiffness. On further review, he has had no Raynaud s symptoms, dysuria or gross hematuria or bleeding from the nares or gums. His energy level is normal. Appetite is normal.antonio Ramirez MD [address] [place] [address], [phone], [facility] 05/29/2024 17:51:19
--- OUTSIDE RECORDS SUMMARY | 2024-09-10 13:10 | XMS_ITS | Clinical Summary ---
Author Organization [facility] Address [facility] [place] [address] Care Team Providers Care Supervisor Marble Name Role Phone Mikel Krueger MD Primary Care Provider [phone] Allergies Active Allergy Reactions Criticality Noted Date Comments Ezetimibe Myalgias High Reaction: myalgias, Statins Myalgias High Reaction: myalgias, Medications allopurinol 100 MG tablet Take 200 mg by mouth daily. 1 12/09/2018 Active furosemide 40 MG tablet Take 40 mg by mouth every morning. 0 11/28/2018 Active lisinopril 10 MG tablet Take 10 mg by mouth nightly at bedtime. 1 12/08/2018 Active omeprazole 40 MG capsule Take 40 mg by mouth nightly. Active predniSONE 5 mg tablet Take 5 mg by mouth daily. Active meloxicam 15 MG tablet Take 15 mg by mouth daily. 04/01/2019 Active duloxetine 30 MG capsule Take 30 mg by mouth 2 (two) times daily. Active Active Problems Problem Noted Date Diagnosed Date Strain of right knee, subsequent encounter 02/14 Rotator cuff arthropathy, left 08/03/2019 Resolved Problems Problem Noted Date Diagnosed Date Resolved Date Follow-up examination after orthopedic surgery 08/03/2019 01/29/2020 Aftercare following right kn ee joint replacement surgery 05/04/2019 08/03/2019 Status post right knee replacement 02/10/2019 05/04/2019 Osteoarthritis of right knee 02/09/2019 02/10/2019 Family History Medical History Relation Comments Cancer Father Cancer Mother Cancer Sister 1 Diabetes Sister 1 Diabetes Sister 2 throat cancer Sister 3 Relation Status Comments Father Mother Sister 1 Sister 2 Alive Sister 3 Alive Social History Tobacco Use Types Packs/Day Years Used Date Smoking Tobacco: Never Smokeless Tobacco: Never Alcohol Use Standard Drinks/Week Comments No 0 (1 standard drink = 0.6 oz pur e alcohol) AUDIT-C Answer Date Recorded Frequency of Alcohol Consumption Never 01/23/2019 Average Number of Drinks Not on file 019 Frequency of Binge Drinking Not on file 10/2018 Sex and Gender Information Value Date Recorded Sex Assigned at Not on file Legal Sex Male 4:48 PM CDT Gender Identity Not on file Sexual Orientation Not on file Last Filed Vital Signs Vital Sign Reading Time Taken Comments Blood Pressure 132/68 02/11/2019 3:00 AM CDT Pulse 78 02/11/2019 3:00 AM CDT Temperature 36.4 C (97.6 F) 02/11/2019 3:00 AM CDT Respiratory Rate 18 02/11/2019 3:00 AM CDT Oxygen Saturation 96% 02/11/2019 3:00 AM CDT Inhaled Oxygen Concentration - - Weight 109.3 kg (241 lb) 03/07/2021 10:22 AM CDT Height 177.8 cm (5' 10 ) 03/07/2021 10:22 AM CDT Body Mass Index 34.58 03/07/2021 10:22 AM CDT Plan of Treatment Health Maintenance Due Date Last Done Comments Colorectal Cancer Screening Colonoscopy (10 Years) 1963 Annual Physical 11/10/1966 Hepatitis C 11/10/1981 DTaP, Tdap and Td Vaccines ( 1 - Tdap) 11/10/1982 Pneumococcal Vaccine: 50+ Ye ars (1 of 1 - PCV) 11/10/2013 Zoster Vaccines (1 of 2) 11/10/2013 COVID-19 Vaccine (1 - 2023-2 5 season) 2024 RSV Immunization or 60+ Years (1 - 1-dose 75+ series) 11/10/2038 Meningococcal B Vaccine Aged Out No l onger eligible based on patient's age to complete this topic Meningococcal Vaccine Aged Out No sofie nikhil eligible based on patient's age to complete this topic RSV Immunizations Under 20 Months Aged Out No longer eligible based on patient's age to complete this topic Medical Devices Implanted Type Area Hearing Aid Repair Technician Device Identifier Shelf Expiration Date Model / Serial / Lot Cement Simplex Hv W/Gentamicin - [id number] Implanted:Qty: 1 on 02/09/2019 by Jelani De Leon MD at [facility] Right: Knee [employer] 02/17/2020 6195-1-010 / / [id number] Cement Simplex Hv W/Gentamicin - [id number] Implanted:Qty: 1 on 02/09/2019 by Jelani De Leon MD at [facility] Right: Knee [employer] 02/17/2020 6195-1-010 / / [id number] Attune Femoral Posterior Stabilized Size 6 Right Cemented Implanted:Qty: 1 on 02/09/2019 by Jelani De Leon MD at [facility] Right: Knee 11/16/2028 1504-03-08 6 / / [id number] Attune Knee System Tibial Base Rotating Platform Implanted:Qty: 1 on 02/09/2019 by Jelani De Leon MD at [facility] Right: Knee 07/17/2028 6 / / [id number] Attune Patella Medialized Dome Implanted:Qty: 1 on 02/09/2019 by Jelani De Leon MD at [facility] Right: Knee 04/18/2023 8 / / [id number] Attune Tibial Insert Rotating Platform Posterior Stabilized Implanted:Qty: 1 on 02/09/2019 by Jelani De Leon MD at [facility] Right: Knee 07/17/2021 0 / / [id number] Explanted Type Area Hearing Aid Repair Technician Device Identifier Shelf Expiration Date Model / Serial / Lot Drill Bit Synthes 2.5 Qc 110mm Gold - [id number] Explanted:Qty: 1 on 02/09/2019 at [facility] Right: Knee SYNTHES 310.25 / / Insurance Advance Directives * Full Code (Latest Code Status on File) Date Activated Date Inactivated Comments 02/09/2019 10:30 AM 02/11/2019 1:10 PM Care Teams Supervisor Marble Relationship Specialty Start Date End Date Mikel Krueger MD [address] [place] [address] PCP - General INTERNAL MEDICINE 01/23/19
--- OUTSIDE RECORDS SUMMARY | 2024-09-10 13:10 | XMS_ITS | Data Portability ---
Author Organization [facility] [employer], Main Office Address [address] [place] [address] Assessment No assessment recorded. Plan of Treatment Reminders Order Date Submit Date Provider Last Modified By Organization Details Last Modified Time Details Appointments None recorded . Lab None recorded . Referral None recorded . Procedures biopsy, prostate , needle (PROC) 023 10/25/19 23 [email or web address] Not available 3 10:34:46 Surgeries None recorded . Imaging None recorded . Medication Orders None recorded . Patient TargetsNo targets recorded. Patient InstructionsNo instructions recorded. Reason for Referral None Reported. Results Created Date Observation Date Name Description Value Unit Range Abnormal Flag Note LastModifiedBy Organization Detail LastModifiedTime 09/28/19 22 09/27/2021 urina lysis , dipst ick Leukocytes (reference range: negative karena/ l) Negati ve Not Available [facility], [address], [address], 09/27/2021 08:48:41 09/28/19 22 09/27/2021 urina lysis , dipst ick Nitrite (reference rage: negative mg/dl) negati ve Not Available [facility], [address], 09/27/2021 08:48:41 09/28/19 22 09/27/2021 urina lysis , dipst ick Urobilinogen (reference range: 0.2-1 mg/dl) 0.2 Not Available [facility]_[address], [address], 09/27/2021 08:48:41 09/28/19 22 09/27/2021 urina lysis , dipst ick Protein (reference range: negative mg/dl) Negati ve Not Available [address], [place] [address], [place], [address], 09/27/2021 08:48:41 09/28/19 22 09/27/2021 urina lysis , dipst ick pH (reference range: 5-7) 5.5 Not Available [address] [address], [place], [address], 09/27/2021 08:48:41 09/28/19 22 09/27/2021 urina lysis , dipst ick Blood (reference range: negative Evan/ l) Negati ve Not Available [address], [address], 09/27/2021 08:48:41 09/28/19 22 09/27/2021 urina lysis , dipst ick Specific [place] (reference range: 1.005-1.030) 1.030 Not Available [address] [address], [place], [address], 09/27/2021 08:48:41 09/28/19 22 09/27/2021 urina lysis , dipst ick Ketone (reference range: negative mg/dl) Negati ve Not Available [address], [address], 09/27/2021 08:48:41 09/28/19 22 09/27/2021 urina lysis , dipst ick Bilirubin (reference range: negative mg/dl) Negati ve Not Available [address], [address], 09/27/2021 08:48:41 09/28/19 22 09/27/2021 urina lysis , dipst ick Glucose (reference range: negative mg/dl) Negati ve Not Available [address], [address], 09/27/2021 08:48:41 09/28/19 22 09/27/2021 urina lysis , dipst ick Appearance Clear Not Available [address], [address], 09/27/2021 08:48:41 09/28/19 22 09/27/2021 urina lysis , dipst ick Color Yellow Not Available [address], [address], 09/27/2021 08:48:41 09/28/19 22 09/27/2021 US, bladd er No observ ation record ed. [id number], [address], 07/19/2022 01:01:20 10/26/19 23 10/24/2022 biops y, prost ate, needl e (PROC ) No observ ation record ed. [email or web address] Not Available 2022 11:11:32 Result Notes None recorded. Problems Name Problem SNOMED Code Status Onset Date Resolution Date Notes Provider Name and Address Organization Details Recorded Time Benign prostatic hyperplasia with outflow obstruction 794368006 Active 05/11/ 2022 Not Available [employer] 3 01:00:06 Prostate specific antigen above reference range 830942220 Active 2021 Not Available [facility] 3 01:00:06 Malignant tumor of prostate 066633646 Active 2021 Not Available [facility] 3 01:00:06 Carcinoma of prostate 355795835 Active 2022 Ana María franklin, [facility] [employer] [facility] 3 16:12:15 Benign prostatic hyperplasia 391398951 Active 2022 Wesley Sadler MD [address] [facility], [address] [address], [place], [address] , [employer] [facility] 3 12:28:03 Problem Notes None recorded. Procedures Surgical History Date Name Laterality Status Provider Name and Address Organization Details Recorded Time 10/25/19 23 Prostate Biopsy JTA completed Wesley Sadler MD [address] [address], [place], [address], [employer] 10/24/2022 12:25:57 wrist repair completed Not Available [facility] 07/19/2022 00:59:11 Knee Replacement completed Not Available [facility] hospital 07/19/2022 00:59:11 Imaging Results Imaging Date Name Status LastModified by Organiz ation Details LastModified Time 09/27/2021 US, bladder completed [id number] [facility] [place] [address] [facility], [address], [place], [address], 07/19/2022 01:01:20 10/24/2022 biopsy, prostate, needle (PROC) completed [email or web address] Information not available 10/25/2022 11:11:32 Procedure Notes None recorded. Medical Equipment None Reported. Allergies Allergen ID Allergen Name Allergen Category Reaction Reaction Severity Criticality Documentation Date Start Date Code Code System Note Provider Name and Address Organization Details Recorded Time 18901 Product containin g 3-hydroxy -3-methyl glutaryl- coenzyme A reductase inhibitor (product) medicatio n Not available Not available Not available 07/19/2022 18353 009 SNOMED Not Available [facility] 3 01:01:06 Medications Name Sig Start Date Stop Date Status Note LastModified by Organization Details LastModified Time furosemide 40 mg tablet TAKE 1 TABLET BY MOUTH EVERY DAY IN THE MORNING active Not Available Not Available No t Available meloxicam 15 mg tablet TAKE 1 TABLET BY MOUTH DAILY active Not Available Not Available No t Available prednisone 5 mg tablet TAKE 1 TABLET BY MOUTH DAILY active Not Available Not Available No t Available allopurinol 100 mg tablet TAKE 2 TABLETS BY MOUTH DAILY active Not Available Not Available No t Available omeprazole 40 mg capsule,del ayed release TAKE 1 CAPSULE BY MOUTH EVERY DAY active Not Available Not Available No t Available ceftriaxone 1 gram solution for injection Take 1 g by injection route. 10/24 completed Not Available Not Available Not Available tamsulosin 0.4 mg capsule TAKE 1 CAPSULE (0.4 MG) BY ORAL ROUTE ONCE DAILY 1/2 HOUR FOLLOWING THE SAME MEAL EACH DAY active Not Available Not Available No t Available lisinopril 10 mg tablet TAKE 1 TABLET BY MOUTH EVERYDAY AT BEDTIME active Not Available Not Available No t Available gentamicin 40 mg/mL injection solution Take 80 mg by injection route. 10/24 completed Not Available Not Available Not Available duloxetine 30 mg capsule,del ayed release TAKE 1 CAPSULE BY MOUTH TWICE A DAY active Not Available Not Available No t Available duloxetine 60 mg capsule,del ayed release TAKE 1 CAPSULE (60 MG) BY ORAL ROUTE ONCE DAILY AT BEDTIME active Not Available Not Available No t Available Vitals Date Recorded Body mass index (BMI) Body height Oxygen saturation Oxygen saturation in Arterial blood by Pulse oximetry Body temperature Body weight Provider Name and Address Organization Details Last Updated DateTime 2 33.5 kg/m2 185.42 cm 96 % 96 % 98.6 [degF] 717710. 46 g Not Available [facility] 3 00:59:23 Date Recorded Body mass index (BMI) Body height Oxygen saturation Oxygen saturation in Arterial blood by Pulse oximetry Body temperature Body weight Provider Name and Address Organization Details Last Updated DateTime 2 33.5 kg/m2 185.42 cm 95 % 95 % 98.4 [degF] 907931. 46 g Not Available [facility] 3 00:59:24 Date Recorded Body mass index (BMI) Body height Oxygen saturation Oxygen saturation in Arterial blood by Pulse oximetry Heart rate Body temperature Body weight Provider Name and Address Organization Details Last Updated DateTime 2 33.4 kg/m2 185.42 cm 99 % 99 % 91 /min 98.1 [degF] 893736. 87 g Not Available [facility] 3 00:59:24 Date Recorded Body height Provider Name an d Address Organization Details Last Updated DateTime 10/24/2022 185.42 cm Mago Valadez MA [facility] [employer] [facility] 10/24/2022 11:59:45 Date Recorded Body mass index (BMI) Body weight Body temperature Heart rate Provider Name and Address Organization Details Last Updated DateTime 10/24/2022 33.5 kg/m2 646631.46 g 98.4 [degF] 77 /min Williams Farrell Mariah [facility] [employer] [facility] 10/24/2022 12:11:58 Date Recorded Body height Body mass index (BMI) Body weight Heart rate Oxygen saturation Oxygen saturation in Arterial blood by Pulse oximetry Body temperature Provider Name and Address Organization Details Last Updated DateTime 3 185.42 cm 0.3 kg/m2 907.18 g 111 /min 99 % 99 % 97.9 [degF] Williams Farrell Mariah [place] [employer] [facility] [employer] [facility] 3 10:20:03 Social History Question Answer Notes LastModified by Organizat ion Details LastModified Time Tobacco Smoking Status Never Smoker Not Available [facility] 07/19/2022 00:58:23 What Is Your Level Of Alcohol Consumption? None [id number] Information not available 07/19/2022 What Is Your Level Of Caffeine Consumption? Moderate [id number] 026 Information not available 07/19/2022 What Was The Date Of Your Most Recent Tobacco Screening? 10/25/2021 [id number] Information not available 07/19/2022 Do You Use Any Illicit Or Recreational Drugs? No [id number] Information not available 07/19/2022 Has Tobacco Cessation Counseling Been Provided? No [id number] Information not available 07/19/2022 Do You Or Have You Ever Used Any Other Forms Of Tobacco Or Nicotine? No [id number] 026 Information not available 07/19/2022 Sex: Unknown Functional Status None recorded. Mental Status None recorded. Family History Relationship Description Onset Age of this Age Resolved Age Notes LastModified by Organization Details LastModified Time Unspecified Relation Diabetes mellitus [id number] Not available 07/19/2022 00:59:12 Unspecified Relation Heart disease [id number] Not available 07/19/2022 00:59:12 Unspecified Relation Hypertensive disorder MIGRATION.910 [id number] Not available 07/19/2022 00:59:12 Paternal Grandfather Malignant tumor of prostate MIGRATION.[id number] Not available 07/19/2022 00:59:12 Mother Malignant tumor of breast [id number].592 [id number] Not available 07/19/2022 00:59:12 Father Malignant tumor of lung [id number].127 [id number] Not available 07/19/2022 00:59:12 Medical History Condition Response ARTHRITIS Y HYPERTENSION Y Past Encounters Encounter ID Performer Location Encounter Start Date Encounter Closed Date Diagnosis/Indication Diagnosis SNOMED-CT Code Diagnosis ICD10 Code Diagnosis Note [id number] [facility] [address] [address] 09/27/2021 00:00:00 09/27/2021 10:07:34 [id number] [facility] [address] [address] 10/11/2021 00:00:00 10/11/2021 10:59:41 [id number] [facility] [address] [address] 10/25/2021 00:00:00 10/25/2021 13:07:48 [id number] [facility] [address] [place] [address] 04/25/2022 00:00:00 04/25/2022 13:07:17 [id number] Wesley Sadler MD [facility] [address] [place] [address] 10/24/2022 11:54:17 10/24/2022 12:34:53 Malignant tumor of prostate [id number] C61 :10/11/2021 TRUSBx - GS 6, 5/12, 90%, all on the ZYHRRgK4t, 22cc, no median lobe, PSA 4.2 -PERTINENT IMAGING: None------ ------:-Th is patient has a diagnosis of LOW risk prostate cancer. Based on his available clinical informatio n, it appears his malignancy is localized, leaving him with some options in his management . -We highlightpenny kang in our discussion the difference between his [facility] Pre-Prosta tectomy Nomogram his 99% 15y CSS vs. 90% 10y PFS -We discussed all of the options as well as their associated risks and benefits in detail in the office today. We focused on Active Surveillan ce, Surgical Treatment, Radiation Treatment, Androgen Deprivatio n Therapy, and Withholdin g Interventi on. At the end of the clinical encounter, we decided on Active Surveillan ce. PLAN:-Pros rodriguez biopsy today (10/24/2022 TRUSBx - 22cc, no nodules, no median lobe, PSA 5.5)-RTC 4-5 weeks for path review [id number] Wesley Sadler MD [facility] [address] [address] [place] [address] 12/12/2022 10:11:21 12/12/2022 10:49:52 Malignant tumor of prostate [id number] C61 :10/11/2021 TRUSBx - GS 6, 5/12, 90%, all on the ILXMZuX9j, 22cc, no median lobe, PSA 4.2 10/24/2022 TRUSBx - GS 3+4=7, 5/12 cores, all on the RIGHT, 80%cT1c, no median lobe, 22cc gland, PSA 5.5 -PERTINENT IMAGING: None------ ------:-Th is patient has a diagnosis of INTERMEDIA TE risk prostate cancer. Based on his available clinical informatio n, it appears his malignancy is localized, leaving him with some options in his management .. -We highlighte d in our discussion the difference between his [facility] Pre-Prosta tectomy Nomogram his 98% 15y CSS vs. 72% 10y PFS; 4% LNI -We discussed all of the options as well as their associated risks and benefits in detail in the office today. We focused on Active Surveillan ce, Surgical Treatment, Radiation Treatment, Androgen Deprivatio n Therapy, and Withholdin g Interventi on. At the end of the clinical encounter, he is leaning towards surgery -- but will discuss this further with Dr. Galindo in [facility]. Due to lack of services for Radical Prostatect geri and Radiation at [place], and given patient's fixed income and need for in-network services, he is amenable to referral to [facility] for further counseling regarding treatment options We will see him back as needed, but am happy to perform post-treat ment surveillan ce I spent 45 minutes on this encounter including chart review, counseling , and documentat ion. Health Concerns Section Related Observation LastModified by Organization Detai ls LastModified Time None Recorded Concern Status LastModified by Organization Details LastModified Time None Recorded Advance Directives Directive None Recorded Payers Encounter Date Sequence Insurance Name Policy Number Policy Frazier Covered Member ID Frazier Member ID Guarantor Name 10/24/2022 1 [employer] (MEDICARE REPLACEMENT/[place]) [id number] Odilon Fraseroth [id number] Odilon Barakat May 10/24/2022 2 [place] Odilon E May [id number] Odilon Barakat May 12/12/2022 1 [employer] (MEDICARE REPLACEMENT/A DVANTAGE - [id number] Odilon Fraseroth [id number] Odilon E May 12/12/2022 2 [place] Odilon Barakat May [id number] Odilon May Notes Date Note Type Note Provider Name and Address Organization Details Recorded Time 10/24/2022 text/html :ORIGINAL HPI 09/27/2021 - Patient presents (with his daughter) for evaluation of elevated PSA. He was seen by Dr. Krzysztof Bridges in [place], [place], was advised to get a prostate biopsy, but due to being out of network and on a fixed income, has sought this service elsewhere. -INITIAL DIAGNOSIS: 10/11/2021 TRUSBx - GS 6, 5, 90%, all on the ZORBAyF8x, 22cc, no median lobe, PSA 4.2 -PERTINENT IMAGING: None -PSA TREND:10/2022 - 5.512/2021 - 5.365 - 4.222/2021 - 6. -PRIOR BIOPSY: denies -FAMILY HISTORY OF PROSTATE CANCER: maternal grandfather; breast cancer (mother); lung cancer (father) -LOWER URINARY TRACT SYMPTOMS: Yes, on Tamsulosin -ISSUES WITH ERECTILE DYSFUNCTION: did not discuss -PRIOR ABDOMINAL OPERATIONS: Denies -COMPETING COMORBIDITIES (DM, HTN, CAD, Stroke, COPD, etc): -BLOOD THINNERS: NSAIDS UA: negative for blood or infectionPVR: 50ccIPSS/QOL: 04/20 (5 Freq; 2's IE, weak, noct) -- on Lasix INTERVAL HISTORY:10/25/2021 - Patient presents with his daughter in follow up to review next steps in management since his biopsy showed low risk prostate cancer, as above 10/24/2021 - Presents in follow up for surveillance biopsy, and a PSA stable as above Wesley Sadler MD [address] [place] [address], [place], [address], [place] [facility] [employer] 10/24/2022 12:27:14 12/12/2022 text/html :ORIGINAL HPI 09/27/2021 - Patient presents (with his daughter) for evaluation of elevated PSA. He was seen by Dr. Krzysztof Bridges in [place], [place], was advised to get a prostate biopsy, but due to being out of network and on a fixed income, has sought this service elsewhere. -INITIAL DIAGNOSIS:10/11/2021 TRUSBx - GS 6, 5/, 90%, all on the UYYQXkC5m, 22cc, no median lobe, PSA 4.2 10/24/2022 TRUSBx - GS 3+4=7, 5/12 cores, all on the RIGHT, 80%cT1c, no median lobe, 22cc gland, PSA 5.5 -PERTINENT IMAGING: None -PSA TREND:10/2022 - 5.512 - 5.365 - 4.222/2021 - 6.22 -PRIOR BIOPSY: denies -FAMILY HISTORY OF PROSTATE CANCER: maternal grandfather; breast cancer (mother); lung cancer (father) -LOWER URINARY TRACT SYMPTOMS: Yes, on Tamsulosin -ISSUES WITH ERECTILE DYSFUNCTION: did not discuss -PRIOR ABDOMINAL OPERATIONS: Denies -COMPETING COMORBIDITIES (DM, HTN, CAD, Stroke, COPD, etc): -BLOOD THINNERS: NSAIDS UA: negative for blood or infectionPVR: 50ccIPSS/QOL: 04/20 (5 Freq; 2's IE, weak, noct) -- on Lasix INTERVAL HISTORY:10/25/2021 - Patient presents with his daughter in follow up to review next steps in management since his biopsy showed low risk prostate cancer, as above 10/24/2021 - Presents in follow up for surveillance biopsy, and a PSA stable as above 10/24/2022 TRUSBx - GS 3+4=7, 5/12 cores, all on the RIGHT, 80%cT1c, no median lobe, 22cc gland, PSA 5.5 I called patient and discussed path progression -- due to lack of services for Radical Prostatectomy and Radiation at [place], and given patient's fixed income and need for in-network services, he is amenable to referral to [facility] for further counseling regarding treatment options. We will make that referral, and he will keep his December 12 follow up with use to ensure things are moving forward. 12/12/2022 - Patient presents in follow up after referral to [facility] for eval/managment of prostate cancer -- he reports his appt got rescheduled, so now meets with Dr. Galindo 01/05/2023 -- here to discuss RALP vs IMRT with his daughter Wesley Sadler MD [address] [place] [address], [facility] [address], [place], [address], [place] [facility] [employer] 12/12/2022 10:53:29
== END 2024-09-10 11:39 | disposition home or self-care (01) ==
LOC: CHSLAB 11:44
PROVIDERS: PCP Internal Medicine; Visit Provider Internal Medicine
DX: R05.9 Cough, unspecified (principal); I10 Essential (primary) hypertension; M10.9 Gout, unspecified; M06.9 Rheumatoid arthritis, unspecified; Z12.5 Encounter for screening for malignant neoplasm of prostate
CPT/HCPCS: 36415; 71046; 80053; 80061; 81001; 84153; 84443; 84550; 85027; G0103

== ENCOUNTER 2024-09-15 11:02 | Outpatient (CLI) | payer MEDICARE, SELFPAY ==
[2024-09-15 11:19] LABS: Add Urine Microscopic? YES; Appearance Urine Clear (Clear); Bilirubin Urine Negative (Negative); Blood Urine Negative (Negative); Color Urine Light Yellow (Yellow); Glucose Urine UA Negative (Negative); Ketones Urine Negative (Negative); Leukocyte Esterase Ur 2+ (Negative); Nitrate Urine Positive (Negative); Protein Urine Negative (Negative); pH Urine 6.5 (5.0-8.0)
[2024-09-15 11:30] LABS: Bacteria Urine 4+ /hpf; Squamous Epithelial Cell Urine Rare /hpf (Few)
--- OUTSIDE RECORDS SUMMARY | 2024-09-15 12:33 | XMS_ITS | Clinical Summary ---
Author Organization [facility] Address [address] [place] [address] Care Team Providers Care Sanitor Name Role Phone Mikel Krueger MD Primary Care Provider [phone] Allergies Active Allergy Reactions Criticality Noted Date Comments Ezetimibe Muscle pain High Reaction: myalgias, Gxgjlii-Gwd-Efb Reductase Inhibitors Muscle pain High Reaction: myalgias, [...] 01/1990 L wrist cartila ge tear; Comments: [facility] this injury has had multiple procedures: 3 [...] -throat ; Diabetes Sister 3 Qian Diabetes [facility]; Relation Name Status Comments Daughter Lyssa Father [...] on file Legal Sex Male 12:50 AM TIN DIPPER Gender Identity Not on file Sexual Orientation Not on file Obstetrics History Last Filed Vital Signs Vital Sign Reading Time Taken Comments Blood Pressure 155/94 07/25/2018 8:36 AM TIN DIPPER Pulse 106 07/25/2018 8:36 AM TIN DIPPER Temperature - - Respiratory Rate - - Oxygen Saturation - - Inhaled Oxygen Concentration - - Weight 118.8 kg (262 lb) 07/25/2018 8:36 AM TIN DIPPER Height 185.4 cm (6' 1 ) 07/25/2018 8:36 AM TIN DIPPER Body Mass Index 34.57 07/25/2018 8:36 AM TIN DIPPER Plan of Treatment Not on file Insurance MEDICARE ADVANTAGE [facility] MEDIC[facility] Address: [address] [address] [place] [address] Care Teams Sanitor Relationship Specialty Start Date End Date Mikel Kruegre MD [facility] - General 07/06/16
--- OUTSIDE RECORDS SUMMARY | 2024-09-15 12:33 | XMS_ITS | Clinical Summary ---
Author Organization [facility] Address [address] [place] [address] Phone Care Team Providers Care Medical Research Tech Name Role Phone Mikel Krueger MD Primary Care Provider [phone] Allergies Active Allergy Reactions Criticality Noted Date [...] on file Legal Sex Male 8:22 AM DENTAL SURGERY DOCTOR Gender Identity Not on file Sexual Orientation Not on file Last Filed Vital Signs Vital Sign Reading Time Taken Comments Blood Pressure 122/82 07/03/2021 9:10 AM DENTAL SURGERY DOCTOR Pulse 102 07/03/2021 9:10 AM DENTAL SURGERY DOCTOR Temperature 36.4 C (97.6 F) 07/03/2021 9:10 AM DENTAL SURGERY DOCTOR Respiratory Rate 20 07/03/2021 9:10 AM DENTAL SURGERY DOCTOR Oxygen Saturation 97% 07/03/2021 9:10 AM DENTAL SURGERY DOCTOR Inhaled Oxygen Concentration - - Weight 115.3 kg (254 lb 3.2 oz) 07/03/2021 9:10 AM DENTAL SURGERY DOCTOR Height 185.4 cm (6' 1 ) 07/03/2021 9:10 AM DENTAL SURGERY DOCTOR Body Mass Index 33.54 07/03/2021 9:10 AM DENTAL SURGERY DOCTOR Plan of Treatment Health Maintenance Due Date [...] Comments PSA SCREEN Routine 07/03/2021 10:28 AM DENTAL SURGERY DOCTOR Elevated PSA from Last 3 Months or Most Recently Relevant to Health Maintenance Results * (ABNORMAL) PSA SCREEN (07/03/2021 10:28 AM DENTAL SURGERY DOCTOR) PSA SCREEN, TOTAL 6.22(H) <=4.00 ng/mL 07/03/2021 12:02 PM DENTAL SURGERY DOCTOR [facility] Blood Venipuncture / Unknown 07/03/2021 10:28 AM DENTAL SURGERY DOCTOR 07/03/2021 10:51 AM DENTAL SURGERY DOCTOR Narrative [facility] - 07/03/2021 12:02 PM DENTAL SURGERY DOCTOR PSA NOTE: The PSA value should be used in conjunction with information available from clinical evaluation and other diagnostic procedures. us Elias Bridges MD CHEMISTRY ORDERABLES Final Result [facility] [address] [place] [address] from Last 3 Months or Most Recently Relevant to Health Maintenance Insurance [facility] Advance Directives Documents on File Type Date Recorded Patient Relay Shop Tester Expl anation Other Advance Directive 07/05/2021 3:54 PM PSA LAB RESULTS Care Teams Medical Research Tech Relationship Specialty Start Date End Date Mikel Krueger MD [address] [place] [address] PCP - General Internal Medicine 06/02/21
--- OUTSIDE RECORDS SUMMARY | 2024-09-15 12:33 | XMS_ITS | Referral Summary ---
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 Gender Identity Not on file Sexual Orientation Not on file Last Filed Vital Signs Vital Sign Reading Time Taken Comments Blood Pressure 155/94 07/25/2018 8:36 AM MARKETING SERVICES VICE PRESIDENT Pulse 106 07/25/2018 8:36 AM MARKETING SERVICES VICE PRESIDENT Temperature - - Respiratory Rate - - Oxygen Saturation - - Inhaled Oxygen Concentration - - Weight 118.8 kg (262 lb) 07/25/2018 8:36 AM MARKETING SERVICES VICE PRESIDENT Height 185.4 cm (6' 1 ) 07/25/2018 8:36 AM MARKETING SERVICES VICE PRESIDENT Body Mass Index 34.57 07/25/2018 8:36 AM MARKETING SERVICES VICE PRESIDENT Plan of Treatment Not on file Insurance [place] [address] Care Teams Recruiter Manager Relationship Specialty Start Date End Date Mikel Krueger MD PCP - General 07/06/16
--- OUTSIDE RECORDS SUMMARY | 2024-09-15 12:33 | XMS_ITS | Data Portability ---
Author Organization [facility], Main Office Address [address] [place] [address] Assessment No assessment recorded. Plan of Treatment [...] negative karena/ l) Negati ve Not Available [facility], [address], [address], 09/27/2021 08:48:41 09/28/19 22 09/27/2021 urina lysis , dipst ick Nitrite (reference rage: negative mg/dl) negati ve Not Available [facility], [address], 09/27/2021 08:48:41 09/28/19 22 09/27/2021 urina lysis , dipst ick Urobilinogen (reference range: 0.2-1 mg/dl) 0.2 Not Available [facility]_[address], [address], 09/27/2021 08:48:41 09/28/19 22 09/27/2021 urina lysis , dipst ick Protein (reference range: negative mg/dl) Negati ve Not Available [address], [place] [address], [place], [address], 09/27/2021 08:48:41 09/28/19 22 09/27/2021 urina lysis , dipst ick pH (reference range: 5-7) 5.5 Not Available [address] [address], [place], [address], 09/27/2021 08:48:41 09/28/19 22 09/27/2021 urina lysis , dipst ick Blood (reference range: negative Evan/ l) Negati ve Not Available [address], [address], 09/27/2021 08:48:41 09/28/19 22 09/27/2021 urina lysis , dipst ick Specific [place] (reference range: 1.005-1.030) 1.030 Not Available [address] [address], [place], [address], 09/27/2021 08:48:41 09/28/19 22 09/27/2021 urina lysis , dipst ick Ketone (reference range: negative mg/dl) Negati ve Not Available [address], [address], 09/27/2021 08:48:41 09/28/19 22 09/27/2021 urina lysis , dipst ick Bilirubin (reference range: negative mg/dl) Negati ve Not Available [address], [address], 09/27/2021 08:48:41 09/28/19 22 09/27/2021 urina lysis , dipst ick Glucose (reference range: negative mg/dl) Negati ve Not Available [address], [address], 09/27/2021 08:48:41 09/28/19 22 09/27/2021 urina lysis , dipst ick Appearance Clear Not Available [address], [address], 09/27/2021 08:48:41 09/28/19 22 09/27/2021 urina lysis , dipst ick Color Yellow Not Available [address], [address], 09/27/2021 08:48:41 09/28/19 22 09/27/2021 US, bladd er No observ ation record ed. [id number], [address], 07/19/2022 01:01:20 10/26/19 23 10/24/2022 biops y, prost ate, needl e (PROC ) No observ ation record ed. [email or web address] Not Available 2022 11:11:32 Result Notes None recorded. Problems Name Problem SNOMED Code Status Onset Date Resolution Date Notes Provider Name and Address Organization Details Recorded Time Benign prostatic hyperplasia with outflow obstruction 267228525 Active 05/11/ 2022 Not Available [facility] 3 01:00:06 Prostate specific antigen above reference range 885972671 Active 2021 Not Available [facility] 3 01:00:06 Malignant neoplasm of prostate 971126276 Active 2021 Not Available [facility] 3 01:00:06 Carcinoma of prostate 039367111 Active 2022 Ana María franklin, [facility] [employer] [facility] 3 16:12:15 Benign prostatic hyperplasia 568360289 Active 2022 Wesley Sadler MD [address] [facility], [address] [address], [place], [address] , [employer] [facility] 3 12:28:03 Problem Notes None recorded. Procedures Surgical History Date Name Laterality Status Provider Name and Address Organization Details Recorded Time 10/25/19 23 Prostate Biopsy JTA completed Wesley Sadler MD [address] [address], [place], [address], [employer] 10/24/2022 12:25:57 wrist repair completed Not Available [facility] 07/19/2022 00:59:11 Knee Replacement completed Not Available [facility] 07/19/2022 00:59:11 Imaging Results Imaging Date Name Status LastModified by Organiz ation Details LastModified Time 09/27/2021 US, bladder completed [id number] [facility] [address] [facility], [address], [place], [address], 07/19/2022 01:01:20 10/24/2022 biopsy, prostate, needle (PROC) completed [email or web address] Information not available 10/25/2022 11:11:32 Procedure Notes None recorded. Medical Equipment None Reported. Allergies Allergen ID Allergen Name Allergen Category Reaction Reaction Severity Criticality Documentation Date Start Date Code Code System Note Provider Name and Address Organization Details Recorded Time 99230 Product containin g 3-hydroxy -3-methyl glutaryl- coenzyme A reductase inhibitor (product) medicatio n Not available Not available Not available 07/19/2022 79158 009 SNOMED Not Available [facility] 3 01:01:06 Medications Name Sig Start Date [...] cm 96 % 96 % 98.6 [degF] 755963. 46 g Not Available [facility] 3 00:59:23 Date Recorded Body mass index (BMI) Body height Oxygen saturation Oxygen saturation in Arterial blood by Pulse oximetry Body temperature Body weight Provider Name and Address Organization Details Last Updated DateTime 2 33.5 kg/m2 185.42 cm 95 % 95 % 98.4 [degF] 851858. 46 g Not Available [facility] 3 00:59:24 Date Recorded Body mass index (BMI) Body height Oxygen saturation Oxygen saturation in Arterial blood by Pulse oximetry Heart rate Body temperature Body weight Provider Name and Address Organization Details Last Updated DateTime 2 33.4 kg/m2 185.42 cm 99 % 99 % 91 /min 98.1 [degF] 970952. 87 g Not Available [facility] 3 00:59:24 Date Recorded Body height Provider Name an d Address Organization Details Last Updated DateTime 10/24/2022 185.42 cm Mago Valadez MA [facility] [employer] [facility] 10/24/2022 11:59:45 Date Recorded Body mass index (BMI) Body weight Body temperature Heart rate Provider Name and Address Organization Details Last Updated DateTime 10/24/2022 33.5 kg/m2 672335.46 g 98.4 [degF] 77 /min Williams Farrell Mariah [facility] [employer] [facility] 10/24/2022 12:11:58 Date Recorded Body height Body mass index (BMI) Body weight Heart rate Oxygen saturation Oxygen saturation in Arterial blood by Pulse oximetry Body temperature Provider Name and Address Organization Details Last Updated DateTime 3 185.42 cm 0.3 kg/m2 907.18 g 111 /min 99 % 99 % 97.9 [degF] Williams Farrell Mariah [employer] [facility] [employer] [facility] 3 10:20:03 Social History Question Answer Notes LastModified by Organizat ion Details LastModified Time Tobacco Smoking Status Never Smoker Not Available [facility] 07/19/2022 00:58:23 What Is Your Level Of Alcohol Consumption? None [id number] Information not available 07/19/2022 What Is Your Level Of Caffeine Consumption? Moderate [id number] Information not available 07/19/2022 What Was The Date Of Your Most Recent Tobacco Screening? 10/25/2021 [id number] Information not available 07/19/2022 Do You Use Any Illicit Or Recreational Drugs? No [id number] Information not available 07/19/2022 Has Tobacco Cessation Counseling Been Provided? No [id number] Information not available 07/19/2022 Do You Or Have You Ever Used Any Other Forms Of Tobacco Or Nicotine? No [id number] Information not available 07/19/2022 Sex: Unknown Functional Status None recorded. Mental Status None recorded. Family History Relationship Description Onset Age of this Age Resolved Age Notes LastModified by Organization Details LastModified Time Unspecified Relation Diabetes mellitus [id number] Not available 07/19/2022 00:59:12 Unspecified Relation Heart disease [id number].018 [id number] Not available 07/19/2022 00:59:12 Unspecified Relation Hypertensive disorder MIGRATION.502 [id number] Not available 07/19/2022 00:59:12 Paternal Grandfather Malignant neoplasm of prostate MIGRATION.723 [id number] Not available 07/19/2022 00:59:12 Mother Malignant tumor of breast MIGRATION.029 [id number] Not available 07/19/2022 00:59:12 Father Malignant neoplasm of lung MIGRATION.819 [id number] Not available 07/19/2022 00:59:12 Medical History Condition Response ARTHRITIS Y HYPERTENSION Y Past Encounters Encounter ID Performer Location Encounter Start Date Encounter Closed Date Diagnosis/Indication Diagnosis SNOMED-CT Code Diagnosis ICD10 Code Diagnosis Note [id number] [facility] [address] [address] 09/27/2021 00:00:00 09/27/2021 10:07:34 [id number] [facility] [address] [address] 10/11/2021 00:00:00 10/11/2021 10:59:41 [id number] [facility] [address] [address] 10/25/2021 00:00:00 10/25/2021 13:07:48 [id number] [facility] [address] [place] [address] 04/25/2022 00:00:00 04/25/2022 13:07:17 [id number] Wesley Sadler MD [facility] [address] [place] [address] 10/24/2022 11:54:17 10/24/2022 12:34:53 Malignant neoplasm of prostate 923092196 C61 :10/11/2021 TRUSBx - GS 6, 5/12, 90%, all on the JXISQnG3t, 22cc, no median lobe, PSA 4.2 -PERTINENT IMAGING: None------ ------:-Th is patient has a diagnosis of LOW risk prostate cancer. Based on his available clinical informatio n, it appears his malignancy is localized, leaving him with some options in his management . -We highlightpenny kang in our discussion the difference between his [facility] Pre-Prosta tectomy Nomogram his 99% 13y CSS [...] PSA 5.5)-RTC 4-5 weeks for path review [id number] Wesley Sadler MD [facility] [address] [address] [place] [address] 12/12/2022 10:11:21 12/12/2022 10:49:52 Malignant neoplasm of prostate 442763778 C61 :10/11/2021 TRUSBx - GS 6, 5/12, 90%, all on the [id number], 22cc, no median lobe, PSA 4.2 10/24/2022 [...] in our discussion the difference between his [facility] Pre-Prosta tectomy Nomogram his 98% 13y CSS [...] discuss this further with Dr. Galindo in [facility]. Due to lack of services for Radical Prostatect geri and Radiation at [place], and given patient's fixed income and need for in-network services, he is amenable to referral to [facility] for further counseling regarding treatment options [...] REPLACEMENT/A DVANTAGE - PPO) [id number] Odilon Fraseroth [id number] Odilon Barakat May 10/24/2022 2 [place] Odilon E May [id number] Odilon Barakat May 12/12/2022 1 [employer] (MEDICARE REPLACEMENT/A DVANTAGE - PPO) [id number] Odilon Fraseroth [id number] Odilon E May 12/12/2022 2 [place] Odilon Barakat May [id number] Odilon May Notes Date Note Type Note Provider Name and Address Organization Details Recorded Time 10/24/2022 text/html :ORIGINAL HPI 09/27/2021 - Patient presents (with his daughter) for evaluation of elevated PSA. He was seen by Dr. Krzysztof Bridges in [place], [place], was advised to get a prostate biopsy, but due to being out of network and on a fixed income, has sought this service elsewhere. -INITIAL DIAGNOSIS: 10/11/2021 TRUSBx - GS 6, 5, 90%, all on the SSEIHsY0v, 22cc, no median lobe, PSA 4.2 -PERTINENT [...] PSA stable as above Wesley Sadler MD [address] [place] [address], [place], [address], [place] [facility] [employer] 10/24/2022 12:27:14 12/12/2022 text/html :ORIGINAL HPI 09/27/2021 - Patient presents (with his daughter) for evaluation of elevated PSA. He was seen by Dr. Krzysztof Bridges in [place], [place], was advised to get a prostate biopsy, but due to being out of network and on a fixed income, has sought this service elsewhere. -INITIAL DIAGNOSIS:10/11/2021 TRUSBx - GS 6, 5/, 90%, all on the JDZJMeG3e, 22cc, no median lobe, PSA 4.2 10/24/2022 [...] services for Radical Prostatectomy and Radiation at [facility], and given patient's fixed income and need [...] IMRT with his daughter Wesley Sadler MD [address] [place] [address], [facility] [address], [place], [address], [place] [facility] [employer] 12/12/2022 10:53:29
--- OUTSIDE RECORDS SUMMARY | 2024-09-15 12:33 | XMS_ITS | Data Portability ---
Author Organization [facility], [address] [place] [address] ([place]) Address [address] [place] [address] Care Team Providers Care Olericulturist Name Role Phone NEL CARLSON Primary Care Provider Assessment Encounter Date Assessment Date Assessment LastModified [...] C3 and C4 complement levels, anti-Urena and COMMERCIAL JOURNEY[employer] ELECT[employer]ICIAN antibodies, hhby-vfhvpv-pdbfkk ed DNA antibody level, arthritis panel, CBC, [...] on this date of service including both oaxp-tn-fuij and dio-bbfr-nw-face time excluding any separately reportable services. nv Not available 09/10/2023 08:52:58 12/12/2023 12/12/2023 IMPRESSION: 1. PMR versus seronegative RA. 2. Osteoarthritis. 3. Visual blurring, likely related to steroid therapy. PLAN: 1. 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 2. Increase prednisone to 10 mg daily. [...] available Not available Lab CBC 2023 024 [email or web address] [facility], [address] [place] [address], [address], 05/21/2024 15:57:20 CMP, serum or plasma 2023 024 [email or web address] [facility], [address] [place] [address], [id number], 05/21/2024 15:57:20 ESR (erythroc yte sedimenta tion rate), blood 2023 024 [email or web address] [facility], [address] [place] [address], [id number], 05/21/2024 15:57:20 unlisted lab - CRP ([facility] only) 2023 024 [email or web address] [facility], [address] [place] [address], [id number], 05/21/2024 15:57:21 CBC 2023 024 [facility], [address] [place] [address], 75014, 05/21/2024 15:57:28 CMP, serum or plasma 2023 024 [email or web address] [facility], [address] [place] [address], 05266, 05/21/2024 15:57:28 ESR (erythroc yte sedimenta tion rate), blood 2023 024 [email or web address] [facility], [address] [place] [address], 83789, 05/21/2024 15:57:28 unlisted lab - CRP ([facility] only) 2023 024 [email or web address] [facility], [address] [place] [address], 36099, 05/21/2024 15:57:29 Referral None recorded. Procedures None recorded. Surgeries None recorded. Imaging None recorded. Medication Orders methotrex ate sodium 2.5 mg tablet 2023 024 [facility] #[id number], [address] [place], [address], 12/12/2023 22:08:38 folic acid 1 mg tablet 2023 024 [id number], [address] [place], [address], 12/12/2023 22:08:38 Patient TargetsNo targets recorded. Patient InstructionsNo instructions recorded. Reason for Referral None Reported. Results Created Date Observation Date Name Description Value Unit Range Abnormal Flag Note LastModifiedBy Organization Detail LastModifiedTime 09/09/19 24 09/09/2023 CBC CBC Not Available [facility] [address] [place] [address], [id number], 09/09/2023 18:51:33 09/09/19 24 09/09/2023 CBC WBC 7.9 K/uL 4.8- 10.8 Not Available [facility] [address] [place] [address], 03949, 09/09/2023 18:51:33 09/09/19 24 09/09/2023 CBC RBC 4.65 M/uL 4.70-6 .10 low Not Available [facility] [address] [place] [address], 76658, 09/09/2023 18:51:33 09/09/19 24 09/09/2023 CBC HGB 14.1 g/dL 14.0-1 8.0 Not Available [facility] [address] [place] [address], 64933, 09/09/2023 18:51:33 09/09/19 24 09/09/2023 CBC HCT 42.4 % 42.0-5 2.0 Not Available [facility] [address] [place] [address], 99308, 09/09/2023 18:51:33 09/09/19 24 09/09/2023 CBC MCV 91.2 fL 80.0-9 4.0 Not Available [facility] [address] [place] [address], 95399, 09/09/2023 18:51:33 09/09/19 24 09/09/2023 CBC MCH 30.3 pg 27.0- 31.0 Not Available [facility] [address] [place] [address], 07691, 09/09/2023 18:51:33 09/09/19 24 09/09/2023 CBC MCHC 33.3 g/dL 32.0-3 6.0 Not Available [facility] [address] [place] [address], 09133, 09/09/2023 18:51:33 09/09/19 24 09/09/2023 CBC RDW-SD 48.1 fL 35.1 - 46.3 high Not Available [facility] [address] [place] [address], 82531, 09/09/2023 18:51:33 09/09/19 24 09/09/2023 CBC plt 384 K/uL 130-40 0 Not Available [facility] [address] [place] [address], 00882, 09/09/2023 18:51:33 09/09/19 24 09/09/2023 CBC MPV 9.7 fL 7.5- 11.8 Not Available [facility] [address] [place] [address], 71827, 09/09/2023 18:51:33 09/09/19 24 09/09/2023 ESR (eryt hrocy te sedim entat ion rate) , blood sed rate 49 mm/HR 0 - 20 high Not Available [facility] [address] [place] [address], 65960, 09/09/2023 19:15:35 09/09/19 24 09/09/2023 CMP, serum or plasm a comp. met. panel Not Available [facility] [address] [place] [address], 54287, 09/09/2023 19:42:14 09/09/19 24 09/09/2023 CMP, serum or plasm a sodium 139 mmol/ L 136-14 6 Not Available [facility] [address] [place] [address], 01122, 09/09/2023 19:42:14 09/09/19 24 09/09/2023 CMP, serum or plasm a potassium 4.5 mmol/ L 3.5-5. 1 Not Available [facility] [address] [place] [address], 43039, 09/09/2023 19:42:14 09/09/19 24 09/09/2023 CMP, serum or plasm a chloride 104 mmol/ L 98-110 Not Available [facility] [address] [place] [address], 47630, 09/09/2023 19:42:14 09/09/19 24 09/09/2023 CMP, serum or plasm a CO2 26 mEq/L 20-32 Not Available [facility] [address] [place] [address], 00887, 09/09/2023 19:42:14 09/09/19 24 09/09/2023 CMP, serum or plasm a anion gap 14 mmol/ L 10-22 Not Available [facility] [address] [place] [address], 80396, 09/09/2023 19:42:14 09/09/19 24 09/09/2023 CMP, serum or plasm a glucose 98 mg/dL 70-100 Not Available [facility] [address] [place] [address], 52773, 09/09/2023 19:42:14 09/09/19 24 09/09/2023 CMP, serum or plasm a calcium 9.7 mg/dL 8.4-10 .4 Not Available [facility] [address] [place] [address], 34682, 09/09/2023 19:42:14 09/09/19 24 09/09/2023 CMP, serum or plasm a total protein 7.4 g/dL 6.4-8. 3 Not Available [facility] [address] [place] [address], 93477, 09/09/2023 19:42:14 09/09/19 24 09/09/2023 CMP, serum or plasm a albumin 4.5 g/dL 3.5-5. 3 Not Available [facility] [address] [place] [address], 61248, 09/09/2023 19:42:14 09/09/19 24 09/09/2023 CMP, serum or plasm a ALP 98 U/L 44 - 127 Not Available [facility] [address] [place] [address], 45737, 09/09/2023 19:42:14 09/09/19 24 09/09/2023 CMP, serum or plasm a AST (SGOT) 22 U/L 10-40 Not Available [facility] [address] [place] [address], 45897, 09/09/2023 19:42:14 09/09/19 24 09/09/2023 CMP, serum or plasm a total bilirubin 0.3 mg/dL 0.2-1. 0 Not Available [facility] [address] [place] [address], 46816, 09/09/2023 19:42:14 09/09/19 24 09/09/2023 CMP, serum or plasm a ALT (SGPT) 32 U/L 8-35 Not Available [facility] [address] [place] [address], 01639, 09/09/2023 19:42:14 09/09/19 24 09/09/2023 CMP, serum or plasm a BUN 16 mg/dL 7-21 Not Available [facility] [address] [place] [address], 00966, 09/09/2023 19:42:14 09/09/19 24 09/09/2023 CMP, serum or plasm a creatinine 0.9 mg/dL 0.7-1. 3 Not Available [facility] [address] [place] [address], 81367, 09/09/2023 19:42:14 09/09/19 24 09/09/2023 CMP, serum or plasm a GFR(non-afri can thai) 92 Not Available [facility] [address] [place] [address], 13839, 09/09/2023 19:42:14 09/09/19 24 09/09/2023 CMP, serum or plasm a GFR() 111 (RECYCLER CAITLIN KIDNE Y DISEA SE HAS A GFR LESS THAN 60 ML/SD N/1.7 3 MM FOR A PERIO D OF THREE MONTH S OR MORE. ) Not Available [facility] [address] [place] [address], 28082, 09/09/2023 19:42:14 09/09/19 24 09/09/2023 C-carlene ctive prote in, quant itati ve, serum or plasm a CRP high Not Available [facility] [address] [place] [address], 75489, 09/09/2023 19:42:16 09/09/19 24 09/09/2023 C-carlene ctive prote in, quant itati ve, serum or plasm a CRP 1.4 mg/dL <0.4-0 .5 high Not Available [facility] [address] [place] [address], 73221, 09/09/2023 19:42:16 09/09/19 24 09/10/2023 C4 (comp lemen t), serum or plasm a complement C4 42 mg/dL 12-38 high Not Available [facility] [address] [place] [address], 48317, 09/10/2023 11:39:17 09/09/19 24 09/10/2023 sjogr en antib radha panel (ssa, ssb, ro, la), serum sjogren's Ab (ssa Not Available [facility] [address] [place] [address], 29045, 09/10/2023 11:39:21 09/09/19 24 09/10/2023 sjogr en antib radha panel (ssa, ssb, ro, la), serum *ssa result <0.2 ai 0.0-0. 9 Not Available [facility] [address] [place] [address], 03164, 09/10/2023 11:39:21 09/09/19 24 09/10/2023 sjogr en antib radha panel (ssa, ssb, ro, la), serum *ssb result <0.2 ai 0.0-0. 9 Not Available [facility] [address] [place] [address], 95757, 09/10/2023 11:39:21 09/09/19 24 09/10/2023 urena Ab + software development engineer Ab, serum sm/software development engineer antibodies Not Available [facility] [address] [place] [address], 83306, 09/10/2023 11:39:23 09/09/19 24 09/10/2023 urena Ab + software development engineer Ab, serum sm antibodies <0.2 ai 0.0-0. 9 Not Available [facility] [address] [place] [address], 46931, 09/10/2023 11:39:23 09/09/19 24 09/10/2023 urena Ab + software development engineer Ab, serum software development engineer antibody. 0.7 ai 0.0-0. 9 Not Available [facility] [address] [place] [address], 94724, 09/10/2023 11:39:23 09/09/19 24 09/10/2023 C3 (comp lemen t), serum or plasm a complement C3 175 mg/dL 82-167 high Not Available [facility] [address] [place] [address], 25065, 09/10/2023 11:39:25 09/09/19 24 09/09/2023 arthr itis panel uric acid 4.2 mg/dL 4.4-7. 6 low Not Available [facility] [address] [place] [address], 94951, 09/12/2023 12:18:18 09/09/19 24 09/09/2023 arthr itis panel rf <3.5 IU/mL <3.5-1 4 Not Available [facility] [address] [place] [address], 46994, 09/12/2023 12:18:18 09/09/19 24 09/09/2023 arthr itis panel ccp antibody, IgG <0.54 U/mL <=4.9 Not Available [facility] [address] [place] [address], 23735, 09/12/2023 12:18:18 09/09/19 24 09/12/2023 arthr itis panel arthritis panel Not Available [facility] [address] [place] [address], 06308, 09/12/2023 12:18:18 09/09/19 24 09/12/2023 arthr itis panel ENRIQUE screen NEGATI VE negati ve Perfo rmed by Bio-R ad enzym e immun oassa y Not Available [facility] [address] [place] [address], 11068, 09/12/2023 12:18:18 09/09/19 24 09/16/2023 DNA doubl e stran d Ab, QL, serum DNA Ab; double stranded NEGATI VE negati ve Not Available [facility] [address] [place] [address], 03817, 09/16/2023 15:13:20 09/09/19 24 09/18/2023 hla-B 27, blood hla-B27, DNA typing Not Available [facility] [address] [place] [address], 62500, 09/18/2023 11:38:39 09/09/19 24 09/18/2023 hla-B 27, [...] HLA Lab CLIA ID Patito [id number] THis test was perfo rmed using Polym erase Chain React ion (PCR) and Seque nce Speci fic Oligo nucle otide Probe s (SSOP ) techn ique. Seque nce Based Typin g (SBT) may be used as a suppl ement al metho d when neces nader. If you have quest ions, plejustyna e call HLA custo darinel servi ce at [phone] or email at HLA [email or web address] or.[email or web address] om. Not Available [facility] [address] [place] [address], 37506, 09/18/2023 11:38:39 09/09/19 24 09/09/2023 arthr itis panel arthritis panel Not Available [facility] [address] [place] [address], 55419, 09/09/2023 20:07:53 09/09/19 24 09/09/2023 arthr itis panel uric acid 4.2 mg/dL 4.4-7. 6 low Not Available [facility] [address] [place] [address], 35725, 09/09/2023 20:07:53 09/09/19 24 09/09/2023 arthr itis panel ENRIQUE screen PENDIN G Not Available [facility] [address] [place] [address], 97099, 09/09/2023 20:07:53 09/09/19 24 09/09/2023 arthr itis panel rf <3.5 IU/mL <3.5-1 4 Not Available [facility] [address] [place] [address], 26082, 09/09/2023 20:07:53 09/09/19 24 09/09/2023 arthr itis panel ccp antibody, IgG <0.54 U/mL <=4.9 Not Available [facility] [address] [place] [address], 54499, 09/09/2023 20:07:53 09/09/19 24 09/09/2023 arthr itis panel arthritis panel Not Available [facility] [address] [place] [address], 93646, 09/09/2023 19:42:18 09/09/19 24 09/09/2023 arthr itis panel uric acid 4.2 mg/dL 4.4-7. 6 low Not Available [facility] [address] [place] [address], 63809, 09/09/2023 19:42:18 09/09/19 24 09/09/2023 arthr itis panel ENRIQUE screen PENDIN G Not Available [facility] [address] [place] [address], 60737, 09/09/2023 19:42:18 09/09/19 24 09/09/2023 arthr itis panel rf PENDIN G Not Available [facility] [address] [place] [address], 54685, 09/09/2023 19:42:18 09/09/19 24 09/09/2023 arthr itis panel ccp antibody, IgG PENDIN G Not Available [facility] [address] [place] [address], 31903, 09/09/2023 19:42:18 09/09/19 24 09/09/2023 urena Ab + software development engineer Ab, serum sm and sm/software development engineer antibodies Not Available [facility] [employer], [place] [address], [address], 05/14/2024 06:38:12 09/09/19 09/09/2023 urena Ab + software development engineer Ab, serum sm antibodies <0.2 ai 0.0-0. 9 Not Available [place], [employer] [address], [address], 05/14/2024 06:38:12 09/09/19 24 09/09/2023 urena Ab + software development engineer Ab, serum software development engineer antibody 0.7 ai 0.0-0. 9 Not Available [place], [employer] [address] [facility] [address], [address], 05/14/2024 06:38:12 09/09/19 24 09/09/2023 ESR (eryt hrocy te sedim entat ion rate) , blood sed rate 49 mm/HR 0 - 20 high Not Available [facility] - [address], [place], [address], 05/14/2024 06:38:12 09/09/19 24 09/09/2023 C-carlene ctive prote in, quant itati ve, serum or plasm a CRP Not Available [facility] [place] [address], [address], 05/14/2024 06:38:11 09/09/19 24 09/09/2023 C-carlene ctive prote in, quant itati ve, serum or plasm a CRP 1.4 mg/dL <0.4-0 .5 high Not Available [facility] [place] [address], [place], [address], 05/14/2024 06:38:11 09/09/19 24 09/09/2023 C4 (comp lemen t), serum or plasm a complement C4 42 mg/dL 12-38 high Not Available [facility] [address], [place], [address], 05/14/2024 06:38:11 09/09/19 24 09/09/2023 C3 (comp lemen t), serum or plasm a complement C3 175 mg/dL 82-167 high Not Available [facility] ([facility]) [address] [facility], [place], [address], 05/14/2024 06:38:10 09/09/19 24 09/09/2023 DNA doubl [...] hla lab clia id patito cobb [id number] this test was perfo rmed using polym erase chain react ion (PCR) and seque nce speci fic oligo nucle otide probe s (ssop ) techn ique. seque nce based typin g (sbt) may BE used a suppl ement al metho d when neces nader. if you have quest ions, pleas e call [facility] custo darinel servi ce at [phone] or email at [email or web address] or.[email or web address] om. ----- Not Available Not Available [...] CMP, serum or plasm a GFR;non-afri can thai 92 Not Available Not Available 05/14/2024 06:37:58 09/09/19 24 09/09/2023 CMP, serum or plasm a GFR; 111 (synchronizer caitlin kidne y disea se has A [...] Address Organization Details Recorded Time Hyperuricem ia 70413728 Active 2023 [facility] 4 12:55:20 Mechanical low back pain 509368159 Active 2023 [facility]well [facility] 4 12:55:20 Pain of bilateral hands 6901528763629 9109 Active 2023 Onesimo Boswell [facility] 4 17:18:47 Pain of multiple joints 01880035 Active 2023 Onesimo Boswell [facility] 4 17:23:41 Osteoarthri tis 845612940 Active 2023 Kapil Ramirez MD [address] [place] [address], [phone], [facility] 4 18:36:54 Low back pain 379705610 Active 2023 Kapil Ramirez MD [address] [place] [address], [phone], [facility] 4 18:37:01 C-reactive protein above reference range 5372728797340 04 Active 2023 Kapil Ramirez MD [address] [place] [address], [address], [facility] 4 18:37:17 Seronegativ e rheumatoid arthritis 758181588 Active 2023 [facility] 4 11:38:53 Notes:Some problems listed i n Documents: #[id number], #[id number], #[id number], #[id number], #[id number] could not be added to this patient's chart. Please review these documents and add these problems to the patient's chart manually as needed. Problem Notes None recorded. Medical Equipment None Reported. Allergies Allergen ID Allergen Name Allergen Category Reaction Reaction Severity Criticality Documentation Date Start Date Code Code System Note Provider Name and Address Organization Details Recorded Time 4840791 Product containin g 3-hydroxy -3-methyl glutaryl- coenzyme A reductase inhibitor (product) medicatio n myalgias (muscle pain) Not available Not available 09/09/2023 94990 009 SNOMED Not Available Not Available Not [...] Updated DateTime 4 185.42 cm 34.7 kg/m2 623301. 79 g 97 /min 96 % 96 % 8 144 mm[Hg] 90 mm[Hg] [facility] 4 16:28:01 Date Recorded Body height Body mass index (BMI) Body weight Heart rate Oxygen saturation Oxygen saturation in Arterial blood by Pulse oximetry Pain severity - 0-10 verbal numeric rating [Score] - Reported Systolic blood pressure Diastolic blood pressure Provider Name and Address Organization Details Last Updated DateTime 4 185.42 cm 34.3 kg/m2 849404. 02 g 87 /min 97 % 97 % 4 136 mm[Hg] 88 mm[Hg] [facility] 4 11:02:29 Date Recorded Body height Body mass index (BMI) Body weight Heart rate Oxygen saturation Oxygen saturation in Arterial blood by Pulse oximetry Pain severity - 0-10 verbal numeric rating [Score] - Reported Systolic blood pressure Diastolic blood pressure Provider Name and Address Organization Details Last Updated DateTime 5 185.42 cm 34.5 kg/m2 733734. 76 g 97 /min 96 % 96 % 0 140 mm[Hg] 82 mm[Hg] Chanelle Duke [facility] 5 12:07:17 Social History None recorded. Functional Status None recorded. Mental Status None recorded. Family History Relationship Description Onset Age of this Age Resolved Age Notes LastModified by Organization Details LastModified Time Father Malignant neoplasm of lung Not available 2023 16:29:23 Mother Malignant tumor of breast [id number] Not available 2023 16:29:34 Medical History No medical history recorded. Immunizations Vaccine Type Date Status Note Provider Nam e and Address Organization Details Recorded Time Influenza, split virus, quadrivalent, preservative 7 completed [facility] 09/09/2023 16:28:16 Influenza, split virus, quadrivalent, preservative 6 completed [facility] 09/09/2023 16:28:16 Past Encounters Encounter ID Performer Location Encounter Start Date Encounter Closed Date Diagnosis/Indication Diagnosis SNOMED-CT Code Diagnosis ICD10 Code Diagnosis Note [id number] Kapil Ramirez MD [address] [place] [address] [place] ([place]) [address] [address] 09/09/2023 15:46:58 09/19/2023 15:24:05 Pain of multiple joints 63217606 M25.50 Osteoarthritis 191923177 M19.90 Low back pain 385550345 M54.50 C-reactive protein above reference range 3597380336 45134 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-inflammatory drug 7265962739 67092 Z79.1 Long-term current use of steroid 123322527 Z79.52 [id number] Kapil Ramirez MD [facility] [place] ([place]) [address] [place], [place] [address]el d MEGHAN [address] 12/12/2023 10:21:06 12/17/2023 08:02:06 Pain of multiple joints 35046188 M25.50 Seronegati ve rheumatoid arthritis 322767330 M06.00 Polymyalgi a rheumatica 76368917 M35.3 Mechanical low back pain 589508432 M54.50 Hyperuricemia 57760768 E 79.0 Long-term current use of steroid 938187225 Z79.52 [id number] Kapil Ramirez MD [facility] [place] ([place]) [address] [place] [address] 05/28/2024 11:57:14 05/30/2024 07:00:49 Seronegative rheumatoid arthritis 439631696 M06.00 Osteoarthritis 198370959 M19.90 Mechanical low back pain 879117116 M54.50 Hyperuricemia 70209647 E 79.0 Health Concerns Section Related Observation LastModified by Organization Detai ls LastModified Time None Recorded Concern Status LastModified by Organization Details LastModified Time None Recorded Advance Directives Directive None Recorded Payers Encounter Date Sequence Insurance Name Policy Number Policy Frazier Covered Member ID Frazier Member ID Guarantor Name 09/09/2023 2 [place] [employer] [facility] [id number] [facility] 09/09/2023 1 [facility] (MEDICARE REPLACEMENT/A DVANTAGE - HMO) [id number] Odilon May [id number] [facility] 12/12/2023 2 [place] [employer] [employer] [facility] [id number] 12/12/2023 1 [facility] (MEDICARE REPLACEMENT/A DVANTAGE - HMO) [id number] Odilon May [id number] Odilon May 05/28/2024 2 [place] [employer] [place] [employer] Odilon May [id number] Odilon May 05/28/2024 1 [facility] (MEDICARE REPLACEMENT/A DVANTAGE - HMO) [id number] Odilon May [id number] [facility] Notes Date Note Type Note Provider Name [...] underlying autoimmune disease.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 He admits jirl-sjk-bagaurc he will use up to 1 g [...] the patient s past medical history and [employer] intake form.luis f Ramirez MD [address] [place] [address], [phone], [facility] 09/10/2023 21:35:37 12/12/2023 text/html The patient [...] gross hematuria.luis f Ramirez MD [address] [place] [address], [phone], [facility] 12/16/2023 22:41:49 05/28/2024 text/html The patient [...] Appetite is normal.antonio Ramirez MD [address] [facility], [place], [address], [facility] 05/29/2024 17:51:19
--- OUTSIDE RECORDS SUMMARY | 2024-09-15 12:34 | XMS_ITS | Clinical Summary ---
Author Organization [facility] Address [address] [place] [address] Care Team Providers Care Hide Examiner Name Role Phone Mikel Krueger MD Primary Care Provider [phone] Source Comments [facility],non-owned Affiliates and Associated Physician Practices is amultiple site organization consisting of ambulatory clinics and hospital sitesin [place], [place], [place] and [place]. This disclosure is being madepursuant to the Care Everywhere program and may not contain all information available regarding this patient. Last updated 18.[facility] Allergies Active Allergy Reactions Criticality Noted Date Comments Ezetimibe Myalgias,Unknown High 07/03/2021 Reaction: myalgias, Reaction: myalgias, Reaction: myalgias, Reaction: myalgias, Hmg-Coa-R Inhibitors Myalgias,Unknown High 2 Reaction: myalgias, Reaction: myalgias, Skin Adhesives Rash Medium 03/01/2023 Medications * Be aware that medications may not be up to date on this document. Alwaysverify current medications with the patient. allopurinol (Zyloprim) 100 MG tablet Take 2 (two) tablets by mouth once daily 3 Active DULoxetine (Cymbalta) 30 MG capsule Take 1 (one) capsule by mouth 3 Active DULoxetine (Cymbalta) 60 MG capsule TAKE 1 CAPSULE (60 MG) BY ORAL ROUTE ONCE DAILY AT BEDTIME 3 Active furosemide (Lasix) 40 MG tablet Take 1 (one) tablet by mouth every morning Active lisinopril (Prinivil; Zestril) 10 MG tablet Take 1 (one) tablet by mouth Active meloxicam (Mobic) 15 MG tablet Take 1 (one) tablet by mouth once daily Active omeprazole (PriLOSEC) 40 MG capsule Take 1 (one) capsule by mouth once daily Active predniSONE (Deltasone) 5 MG tablet Take 1 (one) tablet by mouth once daily Active HYDROcodone-acet aminophen ([place]) 5-325 MG tabletIndication s:Prostate cancer (HCC) Take 1 (one) tablet by mouth every 6 hours as needed for Pain 12 tablet 3 Active Additional Information Patient not taking.Reported on 03/01/2023 senna (Senokot) 8.6 MG tablet Take 1 (one) tablet by mouth once daily 7 tablet 3 Active Additional Information Patient not taking.Reported on 03/01/2023 silver sulfADIAZINE (Silvadene) 1 % cream APPLY TO WOUND TWICE A DAY 3 Active Active Problems Problem Noted Date Diagnosed Date Prostate cancer 02/19/2023 Family History Medical History Relation Name Comments Cancer - Prostate Maternal Grandfather Relation Name Status Comments Maternal Grandfather Social History Tobacco Use Types Packs/Day Years Used Date Smoking Tobacco: Never Smokeless Tobacco: Never Tobacco Cessation:Counseling Given: Not Answered Alcohol Use Standard Drinks/Week Comments Not Currently 0 (1 standard drink = 0.6 oz pur e alcohol) AUDIT-C Answer Date Recorded Q1: How often do you have a drink containing alcohol? Never 02/19/2023 Q2: How many drinks containi ng alcohol do you have on a typical day when you are drinking? Patient does not drink Q3: How often do you have si x or more drinks on one occasion? 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 Gender Identity Not on file Sexual Orientation Not on file Last Filed Vital Signs Vital Sign Reading Time Taken Comments Blood Pressure 133/83 06/05/2023 12:08 PM FLIGHT LINE SERVICE ATTENDANT Pulse 91 06/05/2023 12:08 PM FLIGHT LINE SERVICE ATTENDANT Temperature 36.6 C (97.9 F) 06/05/2023 12:08 PM FLIGHT LINE SERVICE ATTENDANT Respiratory Rate 18 03/01/2023 10:49 AM CDT Oxygen Saturation 95% 06/05/2023 12:08 PM FLIGHT LINE SERVICE ATTENDANT Inhaled Oxygen Concentration - - Weight 112 kg (247 lb) 06/05/2023 12:08 PM FLIGHT LINE SERVICE ATTENDANT Height 185.4 cm (6' 1 ) 06/05/2023 12:08 PM FLIGHT LINE SERVICE ATTENDANT Body Mass Index 32.59 06/05/2023 12:08 PM FLIGHT LINE SERVICE ATTENDANT Plan of Treatment Health Maintenance Due Date Last Done Comments COLOGUARD (AGES 45-75) - COL ON CA SCREENING 1963 COLON MONITORING 1963 COLONOSCOPY - COLON CA SCREENING 1963 CT COLONOGRAPHY - COLON CA SCREENING 1963 Colorectal Cancer Screening 1963 FIT - COLON CA SCREENING 1963 FLEX SIG - COLON CA SCREENING 1963 LIPID TESTING 1963 HIV SCREENING 11/10/1978 HEPATITIS C SCREENING 11/06/1981 DTAP/TDAP/TD VACCINES (1 - Tdap) 11/10/1982 PNEUMOCOCCAL VACCINE 50+ (1 of 1 - PCV) 11/10/2013 ZOSTER VACCINE (1 of 2) 11/10/2013 COVID-19 VACCINE (1 - 2023-2 5 season) 2024 DEPRESSION SCREENING 05/20/2024 MEDICARE AWV CALENDAR YEAR 2024 INFLUENZA VACCINE (Season Ended) 2025 07/06/19 12 SCREENING FOR DIABETES 02/05/2026 02/05/2023 Respiratory Syncytial Virus (RSV) Vaccine Pt: or over 60 yrs (1 - 1-dose 75+ series) 11/10/2038 HEPATITIS B VACCINE Aged Out No longe r eligible based on patient's age to complete this topic HIB VACCINE Aged Out No longer eligi ble based on patient's age to complete this topic HPV VACCINE Aged Out No longer eligi ble based on patient's age to complete this topic MENINGOCOCCAL (Group B) VACC INE SHARED DECISION-MAKING Aged Out No longer eligibl e based on patient's age to complete this topic MENINGOCOCCAL GROUPS A/C/Y/W VACCINE Aged Out No longer eligible b ased on patient's age to complete this topic Procedures Procedure Name Priority Date/Time Associated Diagnosis Comments BASIC METABOLIC PANEL (CALCIUM TOTAL) Routine 02/05/2023 11:05 AM CDT Prostate cancer Pre-op testing from Last 3 Months or Most Recently Relevant to Health Maintenance Results * BASIC METABOLIC PANEL (CALCIUM TOTAL) (02/05/2023 11:05 AM CDT) BUN 16 7 - 26 mg/dL 02/05/2023 11:52 AM [facility] Creatinine 0.94 0.71 - 1.16 mg/dL 02/05/2023 11:52 AM [facility] Sodium 141 136 - 145 mmol/L 02/05/2023 11:52 AM [facility] Potassium 4.1 3.5 - 4.5 mmol/L 02/05/2023 11:52 AM [facility] Chloride 106 98 - 107 mmol/L 02/05/2023 11:52 AM [facility] CO2 28 22 - 29 mmol/L 02/05/2023 11:52 AM [facility] Glucose 105 70 - 115 mg/dL 02/05/2023 11:52 AM [facility] Calcium 9.7 8.4 - 10.2 mg/dL 02/05/2023 11:52 AM [facility] Anion Gap 7 6 - 16 02/05/2023 11:52 AM [facility] BUN/Creatinine Ratio 17 7 - 23 02/05/2023 11:52 AM [facility] Osmolality Calculated 294 270 - 300 mOsm/kg 02/05/2023 11:52 AM [facility] eGFR by CKD-EPI >90 >=90 mL/min/1.7 3 m2 02/05/2023 11:52 AM [facility] Blood BLOOD SPECIMEN / Unknown Lab Venipuncture / Unknown 02/05/2023 11:05 AM [facility] 02/05/2023 11:25 AM [facility] Lamberto Galindo MD LAB - CHEMISTRY ORDERABLES Final Result [facility] [address] [place] [address], [facility] [phone] from Last 3 Months or Most Recently Relevant to Health Maintenance Insurance [facility] MANAGED MEDICARE ADV Advance Directives * Full Code (Latest Code Status on File) Date Activated Date Inactivated Comments 02/19/2023 8:00 PM 02/20/2023 12:32 PM Care Teams Hide Examiner Relationship Specialty Start Date End Date Mikel Krueger MD [address] [place] [address] PCP - General 09/19/21
--- OUTSIDE RECORDS SUMMARY | 2024-09-15 12:34 | XMS_ITS | Clinical Summary ---
Author Organization [facility] Address [address] [place] [address] Care Team Providers Care Baker Helper Name Role Phone Mikel Krueger MD Primary Care Provider [phone] Allergies Active Allergy Reactions Criticality Noted Date [...] this topic Medical Devices Implanted Type Area Recycler Device Identifier Shelf Expiration Date Model / Serial / Lot Cement Simplex Hv W/Gentamicin - [id number] Implanted:Qty: 1 on 02/09/2019 by Jelani De Leon MD at [facility] Right: Knee [employer] 02/17/2020 6195-1-010 / / [id number] Cement Simplex Hv W/Gentamicin - [id number] Implanted:Qty: 1 on 02/09/2019 by Jelani De Leon MD at [facility] Right: Knee [employer] 02/17/2020 6195-1-010 / / [id number] Attune Femoral Posterior Stabilized Size 6 Right Cemented Implanted:Qty: 1 on 02/09/2019 by Jelani De Leon MD at [facility] Right: Knee 11/16/2028 1504-03-08 6 / / [id number] Attune Knee System Tibial Base Rotating Platform Implanted:Qty: 1 on 02/09/2019 by Jelani De Leon MD at [facility] Right: Knee 07/17/2028 6 / / [id number] Attune Patella Medialized Dome Implanted:Qty: 1 on 02/09/2019 by Jelani De Leon MD at [facility] Right: Knee 04/18/2023 8 / / [id number] Attune Tibial Insert Rotating Platform Posterior Stabilized Implanted:Qty: 1 on 02/09/2019 by Jelani De Leon MD at [facility] Right: Knee 07/17/2021 0 / / [id number] Explanted Type Area Recycler Device Identifier Shelf Expiration Date Model / Serial / Lot Drill Bit Synthes 2.5 Qc 110mm Gold - [id number] Explanted:Qty: 1 on 02/09/2019 at [facility] Right: Knee SY[employer]ES 310.25 / / Insurance Advance Directives * Full Code (Latest Code Status on File) Date Activated Date Inactivated Comments 02/09/2019 10:30 AM 02/11/2019 1:10 PM Care Teams Baker Helper Relationship Specialty Start Date End Date Mikel Krueger MD [address] [place] [address] PCP - General INTERNAL MEDICINE 01/23/19
== END 2024-09-15 11:03 | disposition home or self-care (01) ==
LOC: CHSLAB 11:07
PROVIDERS: PCP Internal Medicine; Visit Provider Internal Medicine
DX: N39.0 Urinary tract infection, site not specified (principal)
CPT/HCPCS: 81001; 87086; 87186

== ENCOUNTER 2024-09-28 07:39 | Outpatient (CLI) | payer MEDICARE, SELFPAY ==
--- NOTE | ~2024-09-28 | CT_ITS ---
CT of the Abdomen and Pelvis: Indication: Prostate cancer, bacteria in urine Technique: 2.5 mm axial scans were obtained through the abdomen and pelvis prior to and following in travenous administration of 130 cc of Omnipaque 350. Dose reduction technique was used on this scan b y utilizing automated exposure control and iterative reconstruction technique. The dose-length produc t (DLP) was 2820.84 mGy-cm. Findings: Scans through the lung bases are unremarkable. The liver, spleen, pancreas, gallbladder, right adrenal and and right kidney are within normal limits . Probable tiny punctate nonobstructing left renal stones. 1.3 cm low-density left adrenal nodule is compatible with adenoma. No evidence of aortic aneurysm. No lymphadenopathy. No bowel obstruction or bowel wall thickening. There is no evidence to suggest acute appendicitis. Images through the pelvis were performed. Small right-sided urinary bladder diverticulum. Possible mi ld diffuse bladder wall thickening. Probable prior prostatectomy. No pelvic mass evident. No ascites. Impression: No evidence of metastatic disease. Possible cystitis with small right-sided urinary bladder diverticulum. Correlate with urinalysis. Probable tiny punctate nonobstructing left renal stones. The adrenal adenoma. Reviewed, dictated and finalized at [facility]. Impression: No evidence of metastatic disease. Possible cystitis with small right-sided urinary bladder diverticulum. Correlat e with urinalysis. Probable tiny punctate nonobstructing left renal stones. The adrenal adenoma.
--- OUTSIDE RECORDS SUMMARY | 2024-09-28 07:44 | XMS_ITS | Clinical Summary ---
Author Organization [facility] Address [address] [place] [address] Phone Care Team Providers Care Bench Mechanic Name Role Phone Mikel Krueger MD Primary Care Provider [phone] Allergies Active Allergy Reactions Criticality Noted Date [...] on file Legal Sex Male 8:22 AM TUB RIDER Gender Identity Not on file Sexual Orientation Not on file Last Filed Vital Signs Vital Sign Reading Time Taken Comments Blood Pressure 122/82 07/03/2021 9:10 AM TUB RIDER Pulse 102 07/03/2021 9:10 AM TUB RIDER Temperature 36.4 C (97.6 F) 07/03/2021 9:10 AM TUB RIDER Respiratory Rate 20 07/03/2021 9:10 AM TUB RIDER Oxygen Saturation 97% 07/03/2021 9:10 AM TUB RIDER Inhaled Oxygen Concentration - - Weight 115.3 kg (254 lb 3.2 oz) 07/03/2021 9:10 AM TUB RIDER Height 185.4 cm (6' 1 ) 07/03/2021 9:10 AM TUB RIDER Body Mass Index 33.54 07/03/2021 9:10 AM TUB RIDER Plan of Treatment Health Maintenance Due Date [...] Comments PSA SCREEN Routine 07/03/2021 10:28 AM TUB RIDER Elevated PSA from Last 3 Months or Most Recently Relevant to Health Maintenance Results * (ABNORMAL) PSA SCREEN (07/03/2021 10:28 AM TUB RIDER) PSA SCREEN, TOTAL 6.22(H) <=4.00 ng/mL 07/03/2021 12:02 PM TUB RIDER [facility] Blood Venipuncture / Unknown 07/03/2021 10:28 AM TUB RIDER 07/03/2021 10:51 AM TUB RIDER Narrative [facility] - 07/03/2021 12:02 PM TUB RIDER PSA NOTE: The PSA value should be used in conjunction with information available from clinical evaluation and other diagnostic procedures. us Elias Bridges MD CHEMISTRY ORDERABLES Final Result [facility] [address] [place] [address] from Last 3 Months or Most Recently Relevant to Health Maintenance Insurance [facility]ICARE [facility] Advance Directives Documents on File Type Date Recorded Patient Psychologist Developmental Expl anation Other Advance Directive 07/05/2021 3:54 PM [facility] LAB RESULTS Care Teams Bench Mechanic Relationship Specialty Start Date End Date Mikel Krueger MD [address] [place] [address] PCP - General Internal Medicine 06/02/21
--- OUTSIDE RECORDS SUMMARY | 2024-09-28 07:45 | XMS_ITS | Data Portability ---
Author Organization [facility] [employer], Main Office Address [address] [place] [address] Assessment No assessment recorded. Plan of Treatment [...] negative karena/ l) Negati ve Not Available [facility], [address], [address], 09/27/2021 08:48:41 09/28/19 22 09/27/2021 urina lysis , dipst ick Nitrite (reference rage: negative mg/dl) negati ve Not Available [facility], [address], 09/27/2021 08:48:41 09/28/19 22 09/27/2021 urina lysis , dipst ick Urobilinogen (reference range: 0.2-1 mg/dl) 0.2 Not Available Z_[facility]_[address], [address], 09/27/2021 08:48:41 09/28/19 22 09/27/2021 urina lysis , dipst ick Protein (reference range: negative mg/dl) Negati ve Not Available [address], [place] [place] [address], [place], [address], 09/27/2021 08:48:41 09/28/19 22 09/27/2021 urina lysis , dipst ick pH (reference range: 5-7) 5.5 Not Available [address] [address], [place], [address], 09/27/2021 08:48:41 09/28/19 22 09/27/2021 urina lysis , dipst ick Blood (reference range: negative Evan/ l) Negati ve Not Available [address], [address], 09/27/2021 08:48:41 09/28/19 22 09/27/2021 urina lysis , dipst ick Specific [place] (reference range: 1.005-1.030) 1.030 Not Available [address] [address], [place], [address], 09/27/2021 08:48:41 09/28/19 22 09/27/2021 urina lysis , dipst ick Ketone (reference range: negative mg/dl) Negati ve Not Available [address], [address], 09/27/2021 08:48:41 09/28/19 22 09/27/2021 urina lysis , dipst ick Bilirubin (reference range: negative mg/dl) Negati ve Not Available [address], [address], 09/27/2021 08:48:41 09/28/19 22 09/27/2021 urina lysis , dipst ick Glucose (reference range: negative mg/dl) Negati ve Not Available [address], [address], 09/27/2021 08:48:41 09/28/19 22 09/27/2021 urina lysis , dipst ick Appearance Clear Not Available [address], [address], 09/27/2021 08:48:41 09/28/19 22 09/27/2021 urina lysis , dipst ick Color Yellow Not Available [address], [address], 09/27/2021 08:48:41 09/28/19 22 09/27/2021 US, bladd er No observ ation record ed. [id number], [address], 07/19/2022 01:01:20 10/26/19 23 10/24/2022 biops y, prost ate, needl e (PROC ) No observ ation record ed. [email or web address] Not Available 2022 11:11:32 Result Notes None recorded. Problems Name Problem SNOMED Code Status Onset Date Resolution Date Notes Provider Name and Address Organization Details Recorded Time Benign prostatic hyperplasia with outflow obstruction 344249076 Active 05/11/ 2022 Not Available [facility] 3 01:00:06 Prostate specific antigen above reference range 367539114 Active 2021 Not Available [facility] 3 01:00:06 Malignant neoplasm of prostate 036401246 Active 2021 Not Available [facility] 3 01:00:06 Carcinoma of prostate 398611343 Active 2022 Ana María franklin, [facility] 3 16:12:15 Benign prostatic hyperplasia 791783770 Active 2022 Wesley Sadler MD [address] [facility], [place] [address] [address], [place], [address] , [employer] [facility] 3 12:28:03 Problem Notes None recorded. Procedures Surgical History Date Name Laterality Status Provider Name and Address Organization Details Recorded Time 10/25/19 23 Prostate Biopsy JTA completed Wesley Sadler MD [address] [address], [place], [address], [employer] 10/24/2022 12:25:57 wrist repair completed Not Available [facility] 07/19/2022 00:59:11 Knee Replacement completed Not Available [facility] 07/19/2022 00:59:11 Imaging Results Imaging Date Name Status LastModified by Organiz ation Details LastModified Time 09/27/2021 US, bladder completed [id number] [id number] [place] [address] [facility], [address], [place], [address], 07/19/2022 01:01:20 10/24/2022 biopsy, prostate, needle (PROC) completed [email or web address] Information not available 10/25/2022 11:11:32 Procedure Notes None recorded. Medical Equipment None Reported. Allergies Allergen ID Allergen Name Allergen Category Reaction Reaction Severity Criticality Documentation Date Start Date Code Code System Note Provider Name and Address Organization Details Recorded Time 16697 Product containin g 3-hydroxy -3-methyl glutaryl- coenzyme A reductase inhibitor (product) medicatio n Not available Not available Not available 07/19/2022 91656 009 SNOMED Not Available [facility] 3 01:01:06 Medications Name Sig Start Date [...] cm 96 % 96 % 98.6 [degF] 904422. 46 g Not Available [facility] 3 00:59:23 Date Recorded Body mass index (BMI) Body height Oxygen saturation Oxygen saturation in Arterial blood by Pulse oximetry Body temperature Body weight Provider Name and Address Organization Details Last Updated DateTime 2 33.5 kg/m2 185.42 cm 95 % 95 % 98.4 [degF] 354503. 46 g Not Available [facility] 3 00:59:24 Date Recorded Body mass index (BMI) Body height Oxygen saturation Oxygen saturation in Arterial blood by Pulse oximetry Heart rate Body temperature Body weight Provider Name and Address Organization Details Last Updated DateTime 2 33.4 kg/m2 185.42 cm 99 % 99 % 91 /min 98.1 [degF] 814961. 87 g Not Available [facility] 3 00:59:24 Date Recorded Body height Provider Name an d Address Organization Details Last Updated DateTime 10/24/2022 185.42 cm Mago Valadez MA [facility] [employer] [facility] 10/24/2022 11:59:45 Date Recorded Body mass index (BMI) Body weight Body temperature Heart rate Provider Name and Address Organization Details Last Updated DateTime 10/24/2022 33.5 kg/m2 905678.46 g 98.4 [degF] 77 /min Williams Farrell Mar[place] [employer] 10/24/2022 12:11:58 Date Recorded Body height Body mass index (BMI) Body weight Heart rate Oxygen saturation Oxygen saturation in Arterial blood by Pulse oximetry Body temperature Provider Name and Address Organization Details Last Updated DateTime 3 185.42 cm 0.3 kg/m2 907.18 g 111 /min 99 % 99 % 97.9 [degF] Williams Farrell [place] [employer] 3 10:20:03 Social History Question Answer Notes LastModified by [employer] Details LastModified Time Tobacco Smoking Status Never Smoker Not Available [facility] 07/19/2022 00:58:23 What Is Your Level Of Caffeine Consumption? Moderate [id number] Information not available 07/19/2022 What Was The Date Of Your Most Recent Tobacco Screening? 10/25/2021 [id number] Information not available 07/19/2022 Has Tobacco Cessation Counseling Been Provided? No [id number] Information not available 07/19/2022 Sex: Unknown Functional Status Question Answer Note LastModified by [employer] Details LastModified Time Do you use any illicit or recreational drugs? No [id number] Information not available 07/19/2022 Do you or have you ever used any other forms of tobacco or nicotine? No [id number] 26 Information not available 07/19/2022 What is your level of alcohol consumption? None [id number] Information not available 07/19/2022 Mental Status None recorded. Family History Relationship Description Onset Age of this Age Resolved Age Notes LastModified by Organization Details LastModified Time Unspecified Relation Diabetes mellitus [id number] Not available 07/19/2022 00:59:12 Unspecified Relation Heart disease [id number].940 [id number] Not available 07/19/2022 00:59:12 Unspecified Relation Hypertensive disorder MIGRATION.509 [id number] Not available 07/19/2022 00:59:12 Paternal Grandfather Malignant neoplasm of prostate MIGRATION.234 [id number] Not available 07/19/2022 00:59:12 Mother Malignant tumor of breast MIGRATION.036 [id number] Not available 07/19/2022 00:59:12 Father Malignant neoplasm of lung MIGRATION.717 [id number] Not available 07/19/2022 00:59:12 Medical History Condition Response ARTHRITIS Y HYPERTENSION Y Past Encounters Encounter ID Performer Location Encounter Start Date Encounter Closed Date Diagnosis/Indication Diagnosis SNOMED-CT Code Diagnosis ICD10 Code Diagnosis Note [id number] MD NILDA Muñoz [address] [address] 09/27/2021 00:00:00 09/27/2021 10:07:34 [id number] MD NILDA Muñoz [address] [address] 10/11/2021 00:00:00 10/11/2021 10:59:41 [id number] MD NILDA Muñoz [address] [address] 10/25/2021 00:00:00 10/25/2021 13:07:48 [id number] MD NILDA Muñoz [address] [address] 04/25/2022 00:00:00 04/25/2022 13:07:17 [id number] MD NILDA Muñoz [address] [address] 10/24/2022 11:54:17 10/24/2022 12:34:53 Malignant neoplasm of prostate 599740182 C61 :10/11/2021 TRUSBx - GS 6, 5/12, 90%, all on the PKYBKjP1e, 22cc, no median lobe, PSA 4.2 -PERTINENT IMAGING: None------ ------:-Th is patient has a diagnosis of LOW risk prostate cancer. Based on his available clinical informatio n, it appears his malignancy is localized, leaving him with some options in his management . -We highlighte d in our discussion the difference between his [facility] Pre-Prosta tectomy Nomogram his 99% 15y CSS [...] PSA 5.5)-RTC 4-5 weeks for path review [id number] Wesley Sadler MD [facility] [address] [address] 12/12/2022 10:11:21 12/12/2022 10:49:52 Malignant neoplasm of prostate 406876244 C61 :10/11/2021 TRUSBx - GS 6, 5/12, 90%, all on the DBPLArE1z, 22cc, no median lobe, PSA 4.2 10/24/2022 TRUSBx - GS 3+4=7, 5/12 cores, all on the RIGHT, 80%cT1c, no median lobe, 22cc gland, PSA 5.5 -PERTINENT IMAGING: None------ ------:-Th is patient has a diagnosis of INTERMEDIA TE risk prostate cancer. Based on his available clinical informatio n, it appears his malignancy is localized, leaving him with some options in his management .. -We keturah kang in our discussion the difference between his [facility] Pre-Prosta tectomy Nomogram his 98% 13y CSS [...] discuss this further with Dr. Galindo in [facility]. Due to lack of services for Radical Prostatect geri and Radiation at [facility] [place], and given patient's fixed income and need for in-network services, he is amenable to referral to [facility] for further counseling regarding treatment options [...] (MEDICARE REPLACEMENT/A DVANTAGE - PPO) [id number] Odilon May [id number] Odilon May 10/24/2022 2 [place] [employer] Odilon May [id number] Odilon May 12/12/2022 1 [employer] (MEDICARE REPLACEMENT/A DVANTAGE - PPO) [id number] Odilon May [id number] Odilon May 12/12/2022 2 [place] Odilon May [id number] Odilon May Notes Date Note Type Note Provider Name and Address Organization Details Recorded Time 10/24/2022 text/html :ORIGINAL HPI 09/27/2021 - Patient presents (with his daughter) for evaluation of elevated PSA. He was seen by Dr. Krzysztof Bridges in [place], [place], was advised to get a prostate biopsy, but due to being out of network and on a fixed income, has sought this service elsewhere. -INITIAL DIAGNOSIS: 10/11/2021 TRUSBx - GS 6, 09/28, 90%, all on the YDXVVhQ3m, 22cc, no median lobe, PSA 4.2 -PERTINENT IMAGING: None -PSA TREND:10/2022 - 5.512/2021 - 5.365 - 4.222/2021 - . -PRIOR BIOPSY: denies -FAMILY HISTORY OF PROSTATE CANCER: maternal grandfather; breast cancer (mother); lung cancer (father) -LOWER URINARY TRACT SYMPTOMS: Yes, on Tamsulosin -ISSUES WITH ERECTILE DYSFUNCTION: did not discuss -PRIOR ABDOMINAL OPERATIONS: Denies -COMPETING COMORBIDITIES (DM, HTN, CAD, Stroke, COPD, etc): -BLOOD THINNERS: NSAIDS UA: negative for blood or infectionPVR: 50ccIPSS/QOL: / (5 Freq; 2's IE, weak, noct) -- on Lasix INTERVAL HISTORY:10/25/2021 - Patient presents with his daughter in follow up to review next steps in management since his biopsy showed low risk prostate cancer, as above 10/24/2021 - Presents in follow up for surveillance biopsy, and a PSA stable as above Wesley Sadler MD [address] [place] [address], [address], [address], [place] [facility] [employer] [facility] [employer] 10/24/2022 12:27:14 12/12/2022 text/html :ORIGINAL HPI 09/27/2021 - Patient presents (with his daughter) for evaluation of elevated PSA. He was seen by Dr. Krzysztof Bridges in [place], [place], was advised to get a prostate biopsy, but due to being out of network and on a fixed income, has sought this service elsewhere. -INITIAL DIAGNOSIS:10/11/2021 TRUSBx - GS 6, 09/28, 90%, all on the FGLFWdT4k, 22cc, no median lobe, PSA 4.2 10/24/2022 TRUSBx - GS 3+4=7, 5/12 cores, all on the RIGHT, 80%cT1c, no median lobe, 22cc gland, PSA 5.5 -PERTINENT IMAGING: None -PSA TREND:10/2022 - 5.512/2021 - 5.365/2021 - 4.222/2021 - 6.22 -PRIOR BIOPSY: denies [...] services for Radical Prostatectomy and Radiation at [facility] [place], and given patient's fixed income and need [...] IMRT with his daughter Wesley Sadler MD [address] [facility], [facility] [address], [place], [address], [place] [employer] 12/12/2022 10:53:29
--- OUTSIDE RECORDS SUMMARY | 2024-09-28 07:45 | XMS_ITS | Clinical Summary ---
Author Organization [facility] Address [address] [place] [address] Care Team Providers Care Bilingual Speech Language Pathologist Name Role Phone Mikel Krueger MD Primary Care Provider [phone] Allergies Active Allergy Reactions Criticality Noted Date Comments Ezetimibe Muscle pain High Reaction: myalgias, Tclosdq-Iqk-Lpp Reductase Inhibitors Muscle pain High Reaction: myalgias, [...] 01/1990 L wrist cartila ge tear; Comments: [facility] this injury has had multiple procedures: [...] -throat ; Diabetes Sister 3 Qian Diabetes [facility]; Relation Name Status Comments Daughter [...] on file Legal Sex Male 12:50 AM SENIOR LIBRARIAN Gender Identity Not on file Sexual Orientation Not on file Obstetrics History Last Filed Vital Signs Vital Sign Reading Time Taken Comments Blood Pressure 155/94 07/25/2018 8:36 AM SENIOR LIBRARIAN Pulse 106 07/25/2018 8:36 AM SENIOR LIBRARIAN Temperature - - Respiratory Rate - - Oxygen Saturation - - Inhaled Oxygen Concentration - - Weight 118.8 kg (262 lb) 07/25/2018 8:36 AM SENIOR LIBRARIAN Height 185.4 cm (6' 1 ) 07/25/2018 8:36 AM SENIOR LIBRARIAN Body Mass Index 34.57 07/25/2018 8:36 AM SENIOR LIBRARIAN Plan of Treatment Not on file Insurance [facility] Address: [address] [place] [address] MEDICARE ADVANTAGE Care Teams Bilingual Speech Language Pathologist Relationship Specialty Start Date End Date Mikel Krueger MD [facility] - General 07/06/16
--- OUTSIDE RECORDS SUMMARY | 2024-09-28 07:45 | XMS_ITS | Data Portability ---
Author Organization [facility], [address] [place] [address] ([place]) Address [address] [place] [address] Care Team Providers Care Consular Officer Name Role Phone NEL CARLSON Primary Care Provider [phone] Assessment Encounter Date Assessment Date Assessment LastModified [...] C3 and C4 complement levels, anti-Urena and DENTAL ASSISTANT antibodies, frfr-vjkwnc-ujrdcs ed DNA antibody level, arthritis panel, CBC, [...] on this date of service including both xnqx-mc-fnzr and xwh-idnh-um-face time excluding any separately reportable services. nv Not available 09/10/2023 08:52:58 12/12/2023 12/12/2023 IMPRESSION: 1. PMR versus seronegative RA. 2. Osteoarthritis. 3. Visual blurring, likely related to steroid therapy. PLAN: 1. Patient is to see his medical secretary receptionist now at [facility] in [place]. 2. Increase prednisone to 10 mg daily. [...] available Not available Lab CBC 2023 024 [email or web address] [facility], [address] [place] [address], [id number], 05/21/2024 15:57:20 CMP, serum or plasma 2023 024 [facility], [address] [place] [address], [id number], 05/21/2024 15:57:20 ESR (erythroc yte sedimenta tion rate), blood 2023 024 [email or web address] [facility], [address] [place] [address], 70316, 05/21/2024 15:57:20 unlisted lab - CRP ([facility] only) 2023 024 [email or web address] [facility], [address] [place] [address], 34277, 05/21/2024 15:57:21 CBC 2023 024 [email or web address] [facility], [address] [place] [address], [id number], 05/21/2024 15:57:28 CMP, serum or plasma 2023 024 [facility], [address] [place] [address], 79589, 05/21/2024 15:57:28 ESR (erythroc yte sedimenta tion rate), blood 2023 024 [email or web address] [facility], [address] [place] [address], 71089, 05/21/2024 15:57:28 unlisted lab - CRP ([facility] only) 2023 024 [email or web address] [facility], [address] [place] [address], 42254, 05/21/2024 15:57:29 Referral None recorded. Procedures None recorded. Surgeries None recorded. Imaging None recorded. Medication Orders methotrex ate sodium 2.5 mg tablet 2023 024 [facility]armacy #[id number], [address] [place], [address], 12/12/2023 22:08:38 folic acid 1 mg tablet 2023 024 [facility]/Pharm[facility] #[id number], [address] [place], [address], 12/12/2023 22:08:38 Patient TargetsNo targets recorded. Patient InstructionsNo instructions recorded. Reason for Referral None Reported. Results Created Date Observation Date Name Description Value Unit Range Abnormal Flag Note LastModifiedBy Organization Detail LastModifiedTime 09/09/19 24 09/09/2023 CBC CBC Not Available [facility] [address] [place] [address], 50137, 09/09/2023 18:51:33 09/09/19 24 09/09/2023 CBC WBC 7.9 K/uL 4.8- 10.8 Not Available [facility] [address] [place] [address], 71937, 09/09/2023 18:51:33 09/09/19 24 09/09/2023 CBC RBC 4.65 M/uL 4.70-6 .10 low Not Available [facility] [address] [place] [address], 43607, 09/09/2023 18:51:33 09/09/19 24 09/09/2023 CBC HGB 14.1 g/dL 14.0-1 8.0 Not Available [facility] [address] [place] [address], 07336, 09/09/2023 18:51:33 09/09/19 24 09/09/2023 CBC HCT 42.4 % 42.0-5 2.0 Not Available [facility] [address] [place] [address], 09203, 09/09/2023 18:51:33 09/09/19 24 09/09/2023 CBC MCV 91.2 fL 80.0-9 4.0 Not Available [facility] [address] [place] [address], 67688, 09/09/2023 18:51:33 09/09/19 24 09/09/2023 CBC MCH 30.3 pg 27.0- 31.0 Not Available [facility] [address] [place] [address], [id number], 09/09/2023 18:51:33 09/09/19 24 09/09/2023 CBC MCHC 33.3 g/dL 32.0-3 6.0 Not Available [facility] [address] [place] [address], 80162, 09/09/2023 18:51:33 09/09/19 24 09/09/2023 CBC RDW-SD 48.1 fL 35.1 - 46.3 high Not Available [facility] [address] [place] [address], 25162, 09/09/2023 18:51:33 09/09/19 24 09/09/2023 CBC plt 384 K/uL 130-40 0 Not Available [facility] [address] [place] [address], 74099, 09/09/2023 18:51:33 09/09/19 24 09/09/2023 CBC MPV 9.7 fL 7.5- 11.8 Not Available [facility] [address] [place] [address], 77023, 09/09/2023 18:51:33 09/09/19 24 09/09/2023 ESR (eryt hrocy te sedim entat ion rate) , blood sed rate 49 mm/HR 0 - 20 high Not Available [facility] [address] [place] [address], 45790, 09/09/2023 19:15:35 09/09/19 24 09/09/2023 CMP, serum or plasm a comp. met. panel Not Available [facility] [address] [place] [address], 79842, 09/09/2023 19:42:14 09/09/19 24 09/09/2023 CMP, serum or plasm a sodium 139 mmol/ L 136-14 6 Not Available [facility] [address] [place] [address], 07808, 09/09/2023 19:42:14 09/09/19 24 09/09/2023 CMP, serum or plasm a potassium 4.5 mmol/ L 3.5-5. 1 Not Available [facility] [address] [place] [address], 68464, 09/09/2023 19:42:14 09/09/19 24 09/09/2023 CMP, serum or plasm a chloride 104 mmol/ L 98-110 Not Available [facility] [address] [place] [address], 80794, 09/09/2023 19:42:14 09/09/19 24 09/09/2023 CMP, serum or plasm a CO2 26 mEq/L 20-32 Not Available [facility] [address] [place] [address], 20546, 09/09/2023 19:42:14 09/09/19 24 09/09/2023 CMP, serum or plasm a anion gap 14 mmol/ L 10-22 Not Available [facility] [address] [place] [address], 55276, 09/09/2023 19:42:14 09/09/19 24 09/09/2023 CMP, serum or plasm a glucose 98 mg/dL 70-100 Not Available [facility] [address] [place] [address], 91198, 09/09/2023 19:42:14 09/09/19 24 09/09/2023 CMP, serum or plasm a calcium 9.7 mg/dL 8.4-10 .4 Not Available [facility] [address] [place] [address], 31417, 09/09/2023 19:42:14 09/09/19 24 09/09/2023 CMP, serum or plasm a total protein 7.4 g/dL 6.4-8. 3 Not Available [facility] [address] [place] [address], 81762, 09/09/2023 19:42:14 09/09/19 24 09/09/2023 CMP, serum or plasm a albumin 4.5 g/dL 3.5-5. 3 Not Available [facility] [address] [place] [address], 92491, 09/09/2023 19:42:14 09/09/19 24 09/09/2023 CMP, serum or plasm a ALP 98 U/L 44 - 127 Not Available [facility] [address] [place] [address], 66616, 09/09/2023 19:42:14 09/09/19 24 09/09/2023 CMP, serum or plasm a AST (SGOT) 22 U/L 10-40 Not Available [facility] [address] [place] [address], 31667, 09/09/2023 19:42:14 09/09/19 24 09/09/2023 CMP, serum or plasm a total bilirubin 0.3 mg/dL 0.2-1. 0 Not Available [facility] [address] [place] [address], 42781, 09/09/2023 19:42:14 09/09/19 24 09/09/2023 CMP, serum or plasm a ALT (SGPT) 32 U/L 8-35 Not Available [facility] [address] [place] [address], 15003, 09/09/2023 19:42:14 09/09/19 24 09/09/2023 CMP, serum or plasm a BUN 16 mg/dL 7-21 Not Available [facility] [address] [place] [address], 85454, 09/09/2023 19:42:14 09/09/19 24 09/09/2023 CMP, serum or plasm a creatinine 0.9 mg/dL 0.7-1. 3 Not Available [facility] [address] [place] [address], 82688, 09/09/2023 19:42:14 09/09/19 24 09/09/2023 CMP, serum or plasm a GFR(non-afri can bhutanese) 92 Not Available [facility] [address] [place] [address], 90777, 09/09/2023 19:42:14 09/09/19 24 09/09/2023 CMP, serum or plasm a GFR() 111 (INTEGRATED CIRCUIT FABRICATOR CAITLIN KIDNE Y DISEA SE HAS A GFR LESS THAN 60 ML/WI N/1.7 3 MM FOR A PERIO D OF THREE MONTH S OR MORE. ) Not Available [facility] [address] [place] [address], 87225, 09/09/2023 19:42:14 09/09/19 24 09/09/2023 C-carlene ctive prote in, quant itati ve, serum or plasm a CRP high Not Available [facility] [address] [place] [address], 17237, 09/09/2023 19:42:16 09/09/19 24 09/09/2023 C-carlene ctive prote in, quant itati ve, serum or plasm a CRP 1.4 mg/dL <0.4-0 .5 high Not Available [facility] [address] [place] [address], 52210, 09/09/2023 19:42:16 09/09/19 24 09/10/2023 C4 (comp lemen t), serum or plasm a complement C4 42 mg/dL 12-38 high Not Available [facility] [address] [place] [address], 90766, 09/10/2023 11:39:17 09/09/19 24 09/10/2023 sjogr en antib radha panel (ssa, ssb, ro, la), serum sjogren's Ab (ssa Not Available [facility] [address] [place] [address], 46101, 09/10/2023 11:39:21 09/09/19 24 09/10/2023 sjogr en antib radha panel (ssa, ssb, ro, la), serum *ssa result <0.2 ai 0.0-0. 9 Not Available [facility] [address] [place] [address], 77401, 09/10/2023 11:39:21 09/09/19 24 09/10/2023 sjogr en antib radha panel (ssa, ssb, ro, la), serum *ssb result <0.2 ai 0.0-0. 9 Not Available [facility] [address] [place] [address], 37992, 09/10/2023 11:39:21 09/09/19 24 09/10/2023 urena Ab + national sales associate Ab, serum sm/national sales associate antibodies Not Available [facility] [address] [place] [address], 54016, 09/10/2023 11:39:23 09/09/19 24 09/10/2023 urena Ab + national sales associate Ab, serum sm antibodies <0.2 ai 0.0-0. 9 Not Available [facility] [address] [place] [address], 70516, 09/10/2023 11:39:23 09/09/19 24 09/10/2023 urena Ab + national sales associate Ab, serum national sales associate antibody. 0.7 ai 0.0-0. 9 Not Available [facility] [address] [place] [address], 55505, 09/10/2023 11:39:23 09/09/19 24 09/10/2023 C3 (comp lemen t), serum or plasm a complement C3 175 mg/dL 82-167 high Not Available [facility] [address] [place] [address], 68560, 09/10/2023 11:39:25 09/09/19 24 09/09/2023 arthr itis panel uric acid 4.2 mg/dL 4.4-7. 6 low Not Available [facility] [address] [place] [address], 29739, 09/12/2023 12:18:18 09/09/19 24 09/09/2023 arthr itis panel rf <3.5 IU/mL <3.5-1 4 Not Available [facility] [address] [place] [address], 01793, 09/12/2023 12:18:18 09/09/19 24 09/09/2023 arthr itis panel ccp antibody, IgG <0.54 U/mL <=4.9 Not Available [facility] [address] [place] [address], 72257, 09/12/2023 12:18:18 09/09/19 24 09/12/2023 arthr itis panel arthritis panel Not Available [facility] [address] [place] [address], 09679, 09/12/2023 12:18:18 09/09/19 24 09/12/2023 arthr itis panel ENRIQUE screen NEGATI VE negati ve Perfo rmed by Bio-R ad enzym e immun oassa y Not Available [facility] [address] [place] [address], 61465, 09/12/2023 12:18:18 09/09/19 24 09/16/2023 DNA doubl e stran d Ab, QL, serum DNA Ab; double stranded NEGATI VE negati ve Not Available [facility] [address] [place] [address], 98257, 09/16/2023 15:13:20 09/09/19 24 09/18/2023 hla-B 27, blood hla-B27, DNA typing Not Available [facility] [address] [place] [address], 67975, 09/18/2023 11:38:39 09/09/19 24 09/18/2023 hla-B 27, [...] HLA Lab CLIA ID Patito [id number] THis test was perfo rmed using Polym erase Chain React ion (PCR) and Seque nce Speci fic Oligo nucle otide Probe s (SSOP ) techn ique. Seque nce Based Typin g (SBT) may be used as a suppl ement al metho d when neces nader. If you have quest ions, plejustyna e call HLA custo darinel servi ce at [phone] or email at [email or web address] or.[email or web address]. Not Available [facility] [address] [place] [address], 10486, 09/18/2023 11:38:39 09/09/19 24 09/09/2023 arthr itis panel arthritis panel Not Available [facility] [address] [place] [address], 03577, 09/09/2023 20:07:53 09/09/19 24 09/09/2023 arthr itis panel uric acid 4.2 mg/dL 4.4-7. 6 low Not Available [facility] [address] [place] [address], 03695, 09/09/2023 20:07:53 09/09/19 24 09/09/2023 arthr itis panel ENRIQUE screen PENDIN G Not Available [facility] [address] [place] [address], 63068, 09/09/2023 20:07:53 09/09/19 24 09/09/2023 arthr itis panel rf <3.5 IU/mL <3.5-1 4 Not Available [facility] [address] [place] [address], 20760, 09/09/2023 20:07:53 09/09/19 24 09/09/2023 arthr itis panel ccp antibody, IgG <0.54 U/mL <=4.9 Not Available [facility] [address] [place] [address], 32252, 09/09/2023 20:07:53 09/09/19 24 09/09/2023 arthr itis panel arthritis panel Not Available [facility] [address] [place] [address], 30315, 09/09/2023 19:42:18 09/09/19 24 09/09/2023 arthr itis panel uric acid 4.2 mg/dL 4.4-7. 6 low Not Available [facility] [address] [place] [address], 31580, 09/09/2023 19:42:18 09/09/19 24 09/09/2023 arthr itis panel ENRIQUE screen PENDIN G Not Available [facility] [address] [place] [address], 65405, 09/09/2023 19:42:18 09/09/19 24 09/09/2023 arthr itis panel rf PENDIN G Not Available [facility] [address] [place] [address], 80017, 09/09/2023 19:42:18 09/09/19 24 09/09/2023 arthr itis panel ccp antibody, IgG PENDIN G Not Available [facility] [address] [place] [address], 38164, 09/09/2023 19:42:18 09/09/19 24 09/09/2023 urena Ab + national sales associate Ab, serum sm and sm/national sales associate antibodies Not Available [employer], [place] [address] [address], [address], 05/14/2024 06:38:12 09/09/19 09/09/2023 urena Ab + national sales associate Ab, serum sm antibodies <0.2 ai 0.0-0. 9 Not Available [email or web address] [address], [address], 05/14/2024 06:38:12 09/09/19 24 09/09/2023 urena Ab + national sales associate Ab, serum national sales associate antibody 0.7 ai 0.0-0. 9 Not Available [email or web address] [address] [facility] [address], [place], [address], 05/14/2024 06:38:12 09/09/19 24 09/09/2023 ESR (eryt hrocy te sedim entat ion rate) , blood sed rate 49 mm/HR 0 - 20 high Not Available [facility] - [address], [place], [address], 05/14/2024 06:38:12 09/09/19 24 09/09/2023 C-carlene ctive prote in, quant itati ve, serum or plasm a CRP Not Available [facility] [place] [address], [address], 05/14/2024 06:38:11 09/09/19 24 09/09/2023 C-carlene ctive prote in, quant itati ve, serum or plasm a CRP 1.4 mg/dL <0.4-0 .5 high Not Available [facility] [place] [address], [place], [address], 05/14/2024 06:38:11 09/09/19 24 09/09/2023 C4 (comp lemen t), serum or plasm a complement C4 42 mg/dL 12-38 high Not Available [facility] [address], [place], [address], 05/14/2024 06:38:11 09/09/19 24 09/09/2023 C3 (comp lemen t), serum or plasm a complement C3 175 mg/dL 82-167 high Not Available [facility]) [address] [facility], [place], [address], 05/14/2024 06:38:10 09/09/19 24 09/09/2023 DNA doubl [...] hla lab clia id patito cobb [id number] this test was perfo rmed using polym erase chain react ion (PCR) and seque nce speci fic oligo nucle otide probe s (ssop ) techn ique. seque nce based typin g (sbt) may BE used a suppl ement al metho d when neces nader. if you have quest ions, pleas e call [facility] custo darinel servi ce at [phone] or email at [email or web address] [email or web address]. ----- Not Available Not Available [...] CMP, serum or plasm a GFR;non-afri can bhutanese 92 Not Available Not Available 05/14/2024 06:37:58 09/09/19 24 09/09/2023 CMP, serum or plasm a GFR; 111 (grader meat caitlin kidne y disea se has A [...] Address Organization Details Recorded Time Hyperuricem ia 68868464 Active 2023 [facility] 12:55:20 Mechanical low back pain 000414837 Active 2023 [facility] 4 12:55:20 Pain of bilateral hands 6986503269689 9109 Active 2023 Onesimo Boswell [facility] 4 17:18:47 Pain of multiple joints 61361357 Active 2023 Onesimo Boswell [facility] 4 17:23:41 Osteoarthri tis 711182160 Active 2023 Kapil Ramirez MD [address] [place] [address], [phone] 3, [facility] 4 18:36:54 Low back pain 546876001 Active 2023 Kapil Ramirez MD [address] [place] [address], [phone] [address], [facility] 4 18:37:01 C-reactive protein above reference range 1728685487838 04 Active 2023 Kapil Ramirez MD [address] [place] [address], 19483-846 3, [facility] 4 18:37:17 Seronegativ e rheumatoid arthritis 373765935 Active 20[facility] 4 11:38:53 Notes:Some problems listed i n Documents: #[id number], #[id number], #[id number], #[id number], #[id number] could not be added to this patient's chart. Please review these documents and add these problems to the patient's chart manually as needed. Problem Notes None recorded. Medical Equipment None Reported. Allergies Allergen ID Allergen Name Allergen Category Reaction Reaction Severity Criticality Documentation Date Start Date Code Code System Note Provider Name and Address Organization Details Recorded Time 4154232 Product containin g 3-hydroxy -3-methyl glutaryl- coenzyme A reductase inhibitor (product) medicatio n myalgias (muscle pain) Not available Not available 09/09/2023 85279 009 [facility]ED [facility] 4 16:28:42 Medications Name Sig Start Date Stop Date [...] Updated DateTime 4 185.42 cm 34.7 kg/m2 119193. 79 g 97 /min 96 % 96 % 8 144 mm[Hg] 90 mm[Hg] [facility] 4 16:28:01 Date Recorded Body height Body mass index (BMI) Body weight Heart rate Oxygen saturation Oxygen saturation in Arterial blood by Pulse oximetry Pain severity - 0-10 verbal numeric rating [Score] - Reported Systolic blood pressure Diastolic blood pressure Provider Name and Address Organization Details Last Updated DateTime 4 185.42 cm 34.3 kg/m2 419945. 02 g 87 /min 97 % 97 % 4 136 mm[Hg] 88 mm[Hg] [facility] 4 11:02:29 Date Recorded Body height Body mass index (BMI) Body weight Heart rate Oxygen saturation Oxygen saturation in Arterial blood by Pulse oximetry Pain severity - 0-10 verbal numeric rating [Score] - Reported Systolic blood pressure Diastolic blood pressure Provider Name and Address Organization Details Last Updated DateTime 5 185.42 cm 34.5 kg/m2 913716. 76 g 97 /min 96 % 96 % 0 140 mm[Hg] 82 mm[Hg] Chanelle Duke [facility] 5 12:07:17 Social History None recorded. Functional Status None recorded. Mental Status None recorded. Family History Relationship Description Onset Age of this Age Resolved Age Notes LastModified by Organization Details LastModified Time Father Malignant neoplasm of lung [email or web address] Not available 2023 16:29:23 Mother Malignant tumor of breast [email or web address] Not available 2023 16:29:34 Medical History No medical history recorded. Immunizations Vaccine Type Date Status Note Provider Nam e and Address Organization Details Recorded Time Influenza, split virus, quadrivalent, preservative 7 [facility] 09/09/2023 16:28:16 Influenza, split virus, quadrivalent, preservative 6 [facility] 09/09/2023 16:28:16 Past Encounters Encounter ID Performer Location Encounter Start Date Encounter Closed Date Diagnosis/Indication Diagnosis SNOMED-CT Code Diagnosis ICD10 Code Diagnosis Note [id number] Kapil Ramirez MD [address] [place] [address] [facility] [place] [address] [place] [phone] 09/09/2023 15:46:58 09/19/2023 15:24:05 Pain of multiple joints 39487794 M25.50 Osteoarthritis 686317651 M19.90 Low back pain 890884876 M54.50 C-reactive protein above reference range 6684243123 62800 R79.82 [facility] current use of non-steroidal anti-inflammatory drug 4726678665 61757 Z79.1 Long-term current use of steroid 675607310 Z79.52 [id number] Kapil Ramirez MD [facility] ([place]) [address] [place] [phone] 12/12/2023 10:21:06 12/17/2023 08:02:06 Pain of multiple joints 86101470 M25.50 Seronegati ve rheumatoid arthritis 433161944 M06.00 Polymyalgi a rheumatica 04991198 M35.3 Mechanical low back pain 568633084 M54.50 Hyperuricemia 76131756 E 79.0 Long-term current use of steroid 106650145 Z79.52 [id number] Kapil Ramirez MD [facility] ([place]) [address] [place] [address] 05/28/2024 11:57:14 05/30/2024 07:00:49 Seronegative rheumatoid arthritis 211684784 M06.00 Osteoarthritis 717503390 M19.90 Mechanical low back pain 741481816 M54.50 Hyperuricemia 01376074 E 79.0 Health Concerns Section Related Observation LastModified by Organization Detai ls LastModified Time None Recorded Concern Status LastModified by Organization Details LastModified Time None Recorded Advance Directives Directive None Recorded Payers Insurance Date Sequence Insurance Name Policy Number Policy Frazier Covered Member ID Frazier Member ID Guarantor Name 05/30/2024 1 [facility] (MEDICARE REPLACEMENT/A DVANTAGE - HMO) [id number] Odilon Yadira [id number] [place] May 08/24/2024 2 [place] Odilon Yadira [id number] [facility] 09/09/2023 3 [place] [facility] [id number] Odilon May Notes Date Note Type Note [...] underlying autoimmune disease.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 He admits gruh-cdz-dieuyhd he will use up to 1 g [...] the patient s past medical history and Citizen Of [employer] [place] [employer] intake form.luis f Ramirez MD [address] [place] [address], [phone], [facility] 09/10/2023 21:35:37 12/12/2023 text/html The patient [...] gross hematuria.luis f Ramirez MD [address] [place] [address], [phone], [facility] 12/16/2023 22:41:49 05/28/2024 text/html The patient [...] Appetite is normal.antonio Ramirez MD [address] [place] [address], [phone], [facility] 05/29/2024 17:51:19
--- OUTSIDE RECORDS SUMMARY | 2024-09-28 07:45 | XMS_ITS | Referral Summary ---
Author Organization [facility] Address [address] [place] [address] Care Team Providers Care Racket Stringer Name Role Phone Mikel Krueger MD Primary Care Provider [phone] Allergies Active Allergy Reactions Criticality Noted Date Comments Ezetimibe Muscle pain High Reaction: myalgias, Hmpdbrg-Gak-Upr Reductase Inhibitors Muscle pain High Reaction: myalgias, [...] on file Legal Sex Male 12:50 AM NEUROPHYSIOLOGICAL TECHNICIAN Gender Identity Not on file Sexual Orientation Not on file Last Filed Vital Signs Vital Sign Reading Time Taken Comments Blood Pressure 155/94 07/25/2018 8:36 AM NEUROPHYSIOLOGICAL TECHNICIAN Pulse 106 07/25/2018 8:36 AM NEUROPHYSIOLOGICAL TECHNICIAN Temperature - - Respiratory Rate - - Oxygen Saturation - - Inhaled Oxygen Concentration - - Weight 118.8 kg (262 lb) 07/25/2018 8:36 AM NEUROPHYSIOLOGICAL TECHNICIAN Height 185.4 cm (6' 1 ) 07/25/2018 8:36 AM NEUROPHYSIOLOGICAL TECHNICIAN Body Mass Index 34.57 07/25/2018 8:36 AM NEUROPHYSIOLOGICAL TECHNICIAN Plan of Treatment Not on file Insurance [employer] MEDICARE ADVANTAGE Care Teams Racket Stringer Relationship Specialty Start Date End Date Mikel Krueger MD PCP - General 07/06/16
--- OUTSIDE RECORDS SUMMARY | 2024-09-28 07:46 | XMS_ITS | Clinical Summary ---
Author Organization [facility] Address [address] [place] [address] Care Team Providers Care Whittling Room Operator Name Role Phone Mikel Krueger MD Primary Care Provider Allergies Active Allergy Reactions Criticality Noted Date [...] Vaccines (1 of 2) 11/10/2013 COVID-19 Vaccine ( - 2023-2 5 season) 2024 RSV Immunization [...] this topic Medical Devices Implanted Type Area Financial Management Device Identifier Shelf Expiration Date Model / Serial / Lot Cement Simplex Hv W/Gentamicin - [id number] Implanted:Qty: 1 on 02/09/2019 by Jelani De Leon MD at [facility] Right: Knee [employer] 02/17/2020 6195-1-010 / / [id number] Cement Simplex Hv W/Gentamicin - [id number] Implanted:Qty: 1 on 02/09/2019 by Jelani De Leon MD at [facility] Right: Knee [employer] 02/17/2020 6195-1-010 / / [id number] Attune Femoral Posterior Stabilized Size 6 Right Cemented Implanted:Qty: 1 on 02/09/2019 by Jelani De Leon MD at [facility] Right: Knee 11/16/2028 1504-03-08 6 / / [id number] Attune Knee System Tibial Base Rotating Platform Implanted:Qty: 1 on 02/09/2019 by Jelani De Leon MD at [facility] Right: Knee 07/17/2028 6 / / [id number] Attune Patella Medialized Dome Implanted:Qty: 1 on 02/09/2019 by Jelani De Leon MD at [facility] Right: Knee 04/18/2023 8 / / [id number] Attune Tibial Insert Rotating Platform Posterior Stabilized Implanted:Qty: 1 on 02/09/2019 by Jelani De Leon MD at [facility] Right: Knee 07/17/2021 0 / / [id number] Explanted Type Area Financial Management Device Identifier Shelf Expiration Date Model / Serial / Lot Drill Bit Synthes 2.5 Qc 110mm Gold - [id number] Explanted:Qty: 1 on 02/09/2019 at [facility] Right: Knee [employer] 310.25 / / Insurance [facility] Advance Directives * Full Code (Latest Code Status on File) Date Activated Date Inactivated Comments 02/09/2019 10:30 AM 02/11/2019 1:10 PM Care Teams Whittling Room Operator Relationship Specialty Start Date End Date Mikel Krueger MD [address] [place] [address] PCP - General INTERNAL MEDICINE 01/23/19
--- OUTSIDE RECORDS SUMMARY | 2024-09-28 07:46 | XMS_ITS | Clinical Summary ---
Author Organization [facility] [employer] Address [address] [place] [address] Care Team Providers Care Rib Cutter Name Role Phone Mikel Krueger MD Primary Care Provider Source Comments [facility] [employer],non-owned Affiliates and Associated Physician Practices is amultiple site organization consisting of ambulatory clinics and hospital sitesin [place], [place], [place] and [place]. This disclosure is being madepursuant to the Care Everywhere program and may not contain all information available regarding this patient. Last updated 18.[facility] [employer] Allergies Active Allergy Reactions Criticality Noted Date [...] by mouth once daily Active HYDROcodone-acet aminophen ([place]) 5-325 MG tabletIndication s:Prostate cancer (HCC) Take [...] on file Legal Sex Male 5:50 AM TRAINING COORDINATOR Gender Identity Not on file Sexual Orientation Not on file Last Filed Vital Signs Vital Sign Reading Time Taken Comments Blood Pressure 133/83 06/05/2023 12:08 PM TRAINING COORDINATOR Pulse 91 06/05/2023 12:08 PM TRAINING COORDINATOR Temperature 36.6 C (97.9 F) 06/05/2023 12:08 PM TRAINING COORDINATOR Respiratory Rate 18 03/01/2023 10:49 AM CDT Oxygen Saturation 95% 06/05/2023 12:08 PM TRAINING COORDINATOR Inhaled Oxygen Concentration - - Weight 112 kg (247 lb) 06/05/2023 12:08 PM TRAINING COORDINATOR Height 185.4 cm (6' 1 ) 06/05/2023 12:08 PM TRAINING COORDINATOR Body Mass Index 32.59 06/05/2023 12:08 PM TRAINING COORDINATOR Plan of Treatment Health Maintenance Due Date [...] 7 - 26 mg/dL 02/05/2023 11:[address] [facility] Creatinine 0.94 0.71 - 1.16 mg/dL 02/05/2023 11:[address] [facility] Sodium 141 136 - 145 mmol/L 02/05/2023 11:[address] [facility] Potassium 4.1 3.5 - 4.5 mmol/L 02/05/2023 11:[address] [facility] Chloride 106 98 - 107 mmol/L 02/05/2023 11:[address] [facility] CO2 28 22 - 29 mmol/L 02/05/2023 11:[address] [facility] Glucose 105 70 - 115 mg/dL 02/05/2023 11:[address] [facility] Calcium 9.7 8.4 - 10.2 mg/dL 02/05/2023 11:[address] [facility] Anion Gap 7 6 - 16 02/05/2023 11:[address] [facility] BUN/Creatinine Ratio 17 7 - 23 02/05/2023 11:[address] [facility] Osmolality Calculated 294 270 - 300 mOsm/kg 02/05/2023 11:[address] [facility] eGFR by CKD-EPI >90 >=90 mL/min/1.7 3 m2 02/05/2023 11:[address] [facility] Blood BLOOD SPECIMEN / Unknown Lab Venipuncture / Unknown 02/05/2023 11:05 AM [facility] 02/05/2023 11:25 AM [facility] Lamberto Galindo MD LAB - CHEMISTRY ORDERABLES Final Result [facility] [address] [place] [address], [facility] [place] [phone] from Last 3 Months or Most Recently Relevant to Health Maintenance Insurance [facility] MANAGED MEDICARE ADV Advance Directives * Full Code (Latest Code Status on File) Date Activated Date Inactivated Comments 02/19/2023 8:00 PM 02/20/2023 12:32 PM Care Teams Rib Cutter Relationship Specialty Start Date End Date Mikel Krueger MD [address] [place] [address] PCP - General 09/19/21
== END 2024-09-28 07:40 | disposition home or self-care (01) ==
LOC: CHSIMG 07:43
PROVIDERS: PCP Internal Medicine; Visit Provider Internal Medicine
DX: R82.71 Bacteriuria (principal); Z85.46 Personal history of malignant neoplasm of prostate
CPT/HCPCS: 74178; Q9967

== ENCOUNTER 2024-11-27 07:52 | Outpatient (CLI) | payer MEDICARE, SELFPAY ==
--- NOTE | ~2024-11-27 | XR_ITS ---
EXAM/ PROCEDURE: XR ankle RT 2V - 11/27/2024 9:20 CDT HISTORY: 59 years old Male with BL foot pain/BL leg weakness/ankle pain COMPARISON: None available TECHNIQUE: Two view(s) FINDINGS/ IMPRESSION: There are no fractures or dislocations.Joint space narrowing, subchondral sclerosis, subchondral cyst formation and osteophyte formation, compatible with mild osteoarthritis. Calcaneal enthesopathy. Reviewed, dictated and finalized at location A.
--- NOTE | ~2024-11-27 | XR_ITS ---
EXAM/ PROCEDURE: XR hand RT min 3V - 11/27/2024 9:00 CDT HISTORY: 59 years old Male with chronic BL Hand wrist pain in all joints, hx arthritis COMPARISON: None available TECHNIQUE: Three view(s) FINDINGS/ IMPRESSION: There are no fractures or dislocations.Joint space narrowing, subchondral sclerosis, subchondral cyst formation and osteophyte formation, compatible with mild osteoarthritis. Reviewed, dictated and finalized at location A.
--- NOTE | ~2024-11-27 | XR_ITS ---
EXAM/ PROCEDURE: XR foot RT min 3V - 11/27/2024 9:15 CDT HISTORY: 59 years old Male with chronic BL foot pain ankle pain, burning plantar side COMPARISON: None available TECHNIQUE: Four view(s) FINDINGS/ IMPRESSION: There are no fractures or dislocations.Joint space narrowing, subchondral sclerosis, subchondral cyst formation and osteophyte formation, compatible with mild osteoarthritis. Calcaneal enthesopathy. Reviewed, dictated and finalized at location A.
--- NOTE | ~2024-11-27 | US_ITS ---
Ankle Brachial Index with Ultrasound Dopplers and Pulse Volume Recordings Technique: Pressures in the arm and lower extremity were obtained. Additionally, arterial and pulse v olume waveforms were obtained bilaterally. Findings: Segmental pressures Right posterior tibial: 184 Right dorsalis pedis: 189 Left posterior tibial: 191 Left dorsalis pedis: 179 There are triphasic waveforms bilaterally, with the exception of waveforms in the great toe bilateral ly which demonstrates monophasic waveforms. OSWALD Right 1.16 Left 1.17 TBI Right 1.29 Left 1.15 Impression: No sonographic evidence to suggest the presence of peripheral arterial disease, as detail ed above. Reviewed, dictated and finalized at location A. Impression: No sonographic evidence to suggest the presence of peripheral arter ial disease, as detailed above.
--- NOTE | ~2024-11-27 | XR_ITS ---
EXAM/ PROCEDURE: XR wrist RT min 3V - 11/27/2024 9:05 CDT HISTORY: 59 years old Male with chronic BL Hand wrist pain in all joints, hx arthritis COMPARISON: None available TECHNIQUE: Three view(s) FINDINGS/ IMPRESSION: There are no fractures or dislocations.Joint space narrowing, subchondral sclerosis, subchondral cyst formation and osteophyte formation, compatible with mild osteoarthritis. Reviewed, dictated and finalized at location A.
--- NOTE | ~2024-11-27 | XR_ITS ---
EXAM/ PROCEDURE: XR foot LT min 3V - 11/27/2024 9:22 CDT HISTORY: 59 years old Male with chronic BL foot pain ankle pain, burning plantar side COMPARISON: None available TECHNIQUE: Three view(s) FINDINGS/ IMPRESSION: There are no fractures or dislocations.Joint space narrowing, subchondral sclerosis, subchondral cyst formation and osteophyte formation, compatible with mild osteoarthritis. Calcaneal enthesopathy. Reviewed, dictated and finalized at location A.
--- NOTE | ~2024-11-27 | XR_ITS ---
EXAM/ PROCEDURE: XR ankle LT 2V - 11/27/2024 9:20 CDT HISTORY: 59 years old Male with chronic BL feet pain, leg weakness, pain when WB ankles COMPARISON: None available TECHNIQUE: Three view(s) FINDINGS/ IMPRESSION: There are no fractures or dislocations.Joint space narrowing, subchondral sclerosis, subchondral cyst formation and osteophyte formation, compatible with mild osteoarthritis. Calcaneal enthesopathy. Reviewed, dictated and finalized at location A.
--- NOTE | ~2024-11-27 | XR_ITS ---
EXAM/ PROCEDURE: XR hand LT min 3V, XR wrist LT min 3V - 11/27/2024 8:42 CDT HISTORY: 59 years old Male with chronic BL Hand wrist pain in all joints COMPARISON: None available TECHNIQUE: Three view(s) each FINDINGS/ IMPRESSION: Status post ORIF of third metacarpal carpal carpal bones and distal radius. Intact hardware and no lo osening. There are no fractures or dislocations.Joint space narrowing, subchondral sclerosis, subchondral cyst formation and osteophyte formation, compatible with moderate osteoarthritis. Reviewed, dictated and finalized at location A.
--- OUTSIDE RECORDS SUMMARY | 2024-11-27 07:57 | XMS_ITS | Data Portability ---
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 nv Not available 09/10/2023 08:52:58 12/12/2023 12/12/2023 IMPRESSION: 1. PMR versus seronegative RA. 2. Osteoarthritis. 3. Visual blurring, likely related to steroid therapy. PLAN: 1. 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 2. Increase prednisone to 10 mg daily. [...] Details Last Modified Time Details Appointments None recorded. Lab CBC 2023 024 [email or web address] [facility], [address] [place] [address], 8[address]26, 5 15:57:20 CMP, serum or plasma 2023 024 [email or web address] [facility], [address] [place] [address], 46655, 5 15:57:20 ESR (erythrocyt e sedimentati on rate), blood 2023 024 [email or web address] [facility], [address] [place] [address], 98560, 5 15:57:20 unlisted lab - CRP ([facility] only) 2023 024 [facility], [address] [place] [address], 68948, 5 15:57:21 CBC 2023 024 [email or web address] [facility], [address] [place] [address], 52886, 5 15:57:28 CMP, serum or plasma 2023 024 [facility], [address] [place] [address], 48748, 5 15:57:28 ESR (erythrocyt e sedimentati on rate), blood 2023 024 [email or web address] [facility], [address] [place] [address], 19988, 5 15:57:28 unlisted lab - CRP ([facility] only) 2023 024 [email or web address] [facility], [address] [place] [address], 10458, 15:57:29 Referral None recorded. Procedures None recorded. Surgeries None recorded. Imaging None recorded. Medication Orders methotrexat e sodium 2.5 mg tablet 2023 024 [email or web address] #[id number], [address] [place], [address], 5 13:11:06 folic acid 1 mg tablet 2023 024 [email or web address] #[id number], [address] [place], [address], 5 13:11:20 Patient TargetsNo targets recorded. Patient InstructionsNo instructions recorded. Reason for Referral None Reported. Results Created Date Observation Date Name Description Value Unit Range Abnormal Flag Note LastModifiedBy Organization Detail LastModifiedTime 09/09/19 24 09/09/2023 CBC CBC Not Available [facility] [address] [place] [address], 09621, 09/09/2023 18:51:33 09/09/19 24 09/09/2023 CBC WBC 7.9 K/uL 4.8- 10.8 Not Available [facility] [address] [place] [address], 77158, 09/09/2023 18:51:33 09/09/19 24 09/09/2023 CBC RBC 4.65 M/uL 4.70-6 .10 low Not Available [facility] [address] [place] [address], 63079, 09/09/2023 18:51:33 09/09/19 24 09/09/2023 CBC HGB 14.1 g/dL 14.0-1 8.0 Not Available [facility] [address] [place] [address], 07927, 09/09/2023 18:51:33 09/09/19 24 09/09/2023 CBC HCT 42.4 % 42.0-5 2.0 Not Available [facility] [address] [place] [address], 48040, 09/09/2023 18:51:33 09/09/19 24 09/09/2023 CBC MCV 91.2 fL 80.0-9 4.0 Not Available [facility] [address] [place] [address], 56424, 09/09/2023 18:51:33 09/09/19 24 09/09/2023 CBC MCH 30.3 pg 27.0- 31.0 Not Available [facility] [address] [place] [address], 75293, 09/09/2023 18:51:33 09/09/19 24 09/09/2023 CBC MCHC 33.3 g/dL 32.0-3 6.0 Not Available [facility] [address] [place] [address], 72888, 09/09/2023 18:51:33 09/09/19 24 09/09/2023 CBC RDW-SD 48.1 fL 35.1 - 46.3 high Not Available [facility] [address] [place] [address], 13834, 09/09/2023 18:51:33 09/09/19 24 09/09/2023 CBC plt 384 K/uL 130-40 0 Not Available [facility] [address] [place] [address], 77640, 09/09/2023 18:51:33 09/09/19 24 09/09/2023 CBC MPV 9.7 fL 7.5- 11.8 Not Available [facility] [address] [place] [address], 86255, 09/09/2023 18:51:33 09/09/19 24 09/09/2023 ESR (eryt hrocy te sedim entat ion rate) , blood sed rate 49 mm/HR 0 - 20 high Not Available [facility] [address] [place] [address], 61086, 09/09/2023 19:15:35 09/09/19 24 09/09/2023 CMP, serum or plasm a comp. met. panel Not Available [facility] [address] [place] [address], 48723, 09/09/2023 19:42:14 09/09/19 24 09/09/2023 CMP, serum or plasm a sodium 139 mmol/ L 136-14 6 Not Available [facility] [address] [place] [address], 28459, 09/09/2023 19:42:14 09/09/19 24 09/09/2023 CMP, serum or plasm a potassium 4.5 mmol/ L 3.5-5. 1 Not Available [facility] [address] [place] [address], 75417, 09/09/2023 19:42:14 09/09/19 24 09/09/2023 CMP, serum or plasm a chloride 104 mmol/ L 98-110 Not Available [facility] [address] [place] [address], 00503, 09/09/2023 19:42:14 09/09/19 24 09/09/2023 CMP, serum or plasm a CO2 26 mEq/L 20-32 Not Available [facility] [address] [place] [address], 24511, 09/09/2023 19:42:14 09/09/19 24 09/09/2023 CMP, serum or plasm a anion gap 14 mmol/ L 10-22 Not Available [facility] [address] [place] [address], 22723, 09/09/2023 19:42:14 09/09/19 24 09/09/2023 CMP, serum or plasm a glucose 98 mg/dL 70-100 Not Available [facility] [address] [place] [address], 33705, 09/09/2023 19:42:14 09/09/19 24 09/09/2023 CMP, serum or plasm a calcium 9.7 mg/dL 8.4-10 .4 Not Available [facility] [address] [place] [address], 56309, 09/09/2023 19:42:14 09/09/19 24 09/09/2023 CMP, serum or plasm a total protein 7.4 g/dL 6.4-8. 3 Not Available [facility] [address] [place] [address], 71613, 09/09/2023 19:42:14 09/09/19 24 09/09/2023 CMP, serum or plasm a albumin 4.5 g/dL 3.5-5. 3 Not Available [facility] [address] [place] [address], 28232, 09/09/2023 19:42:14 09/09/19 24 09/09/2023 CMP, serum or plasm a ALP 98 U/L 44 - 127 Not Available [facility] [address] [place] [address], 70025, 09/09/2023 19:42:14 09/09/19 24 09/09/2023 CMP, serum or plasm a AST (SGOT) 22 U/L 10-40 Not Available [facility] [address] [place] [address], 55350, 09/09/2023 19:42:14 09/09/19 24 09/09/2023 CMP, serum or plasm a total bilirubin 0.3 mg/dL 0.2-1. 0 Not Available [facility] [address] [place] [address], 92916, 09/09/2023 19:42:14 09/09/19 24 09/09/2023 CMP, serum or plasm a ALT (SGPT) 32 U/L 8-35 Not Available [facility] [address] [place] [address], 17103, 09/09/2023 19:42:14 09/09/19 24 09/09/2023 CMP, serum or plasm a BUN 16 mg/dL 7-21 Not Available [facility] [address] [place] [address], 87558, 09/09/2023 19:42:14 09/09/19 24 09/09/2023 CMP, serum or plasm a creatinine 0.9 mg/dL 0.7-1. 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 ) Not Available [facility] [address] [place] [address], 30680, 09/09/2023 19:42:14 09/09/19 24 09/09/2023 C-carlene ctive prote in, quant itati ve, serum or plasm a CRP high Not Available [facility] [address] [place] [address], 31216, 09/09/2023 19:42:16 09/09/19 24 09/09/2023 C-carlene ctive prote in, quant itati ve, serum or plasm a CRP 1.4 mg/dL <0.4-0 .5 high Not Available [facility] [address] [place] [address], 58515, 09/09/2023 19:42:16 09/09/19 24 09/10/2023 C4 (comp lemen t), serum or plasm a complement C4 42 mg/dL 12-38 high Not Available [facility] [address] [place] [address], 19259, 09/10/2023 11:39:17 09/09/19 24 09/10/2023 sjogr en antib radha panel (ssa, ssb, ro, la), serum sjogren's Ab (ssa Not Available [facility] [address] [place] [address], 03855, 09/10/2023 11:39:21 09/09/19 24 09/10/2023 sjogr en antib radha panel (ssa, ssb, ro, la), serum *ssa result <0.2 ai 0.0-0. 9 Not Available [facility] [address] [place] [address], 79506, 09/10/2023 11:39:21 09/09/19 24 09/10/2023 sjogr en antib radha panel (ssa, ssb, ro, la), serum *ssb result <0.2 ai 0.0-0. 9 Not Available [facility] [address] [place] [address], 70613, 09/10/2023 11:39:21 09/09/19 24 09/10/2023 urena Ab + recoating machine operator Ab, serum sm/recoating machine operator antibodies Not Available [facility] [address] [place] [address], 79782, 09/10/2023 11:39:23 09/09/19 24 09/10/2023 urena Ab + recoating machine operator Ab, serum sm antibodies <0.2 ai 0.0-0. 9 Not Available [facility] [address] [place] [address], 20711, 09/10/2023 11:39:23 09/09/19 24 09/10/2023 urena Ab + recoating machine operator Ab, serum recoating machine operator antibody. 0.7 ai 0.0-0. 9 Not Available [facility] [address] [place] [address], 72233, 09/10/2023 11:39:23 09/09/19 24 09/10/2023 C3 (comp lemen t), serum or plasm a complement C3 175 mg/dL 82-167 high Not Available [facility] [address] [place] [address], 26178, 09/10/2023 11:39:25 09/09/19 24 09/09/2023 arthr itis panel uric acid 4.2 mg/dL 4.4-7. 6 low Not Available [facility] [address] [place] [address], 31024, 09/12/2023 12:18:18 09/09/19 24 09/09/2023 arthr itis panel rf <3.5 IU/mL <3.5-1 4 Not Available [facility] [address] [place] [address], 81466, 09/12/2023 12:18:18 09/09/19 24 09/09/2023 arthr itis panel ccp antibody, IgG <0.54 U/mL <=4.9 Not Available [facility] [address] [place] [address], 91311, 09/12/2023 12:18:18 09/09/19 24 09/12/2023 arthr itis panel arthritis panel Not Available [facility] [address] [place] [address], 97442, 09/12/2023 12:18:18 09/09/19 24 09/12/2023 arthr itis panel ENRIQUE screen NEGATI VE negati ve Perfo rmed by Bio-R ad enzym e immun oassa y Not Available [facility] [address] [place] [address], 86485, 09/12/2023 12:18:18 09/09/19 24 09/16/2023 DNA doubl e stran d Ab, QL, serum DNA Ab; double stranded NEGATI VE negati ve Not Available [facility] [address] [place] [address], 94714, 09/16/2023 15:13:20 09/09/19 24 09/18/2023 hla-B 27, blood hla-B27, DNA typing Not Available [facility] [address] [place] [address], 95887, 09/18/2023 11:38:39 09/09/19 24 09/18/2023 hla-B 27, blood hla-B27 NEGATI VE HLA-B *27 Negat alejandrina B27 allel e inter preta tion for all loci based on IMGT/ HLA datab ase versi on 3.51. 0 This test was devel oped and its perfo rmanc e tatum cteri stics deter mined by [facility]. It has not been clear ed or appro betty by the Food and Drug Admin istra tion. HLA Lab CLIA ID Patito cobb [id number] THis test was perfo rmed using Polym erase Chain React ion (PCR) and Seque nce Speci fic Oligo nucle otide Probe s (SSOP ) techn ique. Seque nce Based Typin g (SBT) may be used as a suppl ement al metho d when neces nader. If you have quest ions, pleas e call [facility] custo darinel servi ce at [phone] or email at [facility] [email or web address] . Not Available [facility] [address] [place] [address], 41012, 09/18/2023 11:38:39 09/09/19 24 09/09/2023 arthr itis panel arthritis panel Not Available [facility] [address] [place] [address], 65310, 09/09/2023 20:07:53 09/09/19 24 09/09/2023 arthr itis panel uric acid 4.2 mg/dL 4.4-7. 6 low Not Available [facility] [address] [place] [address], 61234, 09/09/2023 20:07:53 09/09/19 24 09/09/2023 arthr itis panel ENRIQUE screen PENDIN G Not Available [facility] [address] [place] [address], 87654, 09/09/2023 20:07:53 09/09/19 24 09/09/2023 arthr itis panel rf <3.5 IU/mL <3.5-1 4 Not Available [facility] [address] [place] [address], 97753, 09/09/2023 20:07:53 09/09/19 24 09/09/2023 arthr itis panel ccp antibody, IgG <0.54 U/mL <=4.9 Not Available [facility] [address] [place] [address], 97159, 09/09/2023 20:07:53 09/09/19 24 09/09/2023 arthr itis panel arthritis panel Not Available [facility] [address] [place] [address], 89912, 09/09/2023 19:42:18 09/09/19 24 09/09/2023 arthr itis panel uric acid 4.2 mg/dL 4.4-7. 6 low Not Available [facility] [address] [place] [address], 85616, 09/09/2023 19:42:18 09/09/19 24 09/09/2023 arthr itis panel ENRIUQE screen PENDIN G Not Available [facility] [address] [place] [address], 71189, 09/09/2023 19:42:18 09/09/19 24 09/09/2023 arthr itis panel rf PENDIN G Not Available [facility] [address] [place] [address], 64001, 09/09/2023 19:42:18 09/09/19 24 09/09/2023 arthr itis panel ccp antibody, IgG PENDIN G Not Available [facility] [address] [place] [address], 55629, 09/09/2023 19:42:18 09/09/19 24 09/09/2023 urena Ab + recoating machine operator Ab, serum sm and sm/recoating machine operator antibodies Not Available Jar[facility] ([facility]) [address] [place] [address], 07750, 05/14/2024 06:38:12 09/09/19 24 09/09/2023 urena Ab + recoating machine operator Ab, serum sm antibodies <0.2 ai 0.0-0. 9 Not Available [facility]) [address] [place] [address], [place], [address], 05/14/2024 06:38:12 09/09/19 24 09/09/2023 urena Ab + recoating machine operator Ab, serum recoating machine operator antibody 0.7 ai 0.0-0. 9 Not Available [facility] ([facility]) [address] [facility] [address], [place], [address], 05/14/2024 06:38:12 09/09/19 24 09/09/2023 ESR (eryt hrocy te sedim entat ion rate) , blood sed rate 49 mm/HR 0 - 20 high Not Available [facility] - [address], [address], 05/14/2024 06:38:12 09/09/19 24 09/09/2023 C-carlene ctive prote in, quant itati ve, serum or plasm a CRP Not Available [facility] [place] [address], [place], [address], 05/14/2024 06:38:11 09/09/19 24 09/09/2023 C-carlene ctive prote in, quant itati ve, serum or plasm a CRP 1.4 mg/dL <0.4-0 .5 high Not Available [facility] [place] [address], [place], [address], 05/14/2024 06:38:11 09/09/19 24 09/09/2023 C4 (comp lemen t), serum or plasm a complement C4 42 mg/dL 12-38 high Not Available [facility] [address], [place], [address], 05/14/2024 06:38:11 09/09/19 24 09/09/2023 C3 (comp lemen t), serum or plasm a complement C3 175 mg/dL 82-167 high Not Available [facility] [address], [place], [address], 05/14/2024 06:38:10 09/09/19 24 09/09/2023 DNA doubl e denise d Ab, QL, serum DNA antibody negati [...] on imgt/ hla datab ase versi on this test was devel oped and its perfo rmanc e tatum cteri stics deter mined by [facility]. IT has not been clear ed or appro betty by the food and drug admin istra tion. hla lab clia id patito cobb [id number] this test was perfo rmed using polym erase chain react ion (PCR) and seque nce speci fic oligo nucle otide probe s (ssop ) techn ique. seque nce based typin g (sbt) may BE used a suppl ement al metho d when neces nader. if you have quest ions, pleas e call [facility] ce at [phone] or email at [email or web address] [email or web address]. ----- Not Available Not Available 05/14/2024 [...] CMP, serum or plasm a GFR;non-afri can [place] 92 Not Available Not Available 05/14/2024 06:37:58 09/09/19 24 09/09/2023 CMP, serum or plasm a GFR; 111 (chrome cleaner caitlin kidne y disea se has A [...] Address Organization Details Recorded Time Hyperuricem ia 62606481 Active 2023 Onesimo Mejiaw [facility] 4 12:55:20 Mechanical low back pain 991149330 Active 2023 Onesimo Boswell [facility] 4 12:55:20 Pain of bilateral hands 8491450656552 9109 Active 2023 Sharondai Tan [facility] 5 13:12:35 Pain of multiple joints 57088684 Active 2023 Onesimolindsay Mejiaw [facility] 4 17:23:41 Osteoarthri tis 025402422 Active 2023 Kapil Ramirez MD [address] [place] [address], [phone], [facility] 4 18:36:54 Low back pain 057613198 Active 2023 Kapil Ramirez MD [address] [place] [address], 72429-[address], [facility] 4 18:37:01 C-reactive protein above reference range 1920372952891 04 Active 2023 Kapil Ramirez MD [address] [place] [address], 64424-138 3, [facility] 4 18:37:17 Generalized osteoarthri tis 330579627 Active 2024 Kapil Ramirez MD [address] [place] [address], 27[address]-177 3, 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 5 13:10:01 Headache caused by drug 7648943601919 04 Active 2024 Kapil Ramirez MD [address] [place] [address], 20906-486 3, [facility] 5 13:10:13 Pain in both feet 2256820893546 9102 Active 2024 [facility] 5 13:17:46 Seronegativ e rheumatoid arthritis 161683110 Active 2023 [facility]ga [facility] 4 11:38:53 Notes:Some problems listed i n Documents: #[id number], #[id number], #[id number], #[id number], #[id number] could not be added to this patient's chart. Please review these documents and add these problems to the patient's chart manually as needed. Problem Notes None recorded. Medical Equipment None Reported. Allergies Allergen ID Allergen Name Allergen Category Reaction Reaction Severity Criticality Documentation Date Start Date Code Code System Note Provider Name and Address Organization Details Recorded Time 6181405 Product containin g 3-hydroxy -3-methyl glutaryl- coenzyme A reductase inhibitor (product) medicatio n myalgias (muscle pain) Not available Not available 09/09/2023 13889 009 SNOMED [facility] 4 16:28:42 Medications Name Sig Start [...] Available Not Available prednisone 5 mg tablet TAKE 1/2 TABLET BY MOUTH EVERY DAY (2.5mg)do deann change at 11/26/24 appt. active Not Available Not Available No t [...] ONCE WEEKLY, TAKE 5 TABLETS BY MOUTH 11/26 completed d/c at appt Not Available Not Available Not Available tamsulosin [...] 1 TABLET BY MOUTH EVERYDAY AT BEDTIME 11/26 completed Not Available Not Available Not Available losartan 25 mg tablet TAKE 1 TABLET BY MOUTH AT BEDTIME active Not Available Not Available No t Available folic acid 1 mg tablet TAKE 1 TABLET BY MOUTH EVERY DAY 11/26 completed d/c at appt Not Available Not Available Not Available diclofenac sodium 50 mg tablet,alok yed release TAKE 1 TABLET DAILY NEEDED FOR PAIN. PATIENT IS TO USE SPARINGLY active Not Available Not Available No t Available nitrofurant oin monohydrate /macrocryst als 100 mg capsule TAKE 1 CAPSULE BY MOUTH EVERY 12 HOURS WITH FOOD 11/23 completed Not Available Not Available Not Available duloxetine 30 mg capsule,del ayed release TAKE 1 CAPSULE BY MOUTH EVERY DAY IN THE MORNING [...] saturation in Arterial blood by Pulse oximetry Systolic And Diastolic Provider Name and Address Organization Details Last Updated DateTime 5 185.42 cm 34.5 kg/m2 338121. 76 g 97 /min 96 % 96 % 140/82 mm[Hg] Chanelle Duke [facility] 5 12:07:17 Date Recorded Body height Body mass index (BMI) Body weight Heart rate Oxygen saturation Oxygen saturation in Arterial blood by Pulse oximetry Systolic And Diastolic Provider Name and Address Organization Details Last Updated DateTime 4 185.42 cm 34.7 kg/m2 648025. 79 g 97 /min 96 % 96 % 144/90 mm[Hg] [facility] 4 16:28:01 Date Recorded Body height Heart rate Oxygen saturation Oxygen saturation in Arterial blood by Pulse oximetry Systolic And Diastolic Provider Name and Address Organization Details Last Updated DateTime 5 185.42 cm 91 /min 91 % 91 % 150/112 mm[Hg] Duane Maddox [facility] 5 12:31:00 Date Recorded Body height Body mass index (BMI) Body weight Heart rate Oxygen saturation Oxygen saturation in Arterial blood by Pulse oximetry Systolic And Diastolic Provider Name and Address Organization Details Last Updated DateTime 4 185.42 cm 34.3 kg/m2 212215. 02 g 87 /min 97 % 97 % 136/88 mm[Hg] [facility] 4 11:02:29 Social History None recorded. Functional Status None recorded. Mental Status None recorded. Family History Relationship Description Onset Age of this Age Resolved Age Notes LastModified by Organization Details LastModified Time Father Malignant neoplasm of lung Not available 2023 16:29:23 Mother Malignant tumor of breast Not available 2023 16:29:34 Medical History No medical history recorded. Immunizations Vaccine Type Date Status Note Provider Nam e and Address Organization Details Recorded Time Influenza, split virus, quadrivalent, preservative 7 completed [facility] 09/09/2023 16:28:16 Influenza, split virus, quadrivalent, preservative 6 completed [facility] 09/09/2023 16:28:16 Past Encounters Encounter ID Performer Location Encounter Start Date Encounter Closed Date Diagnosis/Indication Diagnosis SNOMED-CT Code Diagnosis ICD10 Code Diagnosis Note [id number] Kapil Ramirez MD [address] [place] [address] Rheumatol og (ID) [address] [place] [phone] 09/09/2023 15:46:58 09/19/2023 15:24:05 Pain of multiple joints 42529408 M25.50 Osteoarthritis 865865689 M19.90 Low back pain 614563914 M54.50 C-reactive protein above reference range 3772970611 56353 R79.82 assisted current use of non-steroidal anti-inflammatory drug 9012523876 79423 Z79.1 Long-term current use of steroid 699063757 Z79.52 [id number] Kapil Ramirez MD [facility] [address] [place] [address] [employer] [facility] [place] [phone] 12/12/2023 10:21:06 12/17/2023 08:02:06 Pain of multiple joints 80724212 M25.50 Seronegati ve rheumatoid arthritis 376055802 M06.00 Polymyalgi a rheumatica 88781266 M35.3 Mechanical low back pain 924673949 M54.50 Hyperuricemia 79556121 E 79.0 Long-term current use of steroid 920053235 Z79.52 [id number] Kapil Ramirez MD [facility] Rheumatol og (ID) [id number] [facility] [employer] [place] [phone] 05/28/2024 11:57:14 05/30/2024 07:00:49 Seronegative rheumatoid arthritis 738867156 M06.00 Osteoarthritis 980372558 M19.90 Mechanical low back pain 108724741 M54.50 Hyperuricemia 34374908 E 79.0 Health Concerns Section Related Observation LastModified by Organization Detai ls LastModified Time None Recorded Concern Status LastModified by Organization Details LastModified Time None Recorded Advance Directives Directive None Recorded Payers Insurance Date Sequence Insurance Name Policy Number Policy Frazier Covered Member ID Frazier Member ID Guarantor Name 11/26/2024 1 [facility] (MEDICARE REPLACEMENT/A DVANTAGE - HMO) [id number] Odilon May [id number] Odilon Strawn 11/26/2024 2 [place] [facility] Odilon May [id number] [facility] 11/26/2024 3 [place] Odilon May [id number] Odilon May Notes Date Note Type Note [...] underlying autoimmune disease.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 He admits ebks-drn-bgyrxde he will use up to 1 g [...] the patient s past medical history and [employer] intake form.luis f Ramirez MD [facility] [address], [address], [facility] 09/10/2023 21:35:37 12/12/2023 text/html The patient is [...] gross hematuria.luis f Ramirez MD [address] [place] [address], [phone], [facility] 12/16/2023 22:41:49 05/28/2024 text/html The patient is [...] Appetite is normal.antonio Ramirez MD [address] [place] [address], [phone], [facility] 05/29/2024 17:51:19
--- OUTSIDE RECORDS SUMMARY | 2024-11-27 07:57 | XMS_ITS | Data Portability ---
Author Organization [facility] [employer], Main Office Address [address] [place] [address] Assessment No assessment recorded. Plan of Treatment [...] negative karena/ l) Negati ve Not Available Z_h[facility]_[address], [address], [address], 09/27/2021 08:48:41 09/28/19 22 09/27/2021 urina lysis , dipst ick Nitrite (reference rage: negative mg/dl) negati ve Not Available Z_h[facility]_[address], [address], 09/27/2021 08:48:41 09/28/19 22 09/27/2021 urina lysis , dipst ick Urobilinogen (reference range: 0.2-1 mg/dl) 0.2 Not Available [facility], [address] [place], [address], 09/27/2021 08:48:41 09/28/19 22 09/27/2021 urina lysis , dipst ick Protein (reference range: negative mg/dl) Negati ve Not Available [facility] [address] [place] [address], [address], 09/27/2021 08:48:41 09/28/19 22 09/27/2021 urina lysis , dipst ick pH (reference range: 5-7) 5.5 Not Available [address], [address], 09/27/2021 08:48:41 09/28/19 22 09/27/2021 urina lysis , dipst ick Blood (reference range: negative Evan/ l) Negati ve Not Available [facility] [address] [place] [address], [address], 09/27/2021 08:48:41 09/28/19 22 09/27/2021 urina lysis , dipst ick Specific [place] (reference range: 1.005-1.030) 1.030 Not Available [facility] [address] [place] [address], [place], [address], 09/27/2021 08:48:41 09/28/19 22 09/27/2021 urina lysis , dipst ick Ketone (reference range: negative mg/dl) Negati ve Not Available [address], [address], 09/27/2021 08:48:41 09/28/19 22 09/27/2021 urina lysis , dipst ick Bilirubin (reference range: negative mg/dl) Negati ve Not Available [address], [address], 09/27/2021 08:48:41 09/28/19 22 09/27/2021 urina lysis , dipst ick Glucose (reference range: negative mg/dl) Negati ve Not Available [address], [address], 09/27/2021 08:48:41 09/28/19 22 09/27/2021 urina lysis , dipst ick Appearance Clear Not Available [address], [address], 09/27/2021 08:48:41 09/28/19 22 09/27/2021 urina lysis , dipst ick Color Yellow Not Available [address], [address], 09/27/2021 08:48:41 09/28/19 22 09/27/2021 , bla er No observ ation record ed. [id number], [address], 07/19/2022 01:01:20 10/26/19 23 10/24/2022 biops y, prost ate, needl e (PROC ) No observ ation record ed. [email or web address] Not Available 2022 11:11:32 Result Notes None recorded. Problems Name Problem SNOMED Code Status Onset Date Resolution Date Notes Provider Name and Address Organization Details Recorded Time Benign prostatic hyperplasia with outflow obstruction 241621295 Active 2021 Not Available [facility] 3 01:00:06 Prostate specific antigen above reference range 471111046 Active 2021 Not Available [facility] 3 01:00:06 Malignant neoplasm of prostate 862229892 Active 2021 Not Available [facility] 3 01:00:06 Carcinoma of prostate 707609211 Active 2022 Ana María franklin, [facility] [email or web address] [facility] 3 16:12:15 Benign prostatic hyperplasia 019284130 Active 2022 Wesley Sadler MD [address], [address], [place], [address] , [employer] [facility] 3 12:28:03 Problem Notes None recorded. Procedures Surgical History Date Name Laterality Status Provider Name and Address Organization Details Recorded Time 10/25/19 Prostate Biopsy JTA completed Wesley Sadler MD [address], [address], [place], [address], [employer] [facility] 10/24/2022 12:25:57 wrist repair completed Not Available [facility] 07/19/2022 00:59:11 Knee Replacement completed Not Available [facility] 07/19/2022 00:59:11 Imaging Results None recorded. Procedure Notes None recorded. Medical Equipment None Reported. Allergies Allergen ID Allergen Name Allergen Category Reaction Reaction Severity Criticality Documentation Date Start Date Code Code System Note Provider Name and Address Organization Details Recorded Time 34832 Product containin g 3-hydroxy -3-methyl glutaryl- coenzyme A reductase inhibitor (product) medicatio n Not available Not available Not available 07/19/2022 76999 009 SNOMED Not Available [facility] 3 01:01:06 Medications Name Sig [...] cm 96 % 96 % 98.6 [degF] 494686. 46 g Not Available [facility] 3 00:59:23 Date Recorded Body height Provider Name an d Address Organization Details Last Updated DateTime 10/24/2022 185.42 cm Mago Valadez MA [facility] [employer] 10/24/2022 11:59:45 Date Recorded Body mass index (BMI) Body weight Body temperature Heart rate Provider Name and Address Organization Details Last Updated DateTime 10/24/2022 33.5 kg/m2 196903.46 g 98.4 [degF] 77 /min GUERO Crump [facility] [employer] 10/24/2022 12:11:58 Date Recorded Body mass index (BMI) Body height Oxygen saturation Oxygen saturation in Arterial blood by Pulse oximetry Body temperature Body weight Provider Name and Address Organization Details Last Updated DateTime 2 33.5 kg/m2 185.42 cm 95 % 95 % 98.4 [degF] 094707. 46 g Not Available [facility] 3 00:59:24 Date Recorded Body height Body mass index (BMI) Body weight Heart rate Oxygen saturation Oxygen saturation in Arterial blood by Pulse oximetry Body temperature Provider Name and Address Organization Details Last Updated DateTime 3 185.42 cm 0.3 kg/m2 907.18 g 111 /min 99 % 99 % 97.9 [degF] GUERO Crump [facility] 3 10:20:03 Date Recorded Body mass index (BMI) Body height Oxygen saturation Oxygen saturation in Arterial blood by Pulse oximetry Heart rate Body temperature Body weight Provider Name and Address Organization Details Last Updated DateTime 2 33.4 kg/m2 185.42 cm 99 % 99 % 91 /min 98.1 [degF] 483244. 87 g Not Available [facility] 3 00:59:24 Social History Question Answer Notes LastModified by [employer] Details LastModified Time Tobacco Smoking Status Never Smoker Not Available [facility] 07/19/2022 00:58:23 What Is Your Level Of Caffeine Consumption? Moderate [id number] Information not available 07/19/2022 What Was The Date Of Your Most Recent Tobacco Screening? 10/25/2021 [id number] 026 Information not available 07/19/2022 Has Tobacco Cessation Counseling Been Provided? No [id number] 026 Information not available 07/19/2022 Sex: Unknown Functional Status Question Answer Note LastModified by [employer] Details LastModified Time Do you use any illicit or recreational drugs? No [id number] 26 Information not available 07/19/2022 Do you or have you ever used any other forms of tobacco or nicotine? No [id number] 26 Information not available 07/19/2022 What is your level of alcohol consumption? None [id number] 26 Information not available 07/19/2022 Mental Status None recorded. Family History Relationship Description Onset Age of this Age Resolved Age Notes LastModified by Organization Details LastModified Time Unspecified Relation Diabetes mellitus MIGRATION.465 [id number] Not available 07/19/2022 00:59:12 Unspecified Relation Heart disease MIGRATION.493 [id number] Not available 07/19/2022 00:59:12 Unspecified Relation Hypertensive disorder MIGRATION.307 [id number] Not available 07/19/2022 00:59:12 Paternal Grandfather Malignant neoplasm of prostate MIGRATION.788 [id number] Not available 07/19/2022 00:59:12 Mother Malignant tumor of breast MIGRATION.019 [id number] Not available 07/19/2022 00:59:12 Father Malignant neoplasm of lung MIGRATION.285 [id number] Not available 07/19/2022 00:59:12 Medical History Condition Response ARTHRITIS Y HYPERTENSION Y Past Encounters Encounter ID Performer Location Encounter Start Date Encounter Closed Date Diagnosis/Indication Diagnosis SNOMED-CT Code Diagnosis ICD10 Code Diagnosis Note [id number] MD NILDA Muñoz [place] [address] 1 09/27/2021 00:00:00 09/27/2021 10:07:34 [id number] MD NILDA Muñoz [place] [address] 1 10/11/2021 00:00:00 10/11/2021 10:59:41 [id number] MD NILDA Muñoz [place] [address] 1 10/25/2021 00:00:00 10/25/2021 13:07:48 [id number] MD NILDA Muñoz [place] [address] 1 04/25/2022 00:00:00 04/25/2022 13:07:17 [id number] MD NILDA Muñoz [place] [address] 1 10/24/2022 11:54:17 10/24/2022 12:34:53 Malignant neoplasm of prostate 064691336 C61 :10/11/2021 TRUSBx - GS 6, 5/12, 90%, all on the XORWQkF2t, 22cc, no median lobe, PSA 4.2 -PERTINENT IMAGING: None------ ------:-Th is patient has a diagnosis of LOW risk prostate cancer. Based on his available clinical informatio n, it appears his malignancy is localized, leaving him with some options in his management . -We highlightpenny kang in our discussion the difference between his [facility] Pre-Prosta tectomy Nomogram his 99% 13y CSS [...] 22cc, no nodules, no median lobe, PSA 5.5)-RT 4-5 weeks for path review [id number] Wesley Sadler MD [facility] [address] [place] [address] 12/12/2022 10:11:21 12/12/2022 10:49:52 Malignant neoplasm of prostate [id number] C61 :10/11/2021 TRUSBx - GS 6, 5/12, 90%, all on the HAHUZgP7m, 22cc, no median lobe, PSA 4.2 10/24/2022 [...] in our discussion the difference between his [facility] Pre-Prosta tectomy Nomogram his 98% 13y CSS [...] discuss this further with Dr. Galindo in [facility]. Due to lack of services for Radical Prostatect geri and Radiation at [place], and given patient's fixed income and need for in-network services, he is amenable to referral to [facility] Urology for further counseling regarding treatment [...] Member ID Frazier Member ID Guarantor Name 12/09/2022 1 [employer] (MEDICARE REPLACEMENT/A DVANTAGE - [place]PO) [id number] Oidlon May [id number] Odilon May 12/12/2022 2 [place] [facility] PUBLIC AID Odilon May [id number] Odilon May Notes Date Note Type Note Provider Name and Address Organization Details Recorded Time 10/24/2022 text/html :ORIGINAL HPI 09/27/2021 - Patient presents (with his daughter) for evaluation of elevated PSA. He was seen by Dr. Krzysztof Bridges in [place], [place], was advised to get a prostate biopsy, but due to being out of network and on a fixed income, has sought this service elsewhere. -INITIAL DIAGNOSIS: 10/11/2021 TRUSBx - GS 6, 09/28, 90%, all on the HGXYFvB9t, 22cc, no median lobe, PSA 4.2 -PERTINENT [...] PSA stable as above Wesley Sadler MD [address] [place] [address], [place], [address], [facility] [employer] 10/24/2022 12:27:14 12/12/2022 text/html :ORIGINAL HPI 09/27/2021 - Patient presents (with his daughter) for evaluation of elevated PSA. He was seen by Dr. Krzysztof Bridges in [place], [place], was advised to get a prostate biopsy, but due to being out of network and on a fixed income, has sought this service elsewhere. -INITIAL DIAGNOSIS:10/11/2021 TRUSBx - GS 6, 5, 90%, all on the PXWWLmL7s, 22cc, no median lobe, PSA 4.2 10/24/2022 TRUSBx - GS 3+4=7, 5 cores, all on the RIGHT, 80%cT1c, no [...] services for Radical Prostatectomy and Radiation at [place], and given patient's fixed income and need for in-network services, he is amenable to referral to [facility] Urology for further counseling regarding treatment options. We will make that referral, and he will keep his December 12 follow up with use to ensure things are moving forward. 12/12/2022 - Patient presents in follow up after referral to [facility] Urology for eval/managment of prostate cancer -- he reports his appt got rescheduled, so now meets with Dr. Galindo 01/05/2023 -- here to discuss RALP vs IMRT with his daughter Wesley Sadler MD [address] [place] [address], [address] [place] [address], [place], [address], [facility] [employer] 12/12/2022 10:53:29
--- OUTSIDE RECORDS SUMMARY | 2024-11-27 07:57 | XMS_ITS | Clinical Summary ---
Author Organization [facility] Address [address] [place] [address] Phone Care Team Providers Care Hull And Deck Remover Name Role Phone Mikel Krueger MD Primary Care Provider [phone] Allergies Active Allergy Reactions Criticality Noted Date [...] on file Legal Sex Male 8:22 AM INDUSTRIAL GAS PRODUCTION OPERATOR Gender Identity Not on file Sexual Orientation Not on file Last Filed Vital Signs Vital Sign Reading Time Taken Comments Blood Pressure 122/82 07/03/2021 9:10 AM INDUSTRIAL GAS PRODUCTION OPERATOR Pulse 102 07/03/2021 9:10 AM INDUSTRIAL GAS PRODUCTION OPERATOR Temperature 36.4 C (97.6 F) 07/03/2021 9:10 AM INDUSTRIAL GAS PRODUCTION OPERATOR Respiratory Rate 20 07/03/2021 9:10 AM INDUSTRIAL GAS PRODUCTION OPERATOR Oxygen Saturation 97% 07/03/2021 9:10 AM INDUSTRIAL GAS PRODUCTION OPERATOR Inhaled Oxygen Concentration - - Weight 115.3 kg (254 lb 3.2 oz) 07/03/2021 9:10 AM INDUSTRIAL GAS PRODUCTION OPERATOR Height 185.4 cm (6' 1) 07/03/2021 9:10 AM INDUSTRIAL GAS PRODUCTION OPERATOR Body Mass Index 33.54 07/03/2021 9:10 AM INDUSTRIAL GAS PRODUCTION OPERATOR Plan of Treatment Health Maintenance Due Date Last Done Comments Hepatitis C Virus (HCV) Screening 1965 TdaP Immunization 1965 Cologuard 11/10/2008 Colonoscopy 11/10/2008 Colorectal Cancer Screening 11/10/2008 Immunochemical Fecal Occult Blood 11/10/2008 Pneumococcal Immunization (5 0+ years) (1 of 1 - PCV) 11/10/2013 Zoster Immunization (1 of 2) 11/10/2013 SARS-COV-2 Immunization (1 - season) 2024 Influenza Immunization (#1) 01/18/202502/18, 05/09/2016 Respiratory Syncytial Virus (RSV) Immunization (Adult) (1 - 1-dose 75+ series) 11/10/2038 PSA Discussion Discontinued 07/03/2021 Hepatitis B Immunization Aged Out No longer eligible based on patient's age to complete this topic Human Papillomavirus (HPV) Immunization Aged Out No longer eligible based on patient's age to complete this topic Meningococcal Immunization (ACWY) Aged Out No longer eligible based on patient's age to complete this topic Rotavirus Immunization Aged Out No lo nger eligible based on patient's age to complete this topic Procedures Procedure Name Priority Date/Time Associated Diagnosis Comments PSA SCREEN Routine 07/03/2021 10:28 AM INDUSTRIAL GAS PRODUCTION OPERATOR Elevated PSA from Last 3 Months or Most Recently Relevant to Health Maintenance Results * (ABNORMAL) PSA SCREEN (07/03/2021 10:28 AM INDUSTRIAL GAS PRODUCTION OPERATOR) PSA SCREEN, TOTAL 6.22(H) <=4.00 ng/mL 07/03/2021 12:02 PM INDUSTRIAL GAS PRODUCTION OPERATOR [facility] Blood Venipuncture / Unknown 07/03/2021 10:28 AM INDUSTRIAL GAS PRODUCTION OPERATOR 07/03/2021 10:51 AM INDUSTRIAL GAS PRODUCTION OPERATOR Narrative [facility] - 07/03/2021 12:02 PM INDUSTRIAL GAS PRODUCTION OPERATOR PSA NOTE: The PSA value should be used in conjunction with information available from clinical evaluation and other diagnostic procedures. us Elias Bridges MD CHEMISTRY ORDERABLES Final Result [facility] [address] [place] [address] from Last 3 Months or Most Recently Relevant to Health Maintenance Insurance MEDICARE C [employer] Advance Directives Documents on File Type Date Recorded Patient Ore Miner Expl anation Other Advance Directive 07/05/2021 3:54 PM PSA LAB RESULTS Care Teams Hull And Deck Remover Relationship Specialty Start Date End Date Mikel Krueger MD [address] [place] [address] PCP - General Internal Medicine 06/02/21
--- OUTSIDE RECORDS SUMMARY | 2024-11-27 07:57 | XMS_ITS | Referral Summary ---
Author Organization [facility] Address [address] [place] [address] Care Team Providers Care Credit Card Control Clerk Name Role Phone Mikel Krueger MD Primary Care Provider [phone] Encounters Date Type Department Care Team Description 11/23/2024 Telephone [facility] Cardiology [address] [place] [address] No, Physician from Last 3 Months Allergies Active Allergy Reactions Criticality Noted Date Comments Ezetimibe Muscle pain High Reaction: myalgias, Cmxilrr-Ohi-Jgo Reductase Inhibitors Muscle pain High Reaction: myalgias, [...] on file Legal Sex Male 12:50 AM SIGNAL REPAIRER Gender Identity Not on file Sexual Orientation Not on file Last Filed Vital Signs Vital Sign Reading Time Taken Comments Blood Pressure 155/94 07/25/2018 8:36 AM SIGNAL REPAIRER Pulse 106 07/25/2018 8:36 AM SIGNAL REPAIRER Temperature - - Respiratory Rate - - Oxygen Saturation - - Inhaled Oxygen Concentration - - Weight 118.8 kg (262 lb) 07/25/2018 8:36 AM SIGNAL REPAIRER Height 185.4 cm (6' 1) 07/25/2018 8:36 AM SIGNAL REPAIRER Body Mass Index 34.57 07/25/2018 8:36 AM SIGNAL REPAIRER Plan of Treatment Not on file Insurance [facility] MEDICARE ADVANTAGE Care Teams Credit Card Control Clerk Relationship Specialty Start Date End Date Mikel Krueger MD PCP - General 07/06/16
--- OUTSIDE RECORDS SUMMARY | 2024-11-27 07:57 | XMS_ITS | Clinical Summary ---
Author Organization [facility] Address [address] [place] [address] Care Team Providers Care Medical Administrative Technician Name Role Phone Mikel Krueger MD Primary [...] 10:22 AM CDT Height 177.8 cm (5' 10) 03/07/2021 10:22 AM CDT Body Mass Index [...] this topic Medical Devices Implanted Type Area Material Scheduler Device Identifier Shelf Expiration Date Model / Serial / Lot Cement Simplex Hv W/Gentamicin - [id number] Implanted:Qty: 1 on 02/09/2019 by Jelani De Leon MD at [facility] Right: Knee [employer] 02/17/2020 6195-1-010 / / [id number] Cement Simplex Hv W/Gentamicin - [id number] Implanted:Qty: 1 on 02/09/2019 by Jelani De Leon MD at [facility] Right: Knee [employer] 02/17/2020 6195-1-010 / / [id number] Attune Femoral Posterior Stabilized Size 6 Right Cemented Implanted:Qty: 1 on 02/09/2019 by Jelani De Leon MD at [facility] Right: Knee 11/16/2028 1504-03-08 6 / / [id number] Attune Knee System Tibial Base Rotating Platform Implanted:Qty: 1 on 02/09/2019 by Jelani De Leon MD at [facility] Right: Knee 07/17/2028 6 / / [id number] Attune Patella Medialized Dome Implanted:Qty: 1 on 02/09/2019 by Jelani De Leon MD at [facility] Right: Knee 04/18/2023 8 / / [id number] Attune Tibial Insert Rotating Platform Posterior Stabilized Implanted:Qty: 1 on 02/09/2019 by Jelani De Leon MD at [facility] Right: Knee 07/17/2021 0 / / [id number] Explanted Type Area Material Scheduler Device Identifier Shelf Expiration Date Model / Serial / Lot Drill Bit Synthes 2.5 Qc 110mm Gold - [id number] Explanted:Qty: 1 on 02/09/2019 at [facility] Right: Knee [employer]ES 310.25 / / Insurance [facility] Advance Directives * Full Code (Latest Code Status on File) Date Activated Date Inactivated Comments 02/09/2019 10:30 AM 02/11/2019 1:10 PM Care Teams Medical Administrative Technician Relationship Specialty Start Date End Date Mikel Krueger MD [address] [place] [address] PCP - General INTERNAL MEDICINE 01/23/19
--- OUTSIDE RECORDS SUMMARY | 2024-11-27 07:57 | XMS_ITS | Clinical Summary ---
Author Organization [facility] Address [address] [place] [address] Care Team Providers Care Station Installation Supervisor Name Role Phone Mikel Krueger MD Primary Care Provider [phone] Allergies Active Allergy Reactions Criticality Noted Date Comments Ezetimibe Muscle pain High Reaction: myalgias, Xxanxqx-Zaj-Xlj Reductase Inhibitors Muscle pain High Reaction: myalgias, [...] NEC/NOS Adiposity 04/23/2008 Overview (08/22/2016): OBESITY NOS Encounters Date Type Department Care Team Description 11/23/2024 Telephone [facility] Cardiology [address] [place] [address] No, Physician from Last 3 Months Immunizations Immunization Administration Dates Next Due Influenza, [...] 01/1990 L wrist cartila ge tear; Comments: [facility] this injury has had multiple [...] -throat ; Diabetes Sister [facility]; Relation Name Status Comments Daughter Lyssa Father [...] on file Legal Sex Male 12:50 AM GARNETT FIXER Gender Identity Not on file Sexual Orientation Not on file Obstetrics History Last Filed Vital Signs Vital Sign Reading Time Taken Comments Blood Pressure 155/94 07/25/2018 8:36 AM GARNETT FIXER Pulse 106 07/25/2018 8:36 AM GARNETT FIXER Temperature - - Respiratory Rate - - Oxygen Saturation - - Inhaled Oxygen Concentration - - Weight 118.8 kg (262 lb) 07/25/2018 8:36 AM GARNETT FIXER Height 185.4 cm (6' 1) 07/25/2018 8:36 AM GARNETT FIXER Body Mass Index 34.57 07/25/2018 8:36 AM GARNETT FIXER Plan of Treatment Not on file Insurance [facility] Address: [address] [place] [address] MEDICARE ADVANTAGE Care Teams Station Installation Supervisor Relationship Specialty Start Date End Date Mikel Krueger MD PCP - General 07/06/16
--- OUTSIDE RECORDS SUMMARY | 2024-11-27 07:58 | XMS_ITS | Clinical Summary ---
Author Organization [facility] Address [address] [place] [address] Care Team Providers Care Descriptive Catalog Librarian Name Role Phone Mikel Krueger MD Primary Care Provider Source Comments [facility],non-owned Affiliates and Associated Physician Practices is amultiple site organization consisting of ambulatory clinics and hospital sitesin [place], [place], [place] and [place]. This disclosure is being madepursuant to the Care Everywhere program and may not contain all information available regarding this patient. Last updated 18.[facility] Allergies Active Allergy Reactions Criticality Noted Date [...] by mouth once daily Active HYDROcodone-acet aminophen ([place]) 5-325 MG tabletIndication s:Prostate cancer (HCC) Take [...] on file Legal Sex Male 5:50 AM EMPLOYEE'S REPRESENTATIVE Gender Identity Not on file Sexual Orientation Not on file Last Filed Vital Signs Vital Sign Reading Time Taken Comments Blood Pressure 133/83 06/05/2023 12:08 PM EMPLOYEE'S REPRESENTATIVE Pulse 91 06/05/2023 12:08 PM EMPLOYEE'S REPRESENTATIVE Temperature 36.6 C (97.9 F) 06/05/2023 12:08 PM EMPLOYEE'S REPRESENTATIVE Respiratory Rate 18 03/01/2023 10:49 AM CDT Oxygen Saturation 95% 06/05/2023 12:08 PM EMPLOYEE'S REPRESENTATIVE Inhaled Oxygen Concentration - - Weight 112 kg (247 lb) 06/05/2023 12:08 PM EMPLOYEE'S REPRESENTATIVE Height 185.4 cm (6' 1) 06/05/2023 12:08 PM EMPLOYEE'S REPRESENTATIVE Body Mass Index 32.59 06/05/2023 12:08 PM EMPLOYEE'S REPRESENTATIVE Plan of Treatment Health Maintenance Due Date [...] MEDICARE AWV CALENDAR YEAR 2024 INFLUENZA VACCINE (#1) 2025 07/06/2011 SCREENING FOR DIABETES 05/28/2027 , 05/28/2024, 02/05/2023 Respiratory Syncytial Virus (RSV) Vaccine Pt: [...] to complete this topic MENINGOCOCCAL (Group B) VACCINE SHARED DECISION-MAKING Aged Out No longer eligible based on [...] METABOLIC PANEL (CALCIUM TOTAL) (02/05/2023 11:05 AM [facility]) BUN 16 7 - 26 mg/dL 02/05/2023 11:52 AM [facility] Creatinine 0.94 0.71 - 1.16 mg/dL 02/05/2023 11:52 AM [facility] Sodium 141 136 - 145 mmol/L 02/05/2023 11:52 AM [facility] Potassium 4.1 3.5 - 4.5 mmol/L 02/05/2023 11:52 AM [facility] Chloride 106 98 - 107 mmol/L 02/05/2023 11:52 AM [facility] CO2 28 22 - 29 mmol/L 02/05/2023 11:52 AM [facility] Glucose 105 70 - 115 mg/dL 02/05/2023 11:52 AM [facility] Calcium 9.7 8.4 - 10.2 mg/dL 02/05/2023 11:52 AM [facility] Anion Gap 7 6 - 16 02/05/2023 11:52 AM [facility] BUN/Creatinine Ratio 17 7 - 23 02/05/2023 11:52 AM [facility] Osmolality Calculated 294 270 - 300 mOsm/kg 02/05/2023 11:52 AM [facility] eGFR by CKD-EPI >90 >=90 mL/min/1.7 3 m2 02/05/2023 11:52 AM [facility] Blood BLOOD SPECIMEN / Unknown Lab Venipuncture / Unknown 02/05/2023 11:05 AM [facility] 02/05/2023 11:25 AM [facility] Lamberto Galindo MD LAB - CHEMISTRY ORDERABLES Final Result [facility] [address] [place] [address], [facility] [phone] from Last 3 Months or Most Recently Relevant to Health Maintenance Insurance [facility] MANAGED MEDICARE ADV Advance Directives * Full Code (Latest Code Status on File) Date Activated Date Inactivated Comments 02/19/2023 8:00 PM 02/20/2023 12:32 PM Care Teams Descriptive Catalog Librarian Relationship Specialty Start Date End Date Mikel Krueger MD [address] [place] [address] PCP - General 09/19/21
== END 2024-11-27 07:53 | disposition home or self-care (01) ==
PROVIDERS: PCP Internal Medicine; Visit Provider Internal Medicine Rheumatology
DX: I73.9 Peripheral vascular disease, unspecified (principal); M79.671 Pain in right foot; M79.672 Pain in left foot; Z98.890 Other specified postprocedural states
CPT/HCPCS: 73110; 73130; 73600; 73630; 93922

== ENCOUNTER 2024-12-01 09:45 | Outpatient (RCR) | payer MEDICARE, SELFPAY ==
--- NOTE | 2024-12-01 12:01 | OPREHPOC ---
Outpatient Therapy Plan of Care This is a Multidisciplinary Plan of Care that may contain components documented by all disciplines (PT, OT, and ST.) PT Problem 1 PT Problem #1 Knowledge Deficit PT Goal 1 Goal / Goal Update The patient will be independent in a home exercise program. Target Visit 4 PT Problem 2 PT Problem #2 Impaired Functional Mobility PT Goal 1 Goal / Goal Update The patient will be able to transfer sit to stand with use of the UE for 5 repetitions. The patient will demonstrate 25% or less self perceived disability per the LEFS questionnaire. Target Visit 10 PT Problem 3 PT Problem #3 Impaired Flexibility PT Goal 1 Goal / Goal Update The patient will demonstrate 10 degrees bilateral ankle dorsiflexion AROM with the knee extended indicating improved gastroc/soleus flexibility. PT Problem 4 PT Problem #4 Impaired Strength PT Goal 1 Goal / Goal Update The patient will demonstrate at least 4/5 bilateral ankle strength in all planes to improve standing tolerance. Target Visit 10 PT Problem 5 PT Problem #5 Impaired Balance PT Goal 1 Goal / Goal Update The patient will score 25 or greater on the Tinetti Balance Scale indicating low fall risk. Target Visit 10
--- NOTE | 2024-12-01 12:01 | PTOPEVAL1 ---
Assessment and note entered by Sharonda Castro, PT Evaluation Information Assessment Status Evaluation Diagnosis Bilateral Lower Leg Weakness ICD-10 Condition Codes (PT) Pain in right ankle and joints of right foot M25. 571,Pain in left ankle and joints of left foot M25 .572 Other ICD-10 Condition Codes ( R29.898 PT) Subjective Information Odilon May reports he has been having weakness in his legs. He notes he has trouble standing up from sitting and has difficulty standing for long periods. He had x-rays and a blood flow test last week with showed mild oA and no PAD. He notes most of his issue is in his calf muscles which seem to be weak and can become painful with standing for long periods. 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 He denies changes in back pain that correlates with the onset of weakness. He is still active helping his friend with his race car. He notes his standing tolerance is about 30 minutes. He has difficulty squatting as well. He denies falls. Reported Pain Level Pain Score 3,4,3: Self Report Assessment PT Clinical Summary Odilon May presents with bilateral lower leg weakness and pain. He had an insidious onset of symptoms 2 months ago. He had x-rays and ankle brachial index as well as a doppler last week. The x-rays showed mild osteoarthritis in the ankle and foot. The OSWALD and doppler were negative. He has difficulty with standing longer than 30 minutes and standing up after prolonged sitting. He objectively demonstrates tenderness in the peroneals and gastrocnemius L > R; decreased gastrocnemius and hamstring flexibility; decreased ankle inversion AROM; decreased bilateral ankle strength; decreased balance; and altered gait. He will benefit from skilled PT to address these limitations. Plan of Care Interventions Electrical Stimulation,Gait Training,Hot Pack/Cold Pack,Manual Therapy,Neuro Re-education,Patient/ Caregiver Education,Therapeutic Activities, Therapeutic Exercise PT Services Indicated Yes Treatment Frequency and 2 times a week for 10 visits Duration These treatments will address the objective and functional deficits as defined above. The patient will be advanced safely and appropriately in order for the patient to progress towards his/her prior level of function. Additional exercises will be introduced and as well as a comprehensive home exercise program upon discharge, if needed, ?to ensure carryover of functional gains achieved in the clinic. This treatment plan has been reviewed and agreement upon by the patient.
--- NOTE | 2024-12-30 16:10 | OPREHPOC ---
Outpatient Therapy Plan of Care This is a Multidisciplinary Plan of Care that may contain components documented by all disciplines (PT, OT, and ST.) PT Problem 1 PT Problem #1 Knowledge Deficit PT Goal 1 Goal / Goal Update The patient will be independent in a home exercise program. Target Visit 4 Progress Met PT Problem 2 PT Problem #2 Impaired Functional Mobility PT Goal 1 Goal / Goal Update The patient will be able to transfer sit to stand with use of the UE for 5 repetitions. -met The patient will demonstrate 25% or less self perceived disability per the LEFS questionnaire. -not met Target Visit 10 Progress Partially Met PT Problem 3 PT Problem #3 Impaired Flexibility PT Goal 1 Goal / Goal Update The patient will demonstrate 10 degrees bilateral ankle dorsiflexion AROM with the knee extended indicating improved gastroc/soleus flexibility. Progress Partially Met PT Problem 4 PT Problem #4 Impaired Strength PT Goal 1 Goal / Goal Update The patient will demonstrate at least 4/5 bilateral ankle strength in all planes to improve standing tolerance. Target Visit 10 Progress Met PT Problem 5 PT Problem #5 Impaired Balance PT Goal 1 Goal / Goal Update The patient will score 25 or greater on the Tinetti Balance Scale indicating low fall risk. Target Visit 10 Progress Met
--- NOTE | 2024-12-30 16:10 | PTOPEVAL1 ---
Assessment and note entered by Sharonda Castro, PT Evaluation Information Assessment Status Evaluation Diagnosis Bilateral Lower Leg Weakness ICD-10 Condition Codes (PT) Pain in right ankle and joints of right foot M25. 571,Pain in left ankle and joints of left foot M25 .572 Other ICD-10 Condition Codes ( R29.898 PT) Subjective Information Odilon May reports he notes less pain in his calves but he has had an increase in left knee and ankle pain recently. He has also noted an increase in burning and tingling in both of his feet. He has been diagnosed with rheumatoid arthritis and neuropathy. He feels his left knee arthritis is getting worse and he needs to see an sharepoint specialist. Reported Pain Level Pain Score 8,7,0,0: Self Report Pain Score 7,7,5,1: Self Report Assessment PT Clinical Summary Odilon May has completed 10 skilled PT visits for bilateral LE weakness. He is reporting less pain in his calves and less tightness however, he has worse pain in the left knee and left ankle lately as well as increased burning and numbness in his feet. He demonstrates improved flexibility in his hamstrings and gastrocnemius, improved strength in bilateral LE, and improved balance. He continues to demonstrate decreased left ankle AROM, decreased left knee strength, and impaired gait. He was referred to an sharepoint specialist and will be discharged from formal PT to an independent [facility]. Plan of Care Interventions Manual Therapy,Neuro Re-education,Patient/ Caregiver Education,Therapeutic Exercise PT Services Indicated No Treatment Frequency and Discharge Duration These treatments will address the objective and functional deficits as defined above. The patient will be advanced safely and appropriately in order for the patient to progress towards his/her prior level of function. Additional exercises will be introduced and as well as a comprehensive home exercise program upon discharge, if needed, ?to ensure carryover of functional gains achieved in the clinic. This treatment plan has been reviewed and agreement upon by the patient.
== END 2024-12-30 16:54 | disposition home or self-care (01) ==
LOC: CHSPT 09:45
PROVIDERS: PCP Internal Medicine; Visit Provider Internal Medicine
DX: R29.898 Other symptoms and signs involving the musculoskeletal system (principal); R53.1 Weakness; M25.572 Pain in left ankle and joints of left foot; M25.571 Pain in right ankle and joints of right foot
CPT/HCPCS: 97110; 97112; 97140; 97161; 97750

== ENCOUNTER 2025-04-07 16:37 | Outpatient (CLI) | payer MEDICARE, SELFPAY ==
--- NOTE | ~2025-04-07 | XR_ITS ---
EXAMINATION: XR chest 2V, 04/07/2025 17:10 [employer]OR OF [employer] LIVING HISTORY: COUGH COMPARISON: No comparisons available. Technique: 2 views obtained. Findings: The lungs are clear, no effusion. No pneumothorax. Heart is normal size. Mediastinal and hilar contours are within normal limits. Bony thorax no acute abnormality. Impression: No acute cardiopulmonary abnormality. Reviewed, dictated and finalized at location P. [employer] LIV[facility] Impression: No acute cardiopulmonary abnormality.
[2025-04-07 16:50] LABS: Hematocrit 44.7 % (40.0-54.0); Hemoglobin 14.7 g/dL (14.0-18.0); Mean Corpuscular HGB Conc 32.9 g/dL (32-36); Mean Corpuscular Hemoglobin 30.9 pg (27.0-31.0); Mean Corpuscular Volume 94.1 fL (78.0-102.0); Platelet Count Result 372 K/mm3 (150-420); Red Blood Count 4.75 M/mm3 (4.70-6.10); White Blood Count 11.9 K/mm3 (4.8-10.8)
[2025-04-07 17:22] LABS: Alanine Aminotransferase 27 U/L (6-50); Albumin Level 4.6 g/dL (3.5-5.1); Alkaline Phosphatase 102 U/L (38-126); Anion Gap 13 mmol/L (4-12); Aspartate Amino Transferase 27 U/L (17-59); Bilirubin,Total 0.6 mg/dL (0.2-1.3); Blood Urea Nitrogen 17 mg/dL (9-20); Calcium 9.8 mg/dL (8.4-10.2); Carbon Dioxide 25 mmol/L (22-30); Chloride 103 mmol/L (98-107); Estimated Glomerular Filt Rate > 60; Glucose 122 mg/dL (65-110); Osmolality Calculated 294 mOsm/kg (285-295); Potassium 4.3 mmol/L (3.4-5.0); Sodium 141 mmol/L (137-145); Total Protein 7.7 g/dL (6.3-8.2)
[2025-04-08 10:17] LABS: NT Pro B Type Natriuretic Pept 23 pg/mL (19.9-100)
== END 2025-04-07 16:38 | disposition home or self-care (01) ==
LOC: CHSLAB 16:38
PROVIDERS: PCP Internal Medicine; Visit Provider Nurse Practitioner Family
DX: R51.9 Headache, unspecified (principal); R50.9 Fever, unspecified; R05.1 Acute cough; R06.02 Shortness of breath
CPT/HCPCS: 36415; 71046; 80053; 83880; 85027